=== PATIENT | female | born 1955 | race African-American/Black ===

== ENCOUNTER → 2016-11-27 | Outpatient (CLI) | payer BC, MEDICARE | LOC: RAD 14:14 | PROVIDERS: ATTEND Family Medicine | DX: J44.9 Chronic obstructive pulmonary disease, unspecified (principal); L03.222 Acute lymphangitis of neck; R05 Cough | CPT/HCPCS: 70491; 71260 ==

== ENCOUNTER 2018-04-20 17:23 | Inpatient (IN) | payer BC, MEDICARE ==
--- NOTE | 2018-04-20 19:43 | ER Document Report ---
ED General - General Information source: Patient, Relative TRAVEL OUTSIDE OF THE [place] IN LAST 30 DAYS: No <JOLENE SKELTON - Last Filed: 04/20/18 23:03> <OLU PETERS - Last Filed: 04/21/18 03:22> - General Chief Complaint: Neck Swelling Stated Complaint: NECK SWELLING Time Seen by Provider: 04/20/18 19:38 Notes: 62 y.o female presents to the ED with LT sided neck edema of onset last night. Relative at bedside reports that she has had lymphadenopathy recently and had a biopsy of her bilateral cervical lymph nodes on 04/09/18, about 1.[address] Gama. He reports that the edema to her RT sided neck is the same since before her biopsy but that last night the LT side started to swell more. They report using cold compresses for the edema but were without any relief. Pt also reports pain to her LT sided neck and report taking Tylenol for her pain but is without any relief from her pain as well. She denies any ear pain or cough. Pt's PCP is Dr. Drake. She also reports a Hx of seizures and states that she has not taken her seizure medications tonight that she usually takes at 1800. ( JOLENE SKELTON) - Related Data Allergies/Adverse Reactions: No Known Allergies Allergy (Unverified 03/26/11 21:44) Past Medical History - General Information source: Patient, [facility] Records - Social History Smoking Status: Smoker,Current Status Unk Frequency of alcohol use: Previous records report heavy, current status unknown Family History: Reviewed & Not Pertinent, Other - Past Medical History Cardiac Medical History: Reports: Hx Hypertension Pulmonary Medical History: Reports: Hx Pneumonia Neurological Medical History: Reports: Hx Seizures Endocrine Medical History: Reports: Hx Diabetes Mellitus Type 2 Past Surgical History: Reports: Hx Neurologic Surgery - craniotomy. Denies: Hx Hysterectomy - Immunizations Hx Diphtheria, Pertussis, Tetanus Vaccination: No <JOLENE SKELTON - Last Filed: 04/20/18 23:03> Review of Systems - Review of Systems Constitutional: No symptoms reported EENT: See HPI. denies: Ear pain Cardiovascular: No symptoms reported Respiratory: See HPI. denies: Cough Gastrointestinal: No symptoms reported Genitourinary: No symptoms reported Female Genitourinary: No symptoms reported Musculoskeletal: No symptoms reported Skin: No symptoms reported Hematologic/Lymphatic: See HPI, Other - Edema to cervical lymphnodes, increased edema to Lt sided neck with pain Neurological/Psychological: No symptoms reported -: Yes All other systems reviewed and negative <JOLENE SKELTON - Last Filed: 04/20/18 23:03> Physical Exam <JOLENE SKELTON - Last Filed: 04/20/18 23:03> <OLU PETERS - Last Filed: 04/21/18 03:22> - Vital signs Vitals: Temp Pulse BP Pulse Ox 99.4 F 77 135/85 H 99 04/20/18 17:54 04/20/18 17:54 04/20/18 17:54 04/20/18 17:54 - Notes Notes: Physical Exam: General: Alert, appears well. HEENT: Normocephalic. Atraumatic. PERRL. Extraocular movements intact. Oropharynx clear. Neck: Supple. Cervical lymphadenopathy bilaterally. LT sided swelling and tenderness to palpation, no erythema or fluctuance. Respiratory: No respiratory distress. Clear and equal breath sounds bilaterally. Cardiovascular: Regular rate and rhythm. Abdominal: Normal Inspection. Non-tender. No distension. Normal Bowel Sounds. Back: Non-tender. No deformity or step off. Extremities: Moves all four extremities. Upper extremities: Normal inspection. Normal ROM. Lower extremities: Normal inspection. No edema. Normal ROM. Neurological: Normal cognition. AAOx3. Normal speech. Psychological: Normal affect. Normal Mood. Skin: Warm. Dry. Normal color. (JOLENE SKELTON) Course - Laboratory Result Diagrams: 04/20/18 20:34 04/20/18 20:34 <JOLENE SKELTON - Last Filed: 04/20/18 23:03> - Laboratory Result Diagrams: 04/20/18 20:34 04/20/18 20:34 - Diagnostic Test Radiology reviewed: Reports reviewed - Consults Dr. Drake Time consulted: 22:50 Consulted provider: will see as inpatient Dr. Felix Time consulted: 23:00 Consulted provider: will see as inpatient <OLU PETERS - Last Filed: 04/21/18 03:22> - Re-evaluation Re-evalutation: 04/20/18 23:[address] Felix who recommends Decadron and Unisom. Called Dr. Drake back , [place] [facility] [place] 04/20/18 23:04 Informed pt of plan to admit. She is comfortable with plan. (JOLENE SKELTON) Patient is a 62-year-old female who comes in with bilateral parotid swelling. Patient also has an abscess versus tumor of the left side. Given larger swelling, elevated white count, and pain, P patient will be kept under Dr. Drake service. She has been discussed with Dr. Landaverde from ENT. Recommends dexamethasone and Unasyn. He will also discuss this patient with Dr. Drake. Patient is agreeable to admission at this time. Stable at time of admission. No evidence for airway compromise. (OLU PETERS) - Vital Signs Vital signs: Temp Pulse Resp BP Pulse Ox 99.4 F 77 135/85 H 99 04/20/18 17:54 04/20/18 17:54 04/20/18 17:54 04/20/18 17:54 - Laboratory Laboratory results interpreted by me: 04/20/18 04/20/18 04/20/18 20:34 20:34 21:20 WBC 14.0 H RBC 3.67 L Hgb 11.4 L Hct 34.5 L Absolute Lymphocytes 5.1 H Absolute Monocytes 1.7 H APTT 35.9 H Urine Urobilinogen 2.0 H Critical Care Note - Critical Care Note Total time excluding time spent on procedures (mins): 15 - Patient swelling, diagnosis of peritonitis, consultation with specialist, consultation of admission <OLU PETERS - Last Filed: 04/21/18 03:22> Discharge <JOLENE SKELTON - Last Filed: 04/20/18 23:03> - Discharge Admitting Provider: [facility] Admitted: IMCU <OLU PETERS - Last Filed: 04/21/18 03:22> - Discharge Clinical Impression: Parotitis, acute, Neck infection Condition: Stable Disposition: ADMITTED INPATIENT Scribe Attestation: 04/21/18 03:21 I personally performed the services described in the documentation, reviewed and edited the documentation which was dictated to the scribe in my presence, and it accurately records my words and actions. (OLU PETERS) Scribe Documentation - Scribe Written by Ayanna:: Ayanna Wilson 04/20/18 194 acting as scribe for :: Dilcia <JOLENE SKELTON - Last Filed: 04/20/18 23:03>
[2018-04-20] MEDS ORDERED: MORPHINE SULFATE 10 MG/ML INJ IV ONE (21:10)
[2018-04-20] MEDS ORDERED: ONDANSETRON HCL INJ/PF 4 MG/2 ML SDV IV ONE (21:10)
[2018-04-20 21:11] LABS: ABSOLUTE BASOPHILS # (AUTO) 0.1 10^3/uL (0.0-0.2); ABSOLUTE EOSINOPHILS # (AUTO) 0.2 10^3/uL (0.0-0.6); ABSOLUTE LYMPHOCYTES (AUTO) 5.1 10^3/uL (0.5-4.7); ABSOLUTE MONOCYTES (AUTO) 1.7 10^3/uL (0.1-1.4); ABSOLUTE NEUT (AUTO) 6.9 10^3/uL (1.7-8.2); BASOPHILS % (AUTO) 0.9 % (0-2); EOSINOPHILS % (AUTO) 1.5 % (0-6); HEMATOCRIT 34.5 % (36.0-47.0); HEMOGLOBIN 11.4 g/dL (12.0-15.5); LYMPHOCYTES % (AUTO) 36.5 % (13-45); MEAN CORPUSCULAR HEMOGLOBIN 31.1 pg (27.0-33.4); MEAN CORPUSCULAR VOLUME 94 fl (80-97); MONOCYTES % (AUTO) 11.8 % (3-13); PLATELET COUNT 195 10^3/uL (150-450); RED BLOOD COUNT 3.67 10^6/uL (3.72-5.28); RED CELL DISTRIBUTION WIDTH 13.9 % (11.5-14.0); SEGMENTED NEUTROPHILS % (AUTO) 49.3 % (42-78); TOTAL CELLS COUNTED % (AUTO) 100 %
[2018-04-20 21:13] LABS: INTERNATIONAL RATION (INR) 1.09; PARTIAL THROMBOPLASTIN TIME 35.9 SEC (23.5-35.8); PROTHROMBIN TIME 14.7 SEC (11.4-15.4)
[2018-04-20 21:32] LABS: ALANINE AMINOTRANSFERASE 33 U/L (9-52); ALBUMIN 4.1 g/dL (3.5-5.0); ALKALINE PHOSPHATASE 89 U/L (38-126); ANION GAP 9 (5-19); ASPARTATE AMINO TRANSFERASE 27 U/L (14-36); BILIRUBIN,DIRECT 0.3 mg/dL (0.0-0.4); BILIRUBIN,TOTAL 0.6 mg/dL (0.2-1.3); BLOOD UREA NITROGEN 16 mg/dL (7-20); CALCIUM 9.3 mg/dL (8.4-10.2); CARBON DIOXIDE 30 mmol/L (22-30); CHLORIDE 103 mmol/L (98-107); GLUCOSE 86 mg/dL (75-110); POTASSIUM 4.1 mmol/L (3.6-5.0); SODIUM 142.3 mmol/L (137-145); TOTAL PROTEIN 7.3 g/dL (6.3-8.2)
--- NOTE | 2018-04-20 22:42 | RADIOLOGY REPORT (SQ) ---
EXAM DESCRIPTION: CT SOFT TISSUE NECK WITH COMPLETED DATE/TIME: 04/20/2018 10:10 pm REASON FOR STUDY: L>R lateral neck swelling COMPARISON: 11/27/2016 TECHNIQUE: Post IV contrasted scanning from skull base through lung apices with review of bone, soft tissue and lung windows. Reconstructed coronal and sagittal MPR images reviewed. All images stored on PACS. All CT scanners at this facility use dose modulation, iterative reconstruction, and/or weight based d osing when appropriate to reduce radiation dose to as low as reasonably achievable (ALARA). [facility]: Dose Right [facility]: CareDose [facility]: Dose Right [facility]: Teradose 4D [facility]: [employer] CONTRAST TYPE AND DOSE: contrast/concentration: Isovue 350.00 mg/ml; Total Contrast Delivered: 75.0 ml; Total Saline Delivered: 55.0 ml RENAL FUNCTION: BUN 16 creatinine 0.7 RADIATION DOSE: CT Rad equipment meets quality standard of care and radiation dose reduction techniq ues were employed. CTDIvol: 6.0 mGy. DLP: 194 mGy-cm. . LIMITATIONS: None. FINDINGS: SKULL BASE: Intact. MAJOR SALIVARY GLANDS: Parotid glands are prominent. The left is larger and is heterogeneous and the re is a 2 cm low-density lesion. LYMPHADENOPATHY: There are some small posterior cervical nodes on the left. MUCOSAL MASSES OR ASYMMETRY: No mucosal masses or asymmetry. LARYNX/CORDS: No abnormal findings. VASCULAR STRUCTURES: The major vessels are patent. LUNG APICES: Clear. BONES: Intact. THYROID: Thyroid is heterogeneous with low-density lesions in the lower pole on each side, larger on the left than the right. PARANASAL SINUSES: Clear. OTHER: No other significant finding. IMPRESSION: 1. The parotid glands are enlarged. The left is larger than the right. Parotitis, cat scratch fever, mumps, multiple noninfectious etiologies. 2. There is a 2 cm rounded low-density lesion in the left parotid gland. Abscess, Warthin's tumor, sialocoele. 3. Heterogeneous thyroid gland with low-density lesions in the lower poles. TECHNICAL DOCUMENTATION: JOB ID: [id number] Quality ID # [id number]: Final reports with documentation of one or more dose reduction techniques (e.g., Au tomated exposure control, adjustment of the mA and/or kV according to patient size, use of iterative reconstruction technique) 2010 [employer]- All Rights Reserved Reading location - IP/workstation name: [email or web address]
--- NOTE | 2018-04-20 22:48 | RADIOLOGY REPORT (SQ) ---
EXAM DESCRIPTION: CT HEAD WITHOUT COMPLETED DATE/TIME: 04/20/2018 10:10 pm REASON FOR STUDY: ams COMPARISON: 02/15/2015 TECHNIQUE: Axial images acquired through the brain without intravenous contrast. Images reviewed wi th bone, brain and subdural windows. Additional sagittal and coronal reconstructions were generated. Images stored on PACS. All CT scanners at this facility use dose modulation, iterative reconstruction, and/or weight based d osing when appropriate to reduce radiation dose to as low as reasonably achievable (ALARA). [facility]: Dose Right [facility]: CareDose [facility]: Dose Right [facility]: Teradose 4D [facility]: [employer] RADIATION DOSE: CT Rad equipment meets quality standard of care and radiation dose reduction techniq ues were employed. CTDIvol: 53.2 mGy. DLP: 1097 mGy-cm. mGy. LIMITATIONS: None. FINDINGS: VENTRICLES: Normal size and contour. CEREBRUM: Postsurgical changes in the right temporal lobe. No hemorrhage. No midline shift or mass effect. No acute infarction. Areas of low density in the white matter most likely chronic small vess el ischemic changes. CEREBELLUM: No masses. No hemorrhage. No alteration of density. No evidence for acute infarction. EXTRAAXIAL SPACES: No fluid collections. No masses. ORBITS AND GLOBE: No intra- or extraconal masses. Normal contour of globe without masses. CALVARIUM: No fracture. PARANASAL SINUSES: No fluid or mucosal thickening. SOFT TISSUES: No mass or hematoma. OTHER: No other significant finding. IMPRESSION: Stable findings in the brain as described. Chronic microvascular ischemic changes and s urgical changes. EVIDENCE OF ACUTE STROKE: NO. COMMENT: Quality ID # 436: Final reports with documentation of one or more dose reduction techniques (e.g., Automated exposure control, adjustment of the mA and/or kV according to patient size, use of iterative reconstruction technique) TECHNICAL DOCUMENTATION: JOB ID: [id number] [employer]- All Rights Reserved Reading location - IP/workstation name: [email or web address]
[2018-04-20] MEDS ORDERED: DEXAMETHASONE SOD PHOSPHATE INJ 4 MG/1 ML VIAL IV ONE (22:57)
[2018-04-20] MEDS ORDERED: AMPICILLIN SOD/SULBACTAM 3 GM VIAL IV ONE (22:58)
[2018-04-20] MEDS ORDERED: IPRATROPIUM/ALBUTEROL 0.5-2.5 MG/3 ML AMPUL NEB PRN (23:01)
[2018-04-20] MEDS ORDERED: ACETAMINOPHEN 325 MG TABLET PO PRN (23:01)
[2018-04-20] MEDS ORDERED: OXYCODONE-ACETAMINOPHEN 5-325 MG TABLET PO PRN (23:01)
[2018-04-20] MEDS ORDERED: ONDANSETRON HCL INJ/PF 4 MG/2 ML SDV IV PRN (23:01)
[2018-04-20 23:03] LABS: APPEARANCE,URINE SLIGHTLY-CLOUDY; BILIRUBIN,URINE NEGATIVE (NEGATIVE); COLOR,URINE YELLOW; GLUCOSE, URINE NEGATIVE (NEGATIVE); KETONES,URINE NEGATIVE (NEGATIVE); LEUKOCYTE ESTERASE,URINE NEGATIVE (NEGATIVE); NITRITE,URINE NEGATIVE (NEGATIVE); PROTEIN,URINE NEGATIVE (NEGATIVE); URINE SPECIFIC GRAVITY 1.021
[2018-04-20] MEDS ORDERED: AMPICILLIN SOD/SULBACTAM 3 GM VIAL IV PRN (23:14)
[2018-04-20] MEDS ORDERED: LEVETIRACETAM 500 MG TABLET PO ONE (23:15)
[2018-04-21] MEDS ORDERED: AMPICILLIN SODIUM/SULBACTAM NA 3 GM in NORMAL SALINE 100 ML IV SCH ×2
[2018-04-21] MEDS ORDERED: AMPICILLIN SOD/SULBACTAM 3 GM VIAL IV ONE (05:35)
[2018-04-21] MEDS ORDERED: LEVETIRACETAM 500 MG TABLET PO ONE (05:35)
[2018-04-21] MEDS ORDERED: DEXAMETHASONE SOD PHOSPHATE INJ 4 MG/1 ML VIAL IV ONE (05:35)
[2018-04-21 07:54] LABS: ALANINE AMINOTRANSFERASE 25 U/L (9-52); ALBUMIN 4.8 g/dL (3.5-5.0); ALKALINE PHOSPHATASE 111 U/L (38-126); ANION GAP 14 (5-19); ASPARTATE AMINO TRANSFERASE 34 U/L (14-36); BILIRUBIN,DIRECT 0.4 mg/dL (0.0-0.4); BILIRUBIN,TOTAL 0.9 mg/dL (0.2-1.3); BLOOD UREA NITROGEN 9 mg/dL (7-20); CALCIUM 9.6 mg/dL (8.4-10.2); CARBON DIOXIDE 26 mmol/L (22-30); CHLORIDE 102 mmol/L (98-107); GLUCOSE 83 mg/dL (75-110); POTASSIUM 4.4 mmol/L (3.6-5.0); SODIUM 142.3 mmol/L (137-145); TOTAL PROTEIN 8.6 g/dL (6.3-8.2)
[2018-04-21 08:01] LABS: ABSOLUTE BASOPHILS # (AUTO) 0.1 10^3/uL (0.0-0.2); ABSOLUTE EOSINOPHILS # (AUTO) 0.2 10^3/uL (0.0-0.6); ABSOLUTE MONOCYTES (AUTO) 1.4 10^3/uL (0.1-1.4); ABSOLUTE NEUT (AUTO) 8.5 10^3/uL (1.7-8.2); BASOPHILS % (AUTO) 0.6 % (0-2); EOSINOPHILS % (AUTO) 1.2 % (0-6); HEMATOCRIT 40.4 % (36.0-47.0); HEMOGLOBIN 13.4 g/dL (12.0-15.5); MEAN CORPUSCULAR HEMOGLOBIN 31.3 pg (27.0-33.4); MEAN CORPUSCULAR HGB CONC 33.1 g/dL (32.0-36.0); MEAN CORPUSCULAR VOLUME 95 fl (80-97); MONOCYTES % (AUTO) 9.9 % (3-13); PLATELET COUNT 160 10^3/uL (150-450); RED BLOOD COUNT 4.27 10^6/uL (3.72-5.28); RED CELL DISTRIBUTION WIDTH 14.3 % (11.5-14.0); SEGMENTED NEUTROPHILS % (AUTO) 60.3 % (42-78); TOTAL CELLS COUNTED % (AUTO) 100 %; WHITE BLOOD COUNT 14.1 10^3/uL (4.0-10.5)
--- NOTE | 2018-04-21 08:37 | PDOC H&P ---
History of Present Illness Admission Date/PCP: 04/20/18 23:12 LIBORIO SHOOK MD Patient complains of: Left-sided neck swelling History of Present Illness: MARA SPEARS is a 62 year old female This is a 62-year-old female with a significant history of the COPD chronic smoker history of the seizures disorder and history of ongoing cervical lymphadenopathy with recently patient had a biopsy was performed by Dr. Gama II weeks back Patients came to the emergency department yesterday with a complaint of left- sided neck swelling and complaining of pain Initial workup in the emergency department including the head of the CT was negative and CT of the soft tissue neck suggest that left parotid gland enlargement and a possible abscess versus other etiology Patient's white count was 14.4 patient was afebrile ER physician discussed with the ENT and suggest to start on antibiotic and give her Decadron IV When I saw the patient in the morning in the ER patient is currently doing fair still have a significant left-sided swelling on the parotid area Patient's denied any difficulty in breathing patient's denied any difficulty in swallowing denied any fever or chills Patient at this point admitting in the IMCU for further evaluations as per ER physician discussed with the ENT will see the patient's this morning Past Medical History Cardiac Medical History: Reports: Hypertension Pulmonary Medical History: Reports: Chronic Obstructive Pulmonary Disease (COPD) , Pneumonia Neurological Medical History: Reports: Seizures Endocrine Medical History: Reports: Diabetes Mellitus Type 2 Hematology: Denies: Anemia Past Surgical History Past Surgical History: Denies: Hysterectomy Social History Smoking Status: Current Every Day Smoker Frequency of Alcohol Use: Occasional Hx Recreational Drug Use: No Hx Prescription Drug Abuse: No Family History Family History: Reviewed & Not Pertinent, Other Parental Family History Reviewed: Yes Children Family History Reviewed: Yes Sibling(s) Family History Reviewed.: Yes Medication/Allergy Allergies/Adverse Reactions: No Known Allergies Allergy (Unverified 03/26/11 21:44) Review of Systems Constitutional: ABSENT: chills, fever(s), headache(s), weight gain, weight loss Eyes: ABSENT: visual disturbances Ears: ABSENT: hearing changes Nose, Mouth, and Throat: PRESENT: other Cardiovascular: ABSENT: chest pain, dyspnea on exertion, edema, orthropnea, palpitations Respiratory: ABSENT: cough, hemoptysis Gastrointestinal: ABSENT: abdominal pain, constipation, diarrhea, hematemesis, hematochezia, nausea, vomiting Genitourinary: ABSENT: dysuria, hematuria Musculoskeletal: ABSENT: joint swelling Integumentary: ABSENT: rash, wounds Neurological: ABSENT: abnormal gait, abnormal speech, confusion, dizziness, focal weakness, syncope Psychiatric: ABSENT: anxiety, depression, homidical ideation, suicidal ideation Endocrine: ABSENT: cold intolerance, heat intolerance, menstrual abnormalities, polydipsia, polyuria Hematologic/Lymphatic: ABSENT: easy bleeding, easy bruising, lymphadenopathy Physical Exam Vital Signs: Temp Pulse Resp BP Pulse Ox 99.4 F 77 135/85 H 99 04/20/18 17:54 04/20/18 17:54 04/20/18 17:54 04/20/18 17:54 General appearance: PRESENT: no acute distress, well-developed, well-nourished Head exam: PRESENT: atraumatic, normocephalic Eye exam: PRESENT: conjunctiva pink, EOMI, PERRLA. ABSENT: scleral icterus Ear exam: PRESENT: normal external ear exam Mouth exam: PRESENT: moist, tongue midline Neck exam: PRESENT: full ROM, lymphadenopathy. ABSENT: carotid bruit, JVD, thyromegaly Additional comments: Left-sided parotid significance swelling but no redness with some mild tenderness present Respiratory exam: PRESENT: clear to auscultation charmaine Cardiovascular exam: PRESENT: RRR. ABSENT: diastolic murmur, rubs, systolic murmur Pulses: PRESENT: normal dorsalis pedis pul, +2 pedal pulses bilateral Vascular exam: PRESENT: normal capillary refill GI/Abdominal exam: PRESENT: normal bowel sounds, soft. ABSENT: distended, guarding, mass, organolmegaly, rebound, tenderness Rectal exam: PRESENT: deferred Extremities exam: ABSENT: pedal edema Neurological exam: PRESENT: alert, awake, oriented to person, oriented to place , oriented to time, oriented to situation, CN II-XII grossly intact. ABSENT: motor sensory deficit Psychiatric exam: PRESENT: appropriate affect, normal mood. ABSENT: homicidal ideation, suicidal ideation Skin exam: PRESENT: dry, intact, warm. ABSENT: cyanosis, rash Results Laboratory Results: 04/21/18 06:40 04/21/18 06:40 04/21/18 04/21/18 06:40 06:40 WBC 14.1 H RBC 4.27 Hgb 13.4 Hct 40.4 MCV 95 MCH 31.3 MCHC 33.1 RDW 14.3 H Plt Count 160 Seg Neutrophils % 60.3 Lymphocytes % 28.0 Monocytes % 9.9 Eosinophils % 1.2 Basophils % 0.6 Absolute Neutrophils 8.5 H Absolute Lymphocytes 4.0 Absolute Monocytes 1.4 Absolute Eosinophils 0.2 Absolute Basophils 0.1 Sodium 142.3 Potassium 4.4 Chloride 102 Carbon Dioxide 26 Anion Gap 14 BUN 9 Creatinine 0.53 Est GFR ( Amer) > 60 Est GFR (Non-Af Amer) > 60 Glucose 83 Calcium 9.6 Total Bilirubin 0.9 AST 34 ALT 25 Alkaline Phosphatase 111 Total Protein 8.6 H Albumin 4.8 Impressions: Soft Tissue Neck CT 04/20/18 19:44 IMPRESSION: 1. The parotid glands are enlarged. The left is larger than the right. Parotitis, cat scratch fever, mumps, multiple noninfectious etiologies. 2. There is a 2 cm rounded low-density lesion in the left parotid gland. Abscess, Warthin's tumor, sialocoele. 3. Heterogeneous thyroid gland with low-density lesions in the lower poles. Head CT 04/20/18 21:10 IMPRESSION: Stable findings in the brain as described. Chronic microvascular ischemic changes and surgical changes. EVIDENCE OF ACUTE STROKE: NO. Assessment & Plan - Diagnosis (1) Mass of left side of neck Plan: Status post biopsy with unclear etiology abscess versus other etiology we will continue IV antibiotic and follow with the ENT (2) Chronic obstructive pulmonary disease Qualifiers: COPD type: chronic bronchitis Is this a current diagnosis for this admission?: Yes Plan: Continues to DuoNeb nebulizer treatments (3) History of alcoholism Is this a current diagnosis for this admission?: Yes Plan: Patient's currently denied any alcohol recentlyWe will continue to monitor the patient's for any withdrawal symptomsWill check the serum alcohol level (4) Parotitis, acute Is this a current diagnosis for this admission?: Yes Plan: Continuous IV antibiotic (5) HTN (hypertension) Qualifiers: Hypertension type: essential hypertension Qualified Code(s): I10 - Essential (primary) hypertension Is this a current diagnosis for this admission?: Yes Plan: Continues to current medication (6) Seizure Is this a current diagnosis for this admission?: Yes Plan: Continues to Keppra and Dilantin and seizures precautions - Time Time Spent: 30 to 50 Minutes Medications reviewed and adjusted accordingly: Yes Anticipated discharge: Home Within: Other - Inpatient Certification Medical Necessity: Need Close Monitoring Due to Risk of Patient Decompensation, Need for IV Antibiotics Post Hospital Care: D/C [employer] Documentation - Plan Summary Plan Summary: See other MD orders discussed with the regarding the patient's current conditions discussed with the ER nursing staff regarding the all the plan consult to ENT
[2018-04-21] MEDS ORDERED: CLONIDINE HCL 0.1 MG TABLET PO SCH (10:00)
[2018-04-21] MEDS ORDERED: LEVETIRACETAM 500 MG TABLET PO SCH ×2 (10:00→18:00)
[2018-04-21] MEDS: FAMOTIDINE 20 MG TABLET PO SCH ×2 (10:11→23:36)
[2018-04-21] MEDS: ENOXAPARIN SODIUM INJ 40 MG/0.4 ML DISP.SYRIN SUBCUT SCH (10:11)
[2018-04-21] MEDS: LEVETIRACETAM 500 MG TABLET PO SCH ×2 (11:59→23:00)
[2018-04-21] MEDS: AMPICILLIN SODIUM/SULBACTAM NA 3 GM in NORMAL SALINE 100 ML IV SCH ×3 (12:02→23:37)
[2018-04-21] MEDS: DEXAMETHASONE SOD PHOS INJ 10 MG/1 ML VIAL IV SCH ×2 (15:29→23:40)
--- NOTE | 2018-04-21 15:47 | RADIOLOGY REPORT (SQ) ---
EXAM DESCRIPTION: SOFT TISSUE NECK COMPLETED DATE/TIME: 04/21/2018 2:01 pm REASON FOR STUDY: parotid swelling COMPARISON: None. NUMBER OF VIEWS: Two views. TECHNIQUE: AP and lateral radiographic image of the soft tissues of the neck. LIMITATIONS: None. FINDINGS: EPIGLOTTIS: Normal. Contour normal. Aryepiglottic folds normal. PREVERTEBRAL SOFT TISSUES: Normal. No soft tissue swelling. SUBGLOTTIC AREA: Normal. No narrowing. RETROPHARYNGEAL SPACE: Normal. No soft tissue masses. BONES: No significant findings. LUNG APICES: Normal. OTHER: Soft tissue swelling over the left jaw, presumably in the region of the parotid. IMPRESSION: Left facial soft tissue swelling. TECHNICAL DOCUMENTATION: JOB ID: [id number] [employer]- All Rights Reserved Reading location - IP/workstation name: [email or web address]
--- NOTE | 2018-04-21 16:37 | RADIOLOGY REPORT (SQ) ---
EXAM DESCRIPTION: U/S THYROID/SFT TISS HD NECK COMPLETED DATE/TIME: 04/21/2018 4:17 pm REASON FOR STUDY: THYROID NODULES COMPARISON: CT soft tissue neck 04/20/2018, 11/27/2016 TECHNIQUE: Dynamic and static wilkinson-scale images acquired of the thyroid gland. Selected additional c olor/power Doppler images recorded. All images stored to PACS. LIMITATIONS: None. FINDINGS: RIGHT LOBE: Normal size, 4 cm craniocaudad by 1.5 cm AP by 1.3 cm transverse. Homogeneous echotexture. In the right posterior midpole gland, a 1.4 cm simple cyst is present. This correlate s with findings on CT 04/20/2018. LEFT LOBE: Normal size, 4.7 cm craniocaudad by 3.2 cm AP by 2 cm transverse. Homogeneous echotexture . There is a mixed cystic and solid mass in the lower pole left lobe thyroid measuring 2.8 x 2.3 by 1.8 cm in size. This correlates with findings on CT 04/20/2018. Consider fine-needle aspirate of thi s lesion under ultrasound guidance. ISTHMUS: Normal size. Homogeneous echotexture. No cystic or solid masses. OTHER: No other significant finding. IMPRESSION: Dominant nodule 2.8 cm diameter left lower pole thyroid, mixed cystic and solid lesion. Consider fine-needle aspirate this nodule under ultrasound guidance TECHNICAL DOCUMENTATION: JOB ID: [id number]- All Rights Reserved Reading location - IP/workstation name: [email or web address]
[2018-04-21] MEDS ORDERED: LEVETIRACETAM 1500 MG PO SCH (18:00)
[2018-04-21] MEDS: PHENYTOIN SODIUM EXTENDED 100 MG CAPSULE PO SCH (18:08)
[2018-04-21] MEDS: CLONIDINE HCL 0.1 MG TABLET PO SCH (18:08)
--- NOTE | 2018-04-21 20:49 | RADIOLOGY REPORT (SQ) ---
EXAM DESCRIPTION: MRI HEAD WITHOUT COMPLETED DATE/TIME: 04/21/2018 8:39 pm REASON FOR STUDY: lethargy COMPARISON: None. TECHNIQUE: Multiplanar imaging includes non-contrasted T1, T2, FLAIR, and Diffusion with ADC map seq uences. Images stored on PACS. LIMITATIONS: None. FINDINGS: ANATOMY: No anomalies. Normal vascular flow voids. Pituitary fossa normal. CSF SPACES: Normal in size and contour. No hemorrhage. CEREBRUM: A few high-signal intensity lesions scattered throughout the white matter on FLAIR imaging with distribution suggesting chronic micro-vascular ischemic change. Sulci and gyri normal in size a nd contour. No evidence of hemorrhage, mass or extraaxial fluid collection. POSTERIOR FOSSA: No signal alteration. No hemorrhage. No edema, masses or mass effect. Internal nikhil tory canals, cerebello-pontine angles, mastoids normal. DIFFUSION: Negative for acute or sub-acute infarction. ORBITS: No masses. Globes normal. PARANASAL SINUSES: No fluid levels. Mucosa normal. OTHER: No mass seen behind the ear. IMPRESSION: MINIMAL MICROVASCULAR ISCHEMIC CHANGE. OTHERWISE NORMAL STUDY. EVIDENCE OF ACUTE STROKE: NO. TECHNICAL DOCUMENTATION: JOB ID: [id number] [employer]- All Rights Reserved Reading location - IP/workstation name: [email or web address]
[2018-04-21] MEDS ORDERED: LORAZEPAM INJ 2 MG/1 ML VIAL ONE (23:32)
[2018-04-21] MEDS ORDERED: BACLOFEN 20 MG TABLET ONE (23:33)
[2018-04-21] MEDS: BUDESONIDE/FORMOTEROL 160-4.5 MCG 60 PUFF/6 GM MDI IH SCH (23:34)
[2018-04-21] MEDS ORDERED: LORAZEPAM INJ 2 MG/1 ML VIAL IV ONE (23:45)
[2018-04-22] MEDS ORDERED: LORAZEPAM INJ 2 MG/1 ML VIAL ONE (03:13)
[2018-04-22] MEDS ORDERED: LORAZEPAM INJ 2 MG/1 ML VIAL IV ONE (03:30)
[2018-04-22 05:32] LABS: ABSOLUTE BASOPHILS # (AUTO) 0.1 10^3/uL (0.0-0.2); ABSOLUTE LYMPHOCYTES (AUTO) 2.4 10^3/uL (0.5-4.7); ABSOLUTE MONOCYTES (AUTO) 0.6 10^3/uL (0.1-1.4); ABSOLUTE NEUT (AUTO) 11.7 10^3/uL (1.7-8.2); BASOPHILS % (AUTO) 0.6 % (0-2); HEMATOCRIT 34.1 % (36.0-47.0); HEMOGLOBIN 11.4 g/dL (12.0-15.5); LYMPHOCYTES % (AUTO) 16.1 % (13-45); MEAN CORPUSCULAR HEMOGLOBIN 31.1 pg (27.0-33.4); MEAN CORPUSCULAR HGB CONC 33.4 g/dL (32.0-36.0); MEAN CORPUSCULAR VOLUME 93 fl (80-97); MONOCYTES % (AUTO) 3.8 % (3-13); PLATELET COUNT 185 10^3/uL (150-450); RED BLOOD COUNT 3.66 10^6/uL (3.72-5.28); RED CELL DISTRIBUTION WIDTH 13.9 % (11.5-14.0); SEGMENTED NEUTROPHILS % (AUTO) 79.5 % (42-78); TOTAL CELLS COUNTED % (AUTO) 100 %; WHITE BLOOD COUNT 14.7 10^3/uL (4.0-10.5)
[2018-04-22] MEDS: CLONIDINE HCL 0.1 MG TABLET PO SCH ×2 (06:52→17:38)
[2018-04-22] MEDS: AMPICILLIN SODIUM/SULBACTAM NA 3 GM in NORMAL SALINE 100 ML IV SCH ×2 (06:55→12:49)
[2018-04-22] MEDS: LORAZEPAM INJ 2 MG/1 ML VIAL IV PRN ×2 (07:02→15:54)
[2018-04-22] MEDS ORDERED: PHENYTOIN SODIUM EXTENDED 100 MG CAPSULE PO SCH (08:00)
--- NOTE | 2018-04-22 09:36 | RADIOLOGY REPORT (SQ) ---
EXAM DESCRIPTION: U/S THYROID/SFT TISS HD NECK COMPLETED DATE/TIME: 04/21/2018 4:17 pm REASON FOR STUDY: lt parotid gland COMPARISON: CT soft tissue neck 04/20/2018, 11/27/2016 TECHNIQUE: Dynamic and static wilkinson-scale images acquired of the right and left parotid glands and ne ck soft tissues. Selected additional color/power Doppler images recorded. All images stored to PACS. LIMITATIONS: None. FINDINGS: On the right side, the parotid gland is normal in size. No ductal dilatation. In the sup erficial lobe right parotid gland, just superior to the retromandibular vein, there is a 1.2 x 0.9 x 0.6 cm complex cystic and solid nodule. Good acoustic through transmission. On the left side, the parotid gland is normal in size. No ductal dilatation. No definite intrinsic left-sided parotid mass. There are a adjacent enlarged periparotid lymph node. Massive bulky right and left cervical adenopathy is present, largest left-sided lymph node measures a bout 4 x 2.5 cm in size. Largest right cervical lymph node measures about 2 x 1 cm in size. IMPRESSION: Massive cervical adenopathy Small primary right superficial lobe parotid nodule 12 mm in size. No definite left primary parotid nodule. Lesion seen on prior CT likely represents an adjacent enlar ged cervical lymph node. TECHNICAL DOCUMENTATION: JOB ID: [id number] [employer]- All Rights Reserved Reading location - IP/workstation name: [email or web address]
[2018-04-22] MEDS: FAMOTIDINE 20 MG TABLET PO SCH (09:50)
[2018-04-22] MEDS: LEVETIRACETAM 500 MG TABLET PO SCH (09:50)
[2018-04-22] MEDS: ENOXAPARIN SODIUM INJ 40 MG/0.4 ML DISP.SYRIN SUBCUT SCH (09:50)
[2018-04-22] MEDS: BUDESONIDE/FORMOTEROL 160-4.5 MCG 60 PUFF/6 GM MDI IH SCH (09:58)
[2018-04-22] MEDS ORDERED: NICOTINE 21 MG/24 HR PATCH.TD24 TD SCH (10:00)
--- NOTE | 2018-04-22 16:49 | PDOC DISCHARGE SUMMARY ---
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 Patient have an appointment appointment to see a [facility] next Thursday (2) Chronic obstructive pulmonary disease Is this a current diagnosis for this admission?: Yes Summary: Continues to current medications (3) History of alcoholism Is this a current diagnosis for this admission?: Yes (4) Parotitis, acute Is this a current diagnosis for this admission?: Yes Summary: Continues Augmentin (5) HTN (hypertension) Is this a current diagnosis for this admission?: Yes Summary: Currently stable (6) Seizure Is this a current diagnosis for this admission?: Yes Summary: Current medications (7) Warthin tumor Is this a current diagnosis for this admission?: Yes Summary: His benign conditions I have appointment to see you and see ENT next week - Additional Information Discharge Diet: Cardiac Discharge Activity: Activity As Tolerated Prescriptions: Amoxicillin/Potassium Clav [Augmentin 500-125 Tablet] 1 each PO TID #21 tablet Ibuprofen 800 mg PO RTQ8HP PRN #30 tablet PRN Reason: Home Medications: Budesonide/Formoterol Fumarate [Symbicort HFA 160-4.5 mcg Inhaler 6 gm] 2 puff IH Q12 04/21/18 Clonidine HCl [Catapres 0.1 mg Tablet] 0.1 mg PO BID 04/21/18 Ergocalciferol (Vitamin D2) [Drisdol 50,000 unit (1.25MG) Capsule] 50,000 unit PO LOPEZ 04/21/18 Levetiracetam [Keppra] 1,500 mg PO BID 04/21/18 Multivitamin [Daily Multiple Vitamin] 1 tab PO DAILY 04/21/18 Phenytoin Sodium Extended [Dilantin] 100 mg PO QPM 04/21/18 Phenytoin Sodium Extended [Dilantin] 200 mg PO QAM 04/21/18 Amoxicillin/Potassium Clav [Augmentin 500-125 Tablet] 1 each PO TID #21 tablet 04/22/18 Ibuprofen 800 mg PO RTQ8HP PRN #30 tablet 04/22/18 History of Present Illness History of Present Illness: MARA SPEARS is a 62 year old female This is a 62-year-old female with a significant history of the COPD chronic smoker history of the seizures disorder and history of ongoing cervical lymphadenopathy with recently patient had a biopsy was performed by Dr. Gama II weeks back Patients came to the emergency department yesterday with a complaint of left- sided neck swelling and complaining of pain Initial workup in the emergency department including the head of the CT was negative and CT of the soft tissue neck suggest that left parotid gland enlargement and a possible abscess versus other etiology Patient's white count was 14.4 patient was afebrile ER physician discussed with the ENT and suggest to start on antibiotic and give her Decadron IV When I saw the patient in the morning in the ER patient is currently doing fair still have a significant left-sided swelling on the parotid area Patient's denied any difficulty in breathing patient's denied any difficulty in swallowing denied any fever or chills Patient at this point admitting in the IMCU for further evaluations as per ER physician discussed with the ENT will see the patient's this morning Hospital Course Hospital Course: This is a 62-year-old female present in the emergency department for left-sided neck swelling patient underwent for the soft tissue neck with suggest the left parotid gland swelling and also CT of the head was negative ER physician discussed with [facility] and he called me and he suggest that patients does not have any infections just given some Decadron IV 3 doses and then given a p.o. antibiotic and he will followHis outpatient in the discharge it Patient admitting in the hospital since underwent for the ultrasound and there is no sign of any infections and the patient had a biopsy was done in the 3 weeks back in [facility] all record review Patient have a Wirthlin tumors and at this point discussed with the [facility] and suggested to follow next Thursday also over the Since white count was slightly elevated the patient is afebrile all the test does not show any infections and ENT locally suggests no sign of any infections patients remain afebrile Patient also feels agitated in the hospital most likely ongoing alcohol issues Patient still continues to smoke Patient is otherwise doing well alert awake pretty much answer all questions Very extensive discussions with the regarding the patient's current condition and close follow-up Patients have already appointment at [facility] ENT next Thursday further evaluations She underwent further MRI of the head was all negative Patient's otherwise started on p.o. Augmentin and a nonsteroidal anti- inflammatory medications for the pain to avoid any more narcotics due to Unstable gait Issue Discussed with the the patient started running any fever any short of breath is to bring him to the ER Physical Exam Vital Signs: Temp Pulse Resp BP Pulse Ox 98.9 F 86 16 131/91 H 100 04/22/18 15:22 04/22/18 15:22 04/22/18 15:22 04/22/18 15:22 04/22/18 15:22 Intake & Output 04/21/18 04/22/18 04/23/18 06:59 06:59 06:59 Intake Total 637 337 Balance 637 337 Weight 54.3 kg General appearance: PRESENT: no acute distress, well-developed, well-nourished Head exam: PRESENT: atraumatic, normocephalic Eye exam: PRESENT: conjunctiva pink, EOMI, PERRLA. ABSENT: scleral icterus Ear exam: PRESENT: normal external ear exam Mouth exam: PRESENT: moist, tongue midline Neck exam: PRESENT: full ROM, lymphadenopathy. ABSENT: carotid bruit, JVD, thyromegaly Additional comments: Left-sided of the neck swelling but no redness some mild tenderness to touch Respiratory exam: PRESENT: clear to auscultation charmaine Cardiovascular exam: PRESENT: RRR. ABSENT: diastolic murmur, rubs, systolic murmur Pulses: PRESENT: normal dorsalis pedis pul, +2 pedal pulses bilateral Vascular exam: PRESENT: normal capillary refill GI/Abdominal exam: PRESENT: normal bowel sounds, soft. ABSENT: distended, guarding, mass, organolmegaly, rebound, tenderness Rectal exam: PRESENT: deferred Extremities exam: ABSENT: pedal edema Musculoskeletal exam: PRESENT: ambulatory Neurological exam: PRESENT: alert, awake, oriented to person, oriented to place , oriented to time, oriented to situation, CN II-XII grossly intact. ABSENT: motor sensory deficit Psychiatric exam: PRESENT: appropriate affect, normal mood. ABSENT: homicidal ideation, suicidal ideation Skin exam: PRESENT: dry, intact, warm. ABSENT: cyanosis, rash Results Laboratory Results: 04/22/18 04:41 04/21/18 06:40 04/22/18 04:41 WBC 14.7 H RBC 3.66 L Hgb 11.4 L Hct 34.1 L MCV 93 MCH 31.1 MCHC 33.4 RDW 13.9 Plt Count 185 Seg Neutrophils % 79.5 H Lymphocytes % 16.1 Monocytes % 3.8 Eosinophils % 0.0 Basophils % 0.6 Absolute Neutrophils 11.7 H Absolute Lymphocytes 2.4 Absolute Monocytes 0.6 Absolute Eosinophils 0.0 Absolute Basophils 0.1 Impressions: Soft Tissue Neck CT 04/20/18 19:44 IMPRESSION: 1. The parotid glands are enlarged. The left is larger than the right. Parotitis, cat scratch fever, mumps, multiple noninfectious etiologies. 2. There is a 2 cm rounded low-density lesion in the left parotid gland. Abscess, Warthin's tumor, sialocoele. 3. Heterogeneous thyroid gland with low-density lesions in the lower poles. Head CT 04/20/18 21:10 IMPRESSION: Stable findings in the brain as described. Chronic microvascular ischemic changes and surgical changes. EVIDENCE OF ACUTE STROKE: NO. Head MRI 04/21/18 00:00 IMPRESSION: MINIMAL MICROVASCULAR ISCHEMIC CHANGE. OTHERWISE NORMAL STUDY. EVIDENCE OF ACUTE STROKE: NO. Soft Tissue Neck X-Ray 04/21/18 00:00 IMPRESSION: Left facial soft tissue swelling. Thyroid Ultrasound 04/21/18 00:00 IMPRESSION: Massive cervical adenopathy Small primary right superficial lobe parotid nodule 12 mm in size. No definite left primary parotid nodule. Lesion seen on prior CT likely represents an adjacent enlarged cervical lymph node. Qualifiers - * PATIENT BEING DISCHARGED WITH ANY OF THE FOLLOWING DIAGNOSIS: No VTE patient discharged on overlapping Therapy?: Yes Plan Time Spent: Greater than 30 Minutes - Discharge home with the stable conditions Discussed with the extensively regarding the all the precautions and a follow-up This with the local ENT in suggest follow in office with him pt already have appointment to see the [facility] ENT next week for possible surgical evaluations
[2018-04-22] MEDS: PHENYTOIN SODIUM EXTENDED 100 MG CAPSULE PO SCH (17:37)
[2018-04-22 17:45] VITALS: BP 134/89
[2018-04-22] MEDS ORDERED: AMPICILLIN SODIUM/SULBACTAM NA 3 GM in NORMAL SALINE 50 ML IV SCH (18:00)
== END 2018-04-22 18:35 | disposition home or self-care (01) | DRG 156 ==
LOC: ER 17:23 → EH 23:12 → 3S 04-21 16:55 → 3N 04-21 19:15
PROVIDERS: ADMIT Family Medicine; ATTEND Family Medicine
DX: D11.9 Benign neoplasm of major salivary gland, unspecified (principal); K11.21 Acute sialoadenitis; I10 Essential (primary) hypertension; F10.21 Alcohol dependence, in remission; G40.909 Epilepsy, unspecified, not intractable, without status epilepticus; J44.9 Chronic obstructive pulmonary disease, unspecified; F17.200 Nicotine dependence, unspecified, uncomplicated; Z79.899 Other long term (current) drug therapy; E11.9 Type 2 diabetes mellitus without complications; F10.20 Alcohol dependence, uncomplicated
CPT/HCPCS: 36415; 70360; 70450; 70491; 70551; 76536; 80053; 81001; 85025; 85610; 85730; 87040; 96374; 96375; 99285; J0295; J1100; J1650; J2060; J2270; J2405; J3490

== ENCOUNTER → 2020-03-29 | Outpatient (CLI) | payer BC, MEDICARE ==
--- NOTE | 2020-03-30 09:43 | WOMENS IMAGING REPORT ---
EXAM DESCRIPTION: 3D SCREENING MAMMO BILAT IMAGES COMPLETED DATE/TIME: 03/29/2020 12:32 pm REASON FOR STUDY: SCREENING N64.4 MASTODYNIA COMPARISON: 02/06/2016 and 10/10/2013. EXAM PARAMETERS: Views: Standard craniocaudal and mediolateral oblique views of each breast recorded using digital acquisition and breast tomosynthesis. Read with the assistance of CAD. .[facility] - R2 Airplane Tube Builder Version 9.2 LIMITATIONS: Markedly limited study due to extremely dense breast tissue. FINDINGS: No suspicious masses, suspicious calcifications or architectural distortion. No areas of c oncern. IMPRESSION: NEGATIVE MAMMOGRAM. BIRADS 1. BREAST DENSITY: d. The breasts are extremely dense, which lowers the sensitivity of mammography. BIRAD: ASSESSMENT: 1 NEGATIVE RECOMMENDATION: THE EXAM IS MARKEDLY LIMITED DUE TO THE EXTREMELY DENSE BREAST TISSUE. THE PATIENT MAY BENEFIT FROM SCREENING BREAST MR. OTHERWISE FOLLOW-UP WITH ANNUAL MAMMOGRAPHY. COMMENT: The patient has been notified of the results by letter per SA requirements. Additional no tification policies are in place for contacting patient with suspicious or incomplete findings. Quality ID #225: The [employer] recommends an annual screening mammogram for women aged 40 years or over. This facility utilizes a reminder system to ensure that all patients receive reminder letters, and/or direct phone calls for appointments. This includes reminders for routine scr eening mammograms, diagnostic mammograms, or other Breast Imaging Interventions when appropriate. Th is patient will be placed in the appropriate reminder system. TECHNICAL DOCUMENTATION: FINDING NUMBER: (1) ASSESSMENT: (1) JOB ID: [id number] 2010 [employer]- All Rights Reserved Reading location - IP/workstation name: [email or web address]
== END ==
LOC: WI 10:50
PROVIDERS: ATTEND Physician Assistant
DX: N64.4 Mastodynia (principal)
CPT/HCPCS: 77063; 77067

== ENCOUNTER 2020-04-15 06:03 | Inpatient (IN) | payer BC, MEDICARE ==
--- NOTE | 2020-04-15 06:34 | ER Document Report ---
ED General - General Chief Complaint: Fall Stated Complaint: FALL,LEG PAIN Time Seen by Provider: 04/15/20 06:22 Primary Care Provider: OLU JONES PA-C [Primary Care Provider] - Follow up as needed TRAVEL OUTSIDE OF THE [place] IN LAST 30 DAYS: No - HPI Notes: Chief complaint: Fall with pain right rib area and questionable altered mental status History of present illness: 64-year-old female who lives alone apparently sustained a fall at home with no loss of consciousness stating that she simply lost her balance. Patient complains of dull headache on the right side and also complains of pain along the lower right rib cage area. She called EMS and was transported here by them. They noted that she had a significantly elevated blood pressure around 160/115 initially. They also thought her mental status was "slightly abnormal". They documented a normal fingerstick blood glucose prior to transport. Patient was able to tell me she takes medications for hypertension. She says she takes "some other medicines" but could not specifically tell me the names of these or what she is being treated for. Review of past records shows that patient has a longstanding history of alcoholism. She denies any recent ingestion of alcohol. She denies any drug use. She says she smokes "a couple of cigarettes" every day. Patient was noted to have some soft tissue swelling over the right side of her neck area. She says she thinks this is new. 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 Past records also indicate the patient has a history of seizures which are probably mostly alcohol withdrawal seizures in the past. - Related Data Allergies/Adverse Reactions: No Known Allergies Allergy (Verified 04/15/20 06:18) Past Medical History - General Information source: Patient, [facility] Records - Social History Smoking Status: Current Some Day Smoker Frequency of alcohol use: Rare Drug Abuse: None Lives with: Alone Family History: Reviewed & Not Pertinent, Other Patient has homicidal ideation: No - Past Medical History Cardiac Medical History: Reports: Hx Hypertension Pulmonary Medical History: Reports: Hx COPD, Hx Pneumonia Neurological Medical History: Reports: Hx Seizures Endocrine Medical History: Reports: Hx Diabetes Mellitus Type 2 Renal/ Medical History: Denies: Hx Peritoneal Dialysis Past Surgical History: Reports: Hx Neurologic Surgery - craniotomy. Denies: Hx Hysterectomy - Immunizations Hx Diphtheria, Pertussis, Tetanus Vaccination: No Review of Systems - Review of Systems Notes: Constitutional: Negative for fever. HENT: Negative for sore throat. Eyes: Negative for visual changes. Cardiovascular: Negative for chest pain. Respiratory: Negative for shortness of breath. Gastrointestinal: Negative for abdominal pain, vomiting or diarrhea. Genitourinary: Negative for dysuria. Musculoskeletal: Negative for back pain. Skin: Negative for rash. Neurological: Negative for headaches, weakness or numbness. 10 point ROS negative except as marked above and in HPI. Physical Exam - Vital signs Vitals: Resp Pulse Ox 13 100 04/15/20 06:09 04/15/20 06:09 - Notes Notes: GENERAL: Elderly female with colorful affect otherwise appearing in no acute distress. SKIN: Good turgor no rashes. HEAD: Normocephalic atraumatic. EYES: PERRLA. EOMI. Conjunctivae and sclerae clear. EARS: CANALS AND TMS CLEAR. NOSE: CLEAR. MOUTH: Moist mucosa. Poor dentition. No stridor or edema. No drooling. NECK: Supple. Patient has a rubbery 3.0 x 5.0 cm freely mobile nontender mass right side of the neck along the anterior border of the sternocleidomastoid muscle. This is nonpulsatile. No thyromegaly. No adenopathy. Carotids 2+ without bruits. No JVD. BACK: Symmetrical without tenderness. CHEST: Exquisitely tender along inferior margin rib cage right side. No step- off or crepitus. Respirations unlabored. Breath sounds clear and symmetrical. HEART: Regular rhythm. No murmur gallop or rub. ABDOMEN: Soft nontender without masses, organomegaly or rebound. Bowel sounds normally active. No bruits. GENITALIA: Deferred. EXTREMITIES: Fingers are very long and hyperextensible. No edema. No calf tenderness. Cap refill less than 1.5 seconds. Dorsalis pedis and posterior tibial pulses 3+ and symmetrical. NEUROLOGICAL: GCS 15. Alert and oriented x3. Normal gait. Fluent speech. Cranial nerves II through XII intact. Sensorimotor and cerebellar normal. Normal tone. PSYCHIATRIC: Colorful affect. Course - Re-evaluation Re-evalutation: 04/15/20 11:53 CT of chest and abdomen per radiologist shows a Thai B aortic dissection. Patient's body habitus is highly suggestive of undiagnosed Marfan syndrome. I am starting her on IV esmolol infusion and have contacted transfer center at [facility] in [facility] to coordinate emergency transfer. 04/15/20 12:00 I have gone back and reexamined this patient's pulses carefully and I find no deficit or asymmetry. Her abdomen is soft and nontender. The only discomfort she is describing is along her right costal margin where she fell at home several days ago. Esmolol infusion is being initiated at this time we are awaiting callback from cardiothoracic surgery at [facility]. 04/15/20 12:41 Case was discussed with Dr. Smith from [facility] vascular surgery. He does not feel that she needs surgical intervention at this time. He recommends admission to critical care unit locally for continued aggressive treatment of her blood pressure with IV esmolol as we have initiated. He recommends we get systolic pressure below 120. Also recommends addition of oral ANDRAE inhibitor. Case has been discussed with on-call document management analyst and patient will be admitted. - Vital Signs Vital signs: Temp Pulse Resp BP Pulse Ox 98.9 F 15 173/143 H 99 04/15/20 06:15 04/15/20 11:47 04/15/20 11:47 04/15/20 11:47 - Laboratory Result Diagrams: 04/15/20 06:13 04/15/20 06:13 Laboratory results interpreted by me: 04/15/20 04/15/20 04/15/20 06:13 06:13 08:00 RBC 3.56 L Hgb 10.7 L Hct 32.5 L RDW 16.1 H Lymph % (Auto) 52.2 H Absolute Lymphs (auto) 5.1 H Seg Neutrophils % 37.8 L BUN 21 H Creatinine 0.51 L Alkaline Phosphatase 130 H Phenytoin 4.2 L - Diagnostic Test Radiology reviewed: Reports reviewed - Contrast CT chest/abdomen per radiologist: Thai B aortic dissection extending to upper abdomen. - EKG Interpretation by Me Additional EKG results interpreted by me: 04/15/20 06:44 Twelve-lead EKG from 0619 hrs. reviewed contemporaneously by me showing normal sinus rhythm with a rate of 81 and a QRS axis of -48 degrees. Intervals are normal. Nonspecific T wave changes. No ST shift. Comparison to prior tracing from 04/05/2012 shows no significant interval changes. Indication for current study: Altered mental status. Critical Care Note - Critical Care Note Total time excluding time spent on procedures (mins): 65 - Thai type B aortic dissection with initiation of esmolol drip and transfer to tertiary care facility Discharge - Discharge Clinical Impression: Dissecting aneurysm of thoracic aorta, Thai type B, Hypertensive emergency Condition: Critical Disposition: ADMITTED INPATIENT Admitting Provider: Rusty ([facility]) Unit Admitted: ICU Referrals: OLU JONES PA-C [Primary Care Provider] - Follow up as needed
[2020-04-15 06:46] LABS: ABSOLUTE BASOPHILS # (AUTO) 0.1 10^3/uL (0.0-0.2); ABSOLUTE EOSINOPHILS # (AUTO) 0.1 10^3/uL (0.0-0.6); ABSOLUTE LYMPHOCYTES (AUTO) 5.1 10^3/uL (0.5-4.7); ABSOLUTE MONOCYTES (AUTO) 0.7 10^3/uL (0.1-1.4); ABSOLUTE NEUT (AUTO) 3.7 10^3/uL (1.7-8.2); BASOPHILS % (AUTO) 1.5 % (0-2); EOSINOPHILS % (AUTO) 1.2 % (0-6); HEMATOCRIT 32.5 % (36.0-47.0); HEMOGLOBIN 10.7 g/dL (12.0-15.5); LYMPHOCYTES % (AUTO) 52.2 % (13-45); MEAN CORPUSCULAR HEMOGLOBIN 30.1 pg (27.0-33.4); MEAN CORPUSCULAR HGB CONC 32.9 g/dL (32.0-36.0); MEAN CORPUSCULAR VOLUME 91 fl (80-97); MONOCYTES % (AUTO) 7.3 % (3-13); PLATELET COUNT 359 10^3/uL (150-450); RED BLOOD COUNT 3.56 10^6/uL (3.72-5.28); RED CELL DISTRIBUTION WIDTH 16.1 % (11.5-14.0); SEGMENTED NEUTROPHILS % (AUTO) 37.8 % (42-78); TOTAL CELLS COUNTED % (AUTO) 100 %; WHITE BLOOD COUNT 9.7 10^3/uL (4.0-10.5)
[2020-04-15 07:02] LABS: ALKALINE PHOSPHATASE 130 U/L (38-126); ANION GAP 6 (5-19); ASPARTATE AMINO TRANSFERASE 26 U/L (14-36); BILIRUBIN,TOTAL 0.4 mg/dL (0.2-1.3); BLOOD UREA NITROGEN 21 mg/dL (7-20); CALCIUM 9.3 mg/dL (8.4-10.2); CARBON DIOXIDE 30 mmol/L (22-30); CHLORIDE 105 mmol/L (98-107); GLUCOSE 94 mg/dL (75-110); POTASSIUM 4.1 mmol/L (3.6-5.0); TOTAL PROTEIN 7.8 g/dL (6.3-8.2)
[2020-04-15 07:13] LABS: ALCOHOL < 10 mg/dL (NONE DETECTED)
--- NOTE | 2020-04-15 07:14 | RADIOLOGY REPORT (SQ) ---
CLINICAL HISTORY: FALL COMPARISON: 07/17/2015. TECHNIQUE: XR CHEST 1 VIEW 04/15/2020 6:27 AM CDT FINDINGS: Cardiac silhouette is normal in size. Lungs are clear without consolidation, atelectasis, mass or edema. There is no pleural effusion. There is no pneumothorax. There are no acute osseous findings. There is prominence of the descending portion of the thoracic aorta. This may be secondary to positioning. IMPRESSION: Clear lungs.
--- NOTE | 2020-04-15 08:32 | EKG REPORT ---
SEVERITY:- ABNORMAL ECG - SINUS RHYTHM LEFT ANTERIOR FASCICULAR BLOCK BORDERLINE T ABNORMALITIES, INFERIOR LEADS : Confirmed by: Khari Sullivan MD 15-Apr-2020 08:31:51
--- NOTE | 2020-04-15 09:02 | RADIOLOGY REPORT (SQ) ---
EXAM DESCRIPTION: CT HEAD WITHOUT IMAGES COMPLETED DATE/TIME: 04/15/2020 7:41 am REASON FOR STUDY: FALL COMPARISON: MRI brain, 04/21/2018 TECHNIQUE: Axial images acquired through the brain without intravenous contrast. Images reviewed wi th bone, brain and subdural windows. Additional sagittal and coronal reconstructions were generated. Images stored on PACS. All CT scanners at this facility use dose modulation, iterative reconstruction, and/or weight based d osing when appropriate to reduce radiation dose to as low as reasonably achievable (ALARA). [facility]: Dose Right [facility]: CareDose [facility]: Dose Right [facility]: Teradose 4D [facility]: [employer] RADIATION DOSE: CT Rad equipment meets quality standard of care and radiation dose reduction techniq ues were employed. CTDIvol: 53.2 mGy. DLP: 964 mGy-cm. mGy. LIMITATIONS: None. FINDINGS: VENTRICLES: Normal size and contour. CEREBRUM: No masses. No hemorrhage. No midline shift. No evidence for acute infarction. Normal gra y-white matter differentiation. Chronic encephalomalacia and gliosis in the right temporal lobe, sta ble from prior. CEREBELLUM: No masses. No hemorrhage. No alteration of density. No evidence for acute infarction. EXTRAAXIAL SPACES: No fluid collections. No masses. ORBITS AND GLOBE: No intra- or extraconal masses. Normal contour of globe without masses. CALVARIUM: Hyperostosis frontalis interna is noted. Right temporal craniectomy, stable. No acute fr acture, lytic or blastic bone lesion. PARANASAL SINUSES: No fluid or mucosal thickening. SOFT TISSUES: No mass or hematoma. OTHER: No other significant finding. IMPRESSION: 1. No acute intracranial hemorrhage, mass, or evidence of acute territorial infarct. 2. Chronic encephalomalacia and gliosis in the right temporal lobe with right temporal craniectomy, s table from prior. EVIDENCE OF ACUTE STROKE: NO. COMMENT: Quality ID # 436: Final reports with documentation of one or more dose reduction techniques (e.g., Automated exposure control, adjustment of the mA and/or kV according to patient size, use of iterative reconstruction technique) TECHNICAL DOCUMENTATION: JOB ID: [id number] [employer]- All Rights Reserved Reading location - IP/workstation name: [email or web address]
--- NOTE | 2020-04-15 09:22 | RADIOLOGY REPORT (SQ) ---
EXAM DESCRIPTION: CT SOFT TISSUE NECK WITH IMAGES COMPLETED DATE/TIME: 04/15/2020 7:41 am REASON FOR STUDY: Soft tissue mass neck right COMPARISON: 04/20/2018 TECHNIQUE: Post IV contrasted scanning from skull base through lung apices with review of bone, soft tissue and lung windows. Reconstructed coronal and sagittal MPR images reviewed. All images stored on PACS. All CT scanners at this facility use dose modulation, iterative reconstruction, and/or weight based d osing when appropriate to reduce radiation dose to as low as reasonably achievable (ALARA). [facility]: Dose Right [facility]: CareDose [facility]: Dose Right [facility]: Teradose 4D [facility]: [employer] CONTRAST TYPE AND DOSE: contrast/concentration: Isovue 350.00 mmol/ml; Total Contrast Delivered: 75. 0 ml; Total Saline Delivered: 55.0 ml RENAL FUNCTION: GFR > 60. RADIATION DOSE: CT Rad equipment meets quality standard of care and radiation dose reduction techniq ues were employed. CTDIvol: 7.1 mGy. DLP: 218 mGy-cm. . LIMITATIONS: None. FINDINGS: SKULL BASE: Intact. MAJOR SALIVARY GLANDS: There is a 2.5 x 2.6 cm heterogeneously enhancing mass within the right paroti d gland, slightly increased in size from previous of 2 x 1.8 cm on 04/20/2018. No parotid ductal dila tion or surrounding inflammatory change. The left parotid gland has a normal appearance. LYMPHADENOPATHY: No adenopathy. MUCOSAL MASSES OR ASYMMETRY: No mucosal masses or asymmetry. LARYNX/CORDS: No abnormal findings. VASCULAR STRUCTURES: The major vessels are patent. LUNG APICES: Clear. BONES: Intact. THYROID: Multiple bilateral thyroid nodules, the largest at the inferior pole left thyroid lobe measu res 1.4 cm. These are unchanged from prior. PARANASAL SINUSES: Clear. OTHER: There is the appearance of a double lumen at the posterior aspect of aortic arch with surround ing soft tissue attenuation at the aortic arch, new from previous examination. This extends out of t he field of view and is incompletely evaluated. IMPRESSION: 1. At the posterior aspect of the aortic arch there appears to be a double lumen, possibly secondary to tortuosity, however this is a new appearance for the patient and there is also new surrounding sof t tissue attenuation at the aortic arch, and dissection cannot be excluded. Further evaluation with CT angiography of the chest is recommended. 2. Heterogeneous mixed solid and cystic parotid gland lesion has increased slightly in size since pre vious examination 04/20/2018. Differential includes Warthin's tumor, pleomorphic adenoma, other soft tissue masses, given increase in size, ENT consultation is recommended. 3. Multiple bilateral thyroid nodules, not significantly changed since 2018. COMMENT: Findings discussed with Dr. Roldan on 04/15/2020 at 0909 hours. TECHNICAL DOCUMENTATION: JOB ID: [id number] Quality ID # [id number]: Final reports with documentation of one or more dose reduction techniques (e.g., Au tomated exposure control, adjustment of the mA and/or kV according to patient size, use of iterative reconstruction technique) 2010 [employer]- All Rights Reserved Reading location - IP/workstation name: [email or web address]
[2020-04-15 10:11] LABS: APPEARANCE,URINE CLEAR; BILIRUBIN,URINE NEGATIVE (NEGATIVE); COLOR,URINE AMBER; GLUCOSE, URINE NEGATIVE (NEGATIVE); KETONES,URINE NEGATIVE (NEGATIVE); PROTEIN,URINE NEGATIVE (NEGATIVE); URINE SPECIFIC GRAVITY 1.031; UROBILINOGEN,URINE NEGATIVE mg/dL (<2.0)
[2020-04-15 10:26] LABS: URINE AMPHETAMINES SCREEN NEGATIVE; URINE BARBITURATES SCREEN NEGATIVE; URINE BENZODIAZEPINES SCREEN NEGATIVE; URINE COCAINE SCREEN NEGATIVE; URINE MARIJUANA (THC) SCREEN NEGATIVE; URINE METHADONE SCREEN NEGATIVE; URINE PHENCYCLIDINE SCREEN NEGATIVE
--- NOTE | 2020-04-15 11:08 | RADIOLOGY REPORT (SQ) ---
EXAM DESCRIPTION: CTA CHEST IMAGES COMPLETED DATE/TIME: 04/15/2020 10:36 am REASON FOR STUDY: Abnormal aorta on neck scan COMPARISON: 11/27/2016 TECHNIQUE: CT scan of the chest performed using helical scanning technique with dynamic intravenous contrast injection. Images reviewed with lung, soft tissue and bone windows. Reconstructed coronal and sagittal MPR images reviewed. Additional 3 dimensional post-processing performed to develop Maximal Intensity Projection images (OK P). All images stored on PACS. All CT scanners at this facility use dose modulation, iterative reconstruction, and/or weight based d osing when appropriate to reduce radiation dose to as low as reasonably achievable (ALARA). [facility]: Dose Right [facility]: CareDose [facility]: Dose Right [facility]: Teradose 4D [facility]: Lutonix CONTRAST TYPE AND DOSE: contrast/concentration: Isovue 350.00 mmol/ml; Total Contrast Delivered: 46. 0 ml; Total Saline Delivered: 72.0 ml RENAL FUNCTION: GFR > 60. RADIATION DOSE: CT Rad equipment meets quality standard of care and radiation dose reduction techniq ues were employed. CTDIvol: 13.2 - 14.3 mGy. DLP: 501 mGy-cm. . LIMITATIONS: None. FINDINGS: LUNGS AND PLEURA: Dependent atelectasis. Stable 5 mm ground-glass nodule in the middle lo be. No effusions. AORTA AND GREAT VESSELS: Thai type B dissection. Maximum diameter 5.4 x 5.0 cm AP by transverse diameter. Dissection extends into the upper abdomen. HEART: No pericardial effusion. PULMONARY ARTERIES: No emboli visualized in the main pulmonary arteries or the segmental branches. HILAR AND MEDIASTINAL STRUCTURES: No identified masses or abnormal nodes. HARDWARE: None in the chest. UPPER ABDOMEN: See above. THYROID AND OTHER SOFT TISSUES: No masses. No adenopathy. BONES: No acute or significant finding. 3D MIPS: Confirm above findings. OTHER: No other significant finding. IMPRESSION: Thai type B dissection. Maximum aortic diameter 5.4 x 5.0 cm. Dissection extends i nto the upper abdomen. COMMENT: Quality ID # [id number]: Final reports with documentation of one or more dose reduction techniques (e.g., Automated exposure control, adjustment of the mA and/or kV according to patient size, use of iterative reconstruction technique) TECHNICAL DOCUMENTATION: JOB ID: [id number] 2010 [employer]- All Rights Reserved Reading location - IP/workstation name: [email or web address]
[2020-04-15] MEDS ORDERED: ESMOLOL HCL/SOD CL 2,500 MG/250 ML RTUINJ IV PRN (11:42)
[2020-04-15] MEDS ORDERED: ENALAPRIL MALEATE 5 MG TABLET PO ONE (12:27)
--- NOTE | 2020-04-15 13:08 | RADIOLOGY REPORT (SQ) ---
EXAM DESCRIPTION: ANKLE RIGHT COMPLETE IMAGES COMPLETED DATE/TIME: 04/15/2020 12:55 pm REASON FOR STUDY: injury COMPARISON: None. NUMBER OF VIEWS: Three views. TECHNIQUE: AP, lateral, and oblique radiographic images acquired of the right ankle. LIMITATIONS: None. FINDINGS: MINERALIZATION: Osteopenia. BONES: No acute fracture or dislocation. No worrisome bone lesions. JOINTS: No effusions. SOFT TISSUES: No soft tissue swelling. No foreign body. OTHER: No other significant finding. IMPRESSION: NO RADIOGRAPHIC EVIDENCE OF ACUTE INJURY. TECHNICAL DOCUMENTATION: JOB ID: [id number] 2010 [employer]- All Rights Reserved Reading location - IP/workstation name: [email or web address]
[2020-04-15] MEDS ORDERED: LORAZEPAM 1 MG TABLET PO ONE (13:59)
[2020-04-15] MEDS ORDERED: IPRATROPIUM/ALBUTEROL 0.5-2.5 MG/3 ML AMPUL NEB PRN (14:57)
[2020-04-15 16:13] LABS: INTERNATIONAL RATION (INR) 1.07; PROTHROMBIN TIME 14.1 SEC (11.4-15.4)
[2020-04-15 16:14] LABS: PARTIAL THROMBOPLASTIN TIME 38.2 SEC (23.5-35.8)
[2020-04-15 16:16] LABS: D-DIMER 2.27 ug/mL (0.00-0.50)
[2020-04-15 16:28] LABS: CREATINE KINASE MB 0.72 ng/mL (<4.55); NT PRO BNP 494 pg/mL (<125)
[2020-04-15 16:37] LABS: TROPONIN I < 0.012 ng/mL
[2020-04-15] MEDS: ESMOLOL HCL/SOD CL 2,500 MG/250 ML RTUINJ IV PRN ×2 (16:42→20:32)
--- NOTE | 2020-04-15 17:59 | Operative Report ---
Bedside Procedure - History of Present Illness History of Present Illness: Chief complaint: Fall with pain right rib area and questionable altered mental status History of present illness: 64-year-old female who lives alone apparently sustained a fall at home with no loss of consciousness stating that she simply lost her balance. Patient complains of dull headache on the right side and also complains of pain along the lower right rib cage area. She called EMS and was transported here by them. They noted that she had a significantly elevated blood pressure around 160/115 initially. They also thought her mental status was "slightly abnormal". They documented a normal fingerstick blood glucose prior to transport. Patient was able to tell me she takes medications for hypertension. She says she takes "some other medicines" but could not specifically tell me the names of these or what she is being treated for. Review of past records shows that patient has a longstanding history of alcoholism. She denies any recent ingestion of alcohol. She denies any drug use. She says she smokes "a couple of cigarettes" every day. Patient was noted to have some soft tissue swelling over the right side of her neck area. She says she thinks this is new. 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 Past records also indicate the patient has a history of seizures which are probably mostly alcohol withdrawal seizures in the past. Indication for Procedure: Stand type B aortic dissection; accelerated hypertension Date: 04/15/20 Provider: WILLY OJEDA - Additional Procedures Arterial Line Time performed: 17:56 Notes: Radial Arterial Line Procedure Note INDICATION: Thai type B aortic dissection PROCEDURE PLATE SHOP HELPER: Bryce Ojeda MD CONSENT: Consent was obtained from the patient prior to the procedure. Indications, risks, and benefits were explained at length. PROCEDURE SUMMARY: A time out was performed. My hands were washed immediately prior to the procedure. I wore a mask with protective eyewear and sterile gloves throughout the procedure. After an Mikal test was performed to ensure adequate perfusion, the RIGHT wrist was prepped using chlorhexidine scrub and draped in sterile fashion using a three quarter sheet drape and sterile towels. The radial pulse was identified and the wrist was positioned in the usual fashion. Anesthesia was achieved using 1% lidocaine. Using the Arrow Radial Arterial Line Kit, a needle was inserted into the radial artery. Arterial blood was seen to pulsate in the flash chamber. The internal guidewire was advanced easily into the radial artery. The catheter was then advanced over the wire and the needle and wire were withdrawn. The catheter was sutured in place. A sterile opsite was placed over the catheter at the insertion site. The patient tolerated the procedure without any hemodynamic compromise. At the time of procedure completion, the catheter was connected to the manager treasury and calibrated. Appropriate waveform and blood pressure tracing was observed. Estimated blood loss is 2 mL.
--- NOTE | 2020-04-15 17:59 | CRITICAL CARE ADMISSION REPORT ---
HPI Date:: 04/15/20 Time:: 15:48 Reason for ICU Reason:: Hitchins type B aortic dissection Admission Date/Time & PCP: Admission Date/Time: 04/15/20 12:51 Primary Care Provider: OLU JONES PA-C HPI: Chief complaint: Fall with pain right rib area and questionable altered mental status History of present illness: 64-year-old female who lives alone apparently sustained a fall at home with no loss of consciousness stating that she simply lost her balance. Patient complains of dull headache on the right side and also complains of pain along the lower right rib cage area. She called EMS and was transported here by them. They noted that she had a significantly elevated blood pressure around 160/115 initially. They also thought her mental status was "slightly abnormal". They documented a normal fingerstick blood glucose prior to transport. Patient was able to tell me she takes medications for hypertension. She says she takes "some other medicines" but could not specifically tell me the names of these or what she is being treated for. Review of past records shows that patient has a longstanding history of alcoholism. She denies any recent ingestion of alcohol. She denies any drug use. She says she smokes "a couple of cigarettes" every day. Patient was noted to have some soft tissue swelling over the right side of her neck area. She says she thinks this is new. 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 Past records also indicate the patient has a history of seizures which are probably mostly alcohol withdrawal seizures in the past. History obtained from:: Patient - Diagnosis/Plan (1) Dissecting aneurysm of thoracic aorta, Hitchins type B Is this a current diagnosis for this admission?: Yes Plan: * Case discussed with Dr. Roldan, who reports that he referred the case to Jamal (Dr. Smith) and was advised that the patient should be admitted for anti-impulse therapy with optimization of heart rate and blood pressure followed by outpatient referral for definitive management of her aortic dissection. * Blood pressure control has been initiated with esmolol infusion. * Radial artery cannulation. * Need to achieve heart rate less than 60. Systolic blood pressure should be maintained between 100-120. * This patient will need referral to a center that can handle definitive manage ment of her aortic dissection. Whether she is transferred there directly or as an outpatient may be determined after hemodynamic optimization has been achieved. (2) Accelerated hypertension Is this a current diagnosis for this admission?: Yes Plan: Esmolol infusion for now. Her home medications include clonidine 0.1 mg p.o. twice daily. Hold this medication for now. (3) Chronic obstructive pulmonary disease Qualifiers: COPD type: chronic bronchitis Is this a current diagnosis for this admission?: Yes Plan: DuoNeb/Pulmicort scheduled. Of note, the patient is not on maintenance therapy for COPD at home. Beta adrenergic activity of albuterol may impede esmolol efficacy. (4) Mass of left side of neck Is this a current diagnosis for this admission?: No (5) Seizure Is this a current diagnosis for this admission?: Yes Plan: Continue Dilantin 100 mg p.o. daily (extended release) and Keppra 750 mg p.o. daily. Past Medical History Cardiac Medical History: Reports: Hypertension Pulmonary Medical History: Reports: Chronic Obstructive Pulmonary Disease (COPD), Pneumonia Neurological Medical History: Reports: Seizures Endocrine Medical History: Reports: Diabetes Mellitus Type 2 Hematology: Denies: Anemia Past Surgical History Past Surgical History: Denies: Hysterectomy Social/Family History - Social History Lives with: Alone Smoking Status: Current Some Day Smoker Frequency of Alcohol Use: Occasional Hx Recreational Drug Use: No Drugs: None Hx Prescription Drug Abuse: No - Medication/Allergies Home Medications: Clonidine HCl [Catapres 0.1 mg Tablet] 0.1 mg PO BID@0600,1800 04/21/18 Ergocalciferol (Vitamin D2) [Drisdol 50,000 unit (1.25MG) Capsule] 50,000 unit PO MO 04/21/18 Levetiracetam [Keppra] 750 mg PO Q6AM 04/21/18 Multivitamin [Daily Multiple Vitamin] 1 tab PO Q6AM 04/21/18 Phenytoin Sodium Extended [Dilantin] 100 mg PO Q6AM 04/21/18 Ibuprofen 800 mg PO Q8HP PRN 04/15/20 Allergies/Adverse Reactions: No Known Allergies Allergy (Verified 04/15/20 06:18) Review of Systems Constitutional: ABSENT: anorexia, chills, fatigue, fever(s), headache(s), night sweats, weakness, weight gain, weight loss Eyes: ABSENT: visual disturbances Ears: ABSENT: hearing changes Nose, Mouth, and Throat: ABSENT: headache(s), mouth pain, sore throat, vertigo Cardiovascular: ABSENT: chest pain, dyspnea on exertion, edema, orthropnea, palpitations Respiratory: ABSENT: cough, dyspnea, hemoptysis, sputum Gastrointestinal: ABSENT: abdominal pain, bloating, coffee ground emesis, constipation, diarrhea, dysphagia, heartburn, hematemesis, hematochezia, melena, nausea, vomiting Genitourinary: ABSENT: difficulty urinating, dysuria, hematuria, nocturia Musculoskeletal: PRESENT: other - Right-sided rib cage pain and breast pain. ABSENT: back pain, deformity, joint swelling, muscle weakness Integumentary: ABSENT: diaphoresis, erythema, lesions, pruritus, rash Neurological: ABSENT: abnormal gait, abnormal speech, confusion, convulsions, dizziness, focal weakness, syncope Psychiatric: ABSENT: anxiety, depression, homidical ideation, suicidal ideation Endocrine: ABSENT: cold intolerance, heat intolerance, polydipsia, polyuria Hematologic/Lymphatic: ABSENT: easy bleeding, easy bruising Physical Exam Vital Signs: Temp Pulse Resp BP Pulse Ox 96.9 F L 17 170/123 H 100 04/15/20 13:05 04/15/20 13:05 04/15/20 13:05 04/15/20 13:05 Intake & Output 04/14/20 04/15/20 04/16/20 06:59 06:59 06:59 Intake Total 27 Balance 27 Weight 46.9 kg Weight/Height Weight 46.9 kg Height 1.68 m General appearance: PRESENT: no acute distress, well-developed, well-nourished, other - Marfanoid. Head exam: PRESENT: atraumatic, normocephalic Eye exam: PRESENT: conjunctiva pink, EOMI, PERRLA. ABSENT: scleral icterus Mouth exam: PRESENT: moist, tongue midline Neck exam: PRESENT: other - Palpable left-sided 3 cm mass (parathyroid?). ABSENT: carotid bruit, JVD, lymphadenopathy, thyromegaly Respiratory exam: PRESENT: clear to auscultation charmaine. ABSENT: rales, rhonchi, wheezes Cardiovascular exam: PRESENT: RRR. ABSENT: diastolic murmur, rubs, systolic murmur Pulses: PRESENT: normal carotid pulses, normal radial pulses, normal femoral pulses GI/Abdominal exam: PRESENT: normal bowel sounds, soft. ABSENT: distended, guarding, mass, organolmegaly, rebound, tenderness Extremities exam: PRESENT: full ROM. ABSENT: calf tenderness, clubbing, pedal edema Musculoskeletal exam: PRESENT: normal inspection. ABSENT: deformity Neurological exam: PRESENT: alert, awake, oriented to person, oriented to place, oriented to time, oriented to situation, CN II-XII grossly intact. ABSENT: motor sensory deficit Psychiatric exam: PRESENT: appropriate affect, normal mood. ABSENT: homicidal ideation, suicidal ideation Skin exam: PRESENT: dry, intact, warm. ABSENT: cyanosis, rash Laboratory/Radiographs Laboratory Results: 04/15/20 06:13 04/15/20 06:13 04/15/20 04/15/20 04/15/20 06:13 06:13 10:00 WBC 9.7 RBC 3.56 L Hgb 10.7 L Hct 32.5 L MCV 91 MCH 30.1 MCHC 32.9 RDW 16.1 H Plt Count 359 Seg Neutrophils % 37.8 L Sodium 140.5 Potassium 4.1 Chloride 105 Carbon Dioxide 30 Anion Gap 6 BUN 21 H Creatinine 0.51 L Est GFR ( Amer) > 60 Glucose 94 Calcium 9.3 Magnesium 1.9 Total Bilirubin 0.4 AST 26 Alkaline Phosphatase 130 H Total Protein 7.8 Albumin 4.0 Urine Color LANI Urine Appearance CLEAR Urine pH 8.0 Ur Specific [place] 1.031 Urine Protein NEGATIVE Urine Glucose (UA) NEGATIVE Urine Ketones NEGATIVE Urine Blood NEGATIVE Urine RBC (Auto) 0 Impressions: Chest X-Ray 04/15/20 06:27 IMPRESSION: Clear lungs. Head CT 04/15/20 06:27 IMPRESSION: 1. No acute intracranial hemorrhage, mass, or evidence of acute territorial infarct. 2. Chronic encephalomalacia and gliosis in the right temporal lobe with right temporal craniectomy, stable from prior. EVIDENCE OF ACUTE STROKE: NO. Soft Tissue Neck CT 04/15/20 06:27 IMPRESSION: 1. At the posterior aspect of the aortic arch there appears to be a double lumen, possibly secondary to tortuosity, however this is a new appearance for the patient and there is also new surrounding soft tissue attenuation at the aortic arch, and dissection cannot be excluded. Further evaluation with CT angiography of the chest is recommended. 2. 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 Differential includes Warthin's tumor, pleomorphic adenoma, other soft tissue masses, given increase in size, ENT consultation is recommended. 3. Multiple bilateral thyroid nodules, not significantly changed since 2018. Chest/Abdomen CTA 04/15/20 09:15 IMPRESSION: Thai type B dissection. Maximum aortic diameter 5.4 x 5.0 cm. Dissection extends into the upper abdomen. Ankle X-Ray 04/15/20 12:40 IMPRESSION: NO RADIOGRAPHIC EVIDENCE OF ACUTE INJURY. All labs, radiographs, diagnostic studies and EKGs were personally reviewed: Yes In addition, reports of radiographic and diagnostic studies were read: Yes Critical Time Critical Time (minutes): 60 -: The care of a critically ill patient is dynamic. This note represents a static moment in the admission process. Orders and treatments may be given simultaneously and urgently, and time is not community relations representative of the treatment process. This patient requires Critical Care secondary to life threatening organ or limb dysfunction. Without Critical Care services, the patient is at risk for increased mortality and morbidity.
--- NOTE | 2020-04-15 18:50 | XCELERA REPORT ---
[address] [address] Transthoracic Echocardiogram Report Name: MARA SPEARS Age: 64 yrs Gender: Female : 1955 Patient Status: Inpatient [address] Study Date: 04/15/2020 01:25 PM Height: 66 in Weight: 103 lb BSA: 1.5 m2 Procedure: A two-dimensional transthoracic echocardiogram with color flow and Doppler was performed. Study Quality: Fair. Reason For Study: aortic dissection / AR History: aortic dissection / AR. Ordering Physician: WILLY JACOBSON Performed By: Steph Avery Interpretation Summary The left ventricle is normal in size. There is mild asymmetric left ventricular hypertrophy. There is no 'SANKET' or LVOT obstruction.Hence no IHSS.(HOCM). LV EF is 60% Left ventricular systolic function is normal. Doppler measurements suggest impaired left ventricular relaxation, which is associated with grade I/IV or mild diastolic dysfunction The left ventricular wall motion is normal. There is no thrombus. Probably no ASD,VSD,or PFO seen. The right ventricle is grossly normal size. The right ventricle is not well visualized secondary to technical limitations The right atrium is normal. The left atrial size is normal. There is no evidence of mitral valve prolapse. There is a trace to mild amount of mitral regurgitation There is a trace to mild amount of aortic regurgitation There is a trace to mild amount of tricuspid regurgitation There is mild pulmonary hypertension by echo RVSP is 35 to 40 mm of Hg, with RA mean of 5 to 10. There is no pulmonic valvular stenosis. There is no pulmonic valvular regurgitation. The aortic root is normal size. No Aortic root disection. The inferior vena cava appeared normal and decreased > 50% with respiration (RAP 5-10 mmHg) MMode/2D Measurements & Calculations RVDd: 2.7 cm LVIDd: 4.0 cm FS: 28.1 % Ao root diam: 2.6 cm IVSd: 1.3 cm LVIDs: 2.9 cm EDV(Teich): 70.3 ml Ao root area: 5.1 cm2 LVPWd: 1.1 cm ESV(Teich): 31.7 ml EF(Teich): 54.9 % LVOT diam: 2.0 cm LVOT area: 3.1 cm2 Doppler Measurements & Calculations MV E max terell: MV dec slope: Ao V2 max: AI max terell: 71.1 cm/sec 354.3 cm/sec2 123.3 cm/sec 570.1 cm/sec MV A max terell: MV dec time: Ao max PG: AI max P.8 cm/sec 0.20 sec 6.1 mmHg 130.1 mmHg MV E/A: 0.96 CORNELL(V,D): 2.4 cm2 AI dec slope: 250.1 cm/sec2 AI P1/2t: 667.6 msec LV V1 max PG: PA V2 max: TR max terell: 3.6 mmHg 52.3 cm/sec 271.8 cm/sec LV V1 max: PA max P.1 mmHg TR max P.5 cm/sec 29.6 mmHg Left Ventricle The left ventricle is normal in size. There is mild asymmetric left ventricular hypertrophy. There is no 'SANKET' or LVOT obstruction.Hence no IHSS .HOCM). LV EF is 60%. Left ventricular systolic function is normal. Doppler measurements suggest impaired left ventricular relaxation, which is associated with grade I/IV or mild diastolic dysfunction. The left ventricular wall motion is normal. There is no thrombus. Probably no ASD,VSD,or PFO seen. Right Ventricle The right ventricle is grossly normal size. The right ventricle is not well visualized secondary to technical limitations. Atria The right atrium is normal. The left atrial size is normal. Mitral Valve There is no evidence of mitral valve prolapse. There is no vegetation seen on the mitral valve. There is no mitral valve stenosis. There is a trace to mild amount of mitral regurgitation. Aortic Valve There is no aortic valvular vegetation. There is no aortic valve stenosis. There is a trace to mild amount of aortic regurgitation. Tricuspid Valve There is no tricuspid stenosis. There is a trace to mild amount of tricuspid regurgitation. There is mild pulmonary hypertension by echo. RVSP is 35 to 40 mm of Hg, with RA mean of 5 to 10. Pulmonic Valve There is no pulmonic valvular stenosis. There is no pulmonic valvular regurgitation. Great Vessels The aortic root is normal size. No Aortic root disection. The inferior vena cava appeared normal and decreased > 50% with respiration (RAP 5-10 mmHg). Effusions There is no pericardial effusion. : WILLY JACOBSON Lakshmi
[2020-04-15] MEDS ORDERED: METOPROLOL TARTRATE PF/INJ 5 MG/5 ML SDV IV ONE (22:00)
[2020-04-15] MEDS: ACETAMINOPHEN 325 MG TABLET PO PRN (22:38)
[2020-04-16] MEDS: ESMOLOL HCL/SOD CL 2,500 MG/250 ML RTUINJ IV PRN (00:17)
[2020-04-16] MEDS ORDERED: METOPROLOL TARTRATE PF/INJ 5 MG/5 ML SDV IV ONE ×5 (00:30→06:00)
[2020-04-16] MEDS ORDERED: ENALAPRILAT DIHYDRATE INJ/PF 1.25 MG/1 ML SDV IV ONE (01:51)
[2020-04-16] MEDS: PANTOPRAZOLE SODIUM 40 MG TABLET.DR PO SCH (05:56)
[2020-04-16] MEDS: ESMOLOL 2500 MG/NS 250 ML IV PRN ×2 (07:50→14:36)
[2020-04-16] MEDS ORDERED: ESMOLOL HCL/SOD CL 2,500 MG/250 ML RTUINJ IV ONE (07:50)
--- NOTE | 2020-04-16 08:02 | EKG REPORT ---
SEVERITY:- ABNORMAL ECG - SINUS ARRHYTHMIA, RATE 57-79 LEFT ANTERIOR FASCICULAR BLOCK LVH BY VOLTAGE CONSIDER ANTERIOR INFARCT BORDERLINE T ABNORMALITIES, INFERIOR LEADS : Confirmed by: Anamaria Vance 16-Apr-2020 08:01:18
--- NOTE | 2020-04-16 08:25 | RADIOLOGY REPORT (SQ) ---
EXAM DESCRIPTION: CHEST SINGLE VIEW IMAGES COMPLETED DATE/TIME: 04/16/2020 6:10 am REASON FOR STUDY: type B aortic dissection COMPARISON: 04/15/2020 EXAM PARAMETERS: NUMBER OF VIEWS: One view. TECHNIQUE: Single frontal radiographic view of the chest acquired. RADIATION DOSE: NA LIMITATIONS: None. FINDINGS: LUNGS AND PLEURA: Hyperinflation. No focal airspace disease, pleural effusion or pneumoth orax. MEDIASTINUM AND HILAR STRUCTURES: No discrete mass. HEART AND VASCULAR STRUCTURES: Normal heart size. Tortuous aneurysmal descending thoracic aorta. BONES: No acute findings. HARDWARE: None in the chest. OTHER: No other significant finding. IMPRESSION: Tortuous aneurysmal descending thoracic aorta, increased in size from prior, possibly re lated to portable technique. Emphysematous change. TECHNICAL DOCUMENTATION: JOB ID: [id number] 2010 [employer]- All Rights Reserved Reading location - IP/workstation name: [email or web address]
[2020-04-16] MEDS ORDERED: LORAZEPAM INJ 2 MG/1 ML VIAL ONE (09:12)
[2020-04-16 09:52] LABS: ABSOLUTE BASOPHILS # (AUTO) 0.1 10^3/uL (0.0-0.2); ABSOLUTE EOSINOPHILS # (AUTO) 0.1 10^3/uL (0.0-0.6); ABSOLUTE LYMPHOCYTES (AUTO) 4.3 10^3/uL (0.5-4.7); ABSOLUTE MONOCYTES (AUTO) 0.4 10^3/uL (0.1-1.4); ABSOLUTE NEUT (AUTO) 3.4 10^3/uL (1.7-8.2); BASOPHILS % (AUTO) 1.4 % (0-2); EOSINOPHILS % (AUTO) 0.9 % (0-6); HEMATOCRIT 26.4 % (36.0-47.0); LYMPHOCYTES % (AUTO) 52.2 % (13-45); MEAN CORPUSCULAR HEMOGLOBIN 30.3 pg (27.0-33.4); MEAN CORPUSCULAR HGB CONC 32.2 g/dL (32.0-36.0); MEAN CORPUSCULAR VOLUME 94 fl (80-97); MONOCYTES % (AUTO) 4.3 % (3-13); PLATELET COUNT 264 10^3/uL (150-450); RED CELL DISTRIBUTION WIDTH 16.3 % (11.5-14.0); SEGMENTED NEUTROPHILS % (AUTO) 41.2 % (42-78); TOTAL CELLS COUNTED % (AUTO) 100 %; WHITE BLOOD COUNT 8.3 10^3/uL (4.0-10.5)
[2020-04-16 09:53] LABS: HEMOGLOBIN 8.5 g/dL (12.0-15.5)
[2020-04-16] MEDS: PHENYTOIN SODIUM INJ/PF 100 MG/2 ML SDV IV SCH ×2 (09:57→22:22)
[2020-04-16] MEDS ORDERED: LEVETIRACETAM ORAL SOLN 500 MG/5 ML UDCUP PO SCH (10:00)
[2020-04-16] MEDS ORDERED: PHENYTOIN SODIUM EXTENDED 100 MG CAPSULE PO SCH (10:00)
[2020-04-16] MEDS ORDERED: LEVETIRACETAM XR 500 MG TAB.SR.24H PO SCH (10:00)
[2020-04-16] MEDS: LEVETIRACETAM 500 MG/NACL-ISO 500 MG/100 ML RTUPB IV SCH ×2 (10:23→22:20)
[2020-04-16] MEDS: DOCUSATE SODIUM 100 MG/10 ML UDC PO SCH (10:32)
[2020-04-16] MEDS ORDERED: LORAZEPAM INJ 2 MG/1 ML VIAL IV ONE (11:30)
[2020-04-16 11:37] LABS: ANION GAP 8 (5-19); BLOOD UREA NITROGEN 11 mg/dL (7-20); CALCIUM 8.6 mg/dL (8.4-10.2); CARBON DIOXIDE 25 mmol/L (22-30); CHLORIDE 103 mmol/L (98-107); GLUCOSE 105 mg/dL (75-110); POTASSIUM 4.1 mmol/L (3.6-5.0)
[2020-04-16] MEDS: ENALAPRILAT DIHYDRATE INJ/PF 1.25 MG/1 ML SDV IV SCH ×2 (12:54→18:52)
[2020-04-16] MEDS: CARVEDILOL 12.5 MG TABLET PO SCH ×2 (13:52→22:24)
--- NOTE | 2020-04-16 18:27 | PDOC CRITICAL CARE PROG REPORT ---
General Date:: 04/16/20 ICU Day:: 2 Hospital Day:: 2 Resuscitation Status: Full Code Events in the past 12 to 24 Hours:: This 64-year-old -[place] female was admitted on 04/15/2020 after experiencing a fall several days prior to presentation. She was concerned that she was failing to improve. No loss of consciousness. In the emergency department, head and neck evaluation was unrevealing; however, there was an incidental finding in the lower cuts of the neck imaging which raised concern for possible aortic abnormality. CTA of the chest revealed [place] type B dissection of an aortic aneurysm. She was admitted to the ICU on an esmolol drip. 04/16: This morning, the patient appears to have had a partial seizure (appears to involve facial muscles and predominantly the left side: saccadic eye movements, lipsmacking, rhythmic movement of the left upper extremity). She does have postictal, estefani-event amnesia. She remains on esmolol infusion. Reason for ICU Addmission:: [place] type B aortic dissection - Medications: Medications reviewed and adjusted accordingly: Yes Physical Exam Vital Signs: Temp Pulse Resp BP Pulse Ox 98.2 F 64 13 141/97 H 100 04/16/20 16:00 04/16/20 16:00 04/16/20 16:00 04/16/20 16:00 04/16/20 16:00 Intake & Output 04/15/20 04/16/20 04/17/20 06:59 06:59 06:59 Intake Total 939 374 Output Total 845 525 Balance 94 -151 Weight 45.9 kg Weight/Height Weight 45.9 kg Height 1.68 m General appearance: PRESENT: no acute distress, thin, well-developed, well- nourished, other - Perhaps marfanoid Head exam: PRESENT: atraumatic, normocephalic Eye exam: PRESENT: conjunctiva pink, EOMI, PERRLA. ABSENT: scleral icterus Mouth exam: PRESENT: moist, tongue midline Neck exam: PRESENT: thyromegaly, other - 2.5 cm round mass (correlates with 2.5 x 2.6 cm right parotid gland mass on neck CT) please note previously incorrectly documented as left I did.. ABSENT: carotid bruit, JVD, lymphadenopathy Respiratory exam: PRESENT: clear to auscultation [place]. ABSENT: rales, rhonchi, wheezes Cardiovascular exam: PRESENT: RRR. ABSENT: diastolic murmur, rubs, systolic murmur Pulses: PRESENT: normal dorsalis pedis pul GI/Abdominal exam: PRESENT: normal bowel sounds, soft. ABSENT: distended, gua rding, mass, organolmegaly, rebound, tenderness Extremities exam: PRESENT: calf tenderness Musculoskeletal exam: PRESENT: normal inspection. ABSENT: deformity Neurological exam: PRESENT: alert, awake, oriented to person, oriented to place, oriented to time, oriented to situation, CN II-XII grossly intact. ABSENT: motor sensory deficit Psychiatric exam: PRESENT: agitated Skin exam: PRESENT: dry, intact, warm. ABSENT: cyanosis, rash Tubes/Lines: PRESENT: Arterial Catheter - Right radial Laboratory/Radiographs Laboratory Results: 04/16/20 09:30 04/16/20 10:57 04/15/20 04/16/20 04/16/20 17:20 09:30 09:30 WBC 8.3 RBC 2.80 L Hgb 8.5 L D Hct 26.4 L MCV 94 MCH 30.3 MCHC 32.2 RDW 16.3 H Plt Count 264 Seg Neutrophils % 41.2 L Sodium Cancelled Potassium Cancelled Chloride Cancelled Carbon Dioxide Cancelled Anion Gap Cancelled BUN Cancelled Creatinine Cancelled Est GFR ( Amer) Cancelled Est GFR (Non-Af Amer) Cancelled Glucose Cancelled Calcium Cancelled Magnesium Cancelled Blood Type B POSITIVE Antibody Screen NEGATIVE 04/16/20 10:57 WBC RBC Hgb Hct MCV MCH MCHC RDW Plt Count Seg Neutrophils % Sodium 135.7 L Potassium 4.1 Chloride 103 Carbon Dioxide 25 Anion Gap 8 BUN 11 Creatinine 0.44 L Est GFR ( Amer) > 60 Est GFR (Non-Af Amer) Glucose 105 Calcium 8.6 Magnesium 1.8 Blood Type Antibody Screen 04/15/20 04/15/20 15:39 15:39 Creatine Kinase 90 CK-MB (CK-2) 0.72 Troponin I < 0.012 NT-Pro-B Natriuret Pep 494 H Impressions: Head CT 04/15/20 06:27 IMPRESSION: 1. No acute intracranial hemorrhage, mass, or evidence of acute territorial infarct. 2. Chronic encephalomalacia and gliosis in the right temporal lobe with right temporal craniectomy, stable from prior. EVIDENCE OF ACUTE STROKE: NO. Soft Tissue Neck CT 04/15/20 06:27 IMPRESSION: 1. At the posterior aspect of the aortic arch there appears to be a double lumen, possibly secondary to tortuosity, however this is a new appearance for the patient and there is also new surrounding soft tissue attenuation at the aortic arch, and dissection cannot be excluded. Further evaluation with CT angiography of the chest is recommended. 2. Heterogeneous mixed solid and cystic parotid gland lesion has increased sligh tly in size since previous examination 04/20/2018. Differential includes Warthin's tumor, pleomorphic adenoma, other soft tissue masses, given increase in size, ENT consultation is recommended. 3. Multiple bilateral thyroid nodules, not significantly changed since 2018. Chest/Abdomen CTA 04/15/20 09:15 IMPRESSION: [place] type B dissection. Maximum aortic diameter 5.4 x 5.0 cm. Dissection extends into the upper abdomen. Ankle X-Ray 04/15/20 12:40 IMPRESSION: NO RADIOGRAPHIC EVIDENCE OF ACUTE INJURY. Chest X-Ray 04/16/20 06:00 IMPRESSION: Tortuous aneurysmal descending thoracic aorta, increased in size from prior, possibly related to portable technique. Emphysematous change. 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 Add Vasotec. Will transition from esmolol infusion to p.o. carvedilol. (2) Accelerated hypertension Is this a current diagnosis for this admission?: Yes (3) Seizure Is this a current diagnosis for this admission?: Yes Plan: Increase Keppra to 500 mg IV 12 hours and Dilantin 100 mg IV every 12 hours. Initial seizure activity was controlled with Ativan 2 mg IV single dose. (4) Chronic obstructive pulmonary disease Qualifiers: COPD type: chronic bronchitis Is this a current diagnosis for this admission?: Yes Plan: DuoNeb. (5) Mass of right parotid gland Is this a current diagnosis for this admission?: No Plan: Patient reports that this has previously been biopsied. She reports that she was informed that no further work-up was required. I do not have records to confirm or contest this recommendation. (6) Multiple thyroid nodules Is this a current diagnosis for this admission?: No Plan: Patient reports that this has previously been biopsied. She reports that she was informed that no further work-up was required. I do not have records to confirm or contest this recommendation. Critical Time Critical Time (minutes): 90 Level of Care: ICU -: 1. The care of a critical patient is a dynamic process. This note is a public health representative synopsis but static in nature. The timeframe for treatments given in order is not necessarily the actual time these treatments may have been done. 2. This patient requires critical care secondary to ongoing requirements for therapy not offered or safe outside the critical care environment. Transfer to a lower level of care will result in altered life or limb morbidity and mortality. 3. Multidisciplinary rounds completed. 4. ABCDE bundle addressed.
[2020-04-16] MEDS: MAGNESIUM SULFATE/D5W 1 GM/100 ML RTUPB IV SCH ×2 (18:52→22:18)
[2020-04-16] MEDS ORDERED: MAGNESIUM SULFATE/D5W 1 GM/100 ML RTUPB IV ONE (21:59)
[2020-04-16] MEDS ORDERED: CARVEDILOL 12.5 MG TABLET PO SCH (22:00)
[2020-04-17] MEDS: ENALAPRILAT DIHYDRATE INJ/PF 1.25 MG/1 ML SDV IV SCH ×5 (00:36→23:35)
[2020-04-17] MEDS ORDERED: DOCUSATE SODIUM 100 MG CAPSULE PO SCH (03:00)
[2020-04-17 05:24] LABS: ANION GAP 5 (5-19); BLOOD UREA NITROGEN 14 mg/dL (7-20); CALCIUM 8.6 mg/dL (8.4-10.2); CARBON DIOXIDE 28 mmol/L (22-30); CHLORIDE 102 mmol/L (98-107); GLUCOSE 112 mg/dL (75-110); POTASSIUM 3.8 mmol/L (3.6-5.0)
[2020-04-17] MEDS: PANTOPRAZOLE SODIUM 40 MG TABLET.DR PO SCH (06:11)
[2020-04-17] MEDS: ACETAMINOPHEN 325 MG TABLET PO PRN (06:11)
[2020-04-17] MEDS: ESMOLOL 2500 MG/NS 250 ML IV PRN ×2 (06:18→23:35)
[2020-04-17 06:34] LABS: HEMATOCRIT 32.4 % (36.0-47.0); MEAN CORPUSCULAR HEMOGLOBIN 29.7 pg (27.0-33.4); MEAN CORPUSCULAR HGB CONC 32.8 g/dL (32.0-36.0); PLATELET COUNT 253 10^3/uL (150-450); RED BLOOD COUNT 3.58 10^6/uL (3.72-5.28); RED CELL DISTRIBUTION WIDTH 16.1 % (11.5-14.0); WHITE BLOOD COUNT 7.4 10^3/uL (4.0-10.5)
[2020-04-17 06:41] LABS: MEAN CORPUSCULAR VOLUME 91 fl (80-97)
[2020-04-17 06:42] LABS: HEMOGLOBIN 10.6 g/dL (12.0-15.5)
--- NOTE | 2020-04-17 07:59 | EKG REPORT ---
SEVERITY:- ABNORMAL ECG - SINUS RHYTHM LEFT ANTERIOR FASCICULAR BLOCK CONSIDER ANTEROSEPTAL INFARCT BORDERLINE T ABNORMALITIES, INFERIOR LEADS : Confirmed by: Anamaria Vance 17-Apr-2020 07:58:15
--- NOTE | 2020-04-17 08:33 | RADIOLOGY REPORT (SQ) ---
EXAM DESCRIPTION: CHEST SINGLE VIEW IMAGES COMPLETED DATE/TIME: 04/17/2020 6:50 am REASON FOR STUDY: type B aortic dissection COMPARISON: 04/16/2020. NUMBER OF VIEWS: One view. TECHNIQUE: Single frontal radiographic view of the chest acquired. LIMITATIONS: None. FINDINGS: LUNGS AND PLEURA: No opacities, masses or pneumothorax. No pleural effusion. Attenuated bl ood vessels and flattened rao-diaphragms. MEDIASTINUM AND HILAR STRUCTURES: No masses. Ectatic aorta. HEART AND VASCULAR STRUCTURES: Heart normal in size. Normal vasculature. BONES: No acute findings. HARDWARE: None in the chest. OTHER: No other significant finding. IMPRESSION: COPD. ECTATIC THORACIC AORTA. NO ACUTE RADIOGRAPHIC FINDING IN THE CHEST. TECHNICAL DOCUMENTATION: JOB ID: [id number] 2010 [employer]- All Rights Reserved Reading location - IP/workstation name: [email or web address]
[2020-04-17] MEDS: LEVETIRACETAM 500 MG/NACL-ISO 500 MG/100 ML RTUPB IV SCH ×2 (10:01→22:17)
[2020-04-17] MEDS: DOCUSATE SODIUM 100 MG/10 ML UDC PO SCH (10:02)
[2020-04-17] MEDS: PHENYTOIN SODIUM INJ/PF 100 MG/2 ML SDV IV SCH ×2 (10:02→22:17)
[2020-04-17] MEDS: CARVEDILOL 12.5 MG TABLET PO SCH ×2 (10:02→22:17)
[2020-04-17] MEDS ORDERED: ESMOLOL HCL INJ/PF 100 MG/10 ML SDV IV ONE (19:52)
--- NOTE | 2020-04-17 20:58 | PDOC CRITICAL CARE PROG REPORT ---
General Date:: 04/17/20 ICU Day:: 3 Hospital Day:: 3 Resuscitation Status: Full Code Events in the past 12 to 24 Hours:: This 64-year-old -[place] female was admitted on 04/15/2020 after experiencing a fall several days prior to presentation. She was concerned that she was failing to improve. No loss of consciousness. In the emergency department, head and neck evaluation was unrevealing; however, there was an incidental finding in the lower cuts of the neck imaging which raised concern for possible aortic abnormality. CTA of the chest revealed [place] type B dissection of an aortic aneurysm. She was admitted to the ICU on an esmolol drip. 04/16: This morning, the patient appears to have had a partial seizure (appears to involve facial muscles and predominantly the left side: saccadic eye movements, lipsmacking, rhythmic movement of the left upper extremity). She does have postictal, estefani-event amnesia. She remains on esmolol infusion. 04/17: Still on esmolol infusion, now at 50 mcg/kg/min. Also on Coreg 25 mg p.o. twice daily along with Vasotec 1.25 mg IV every 6 hours. No seizure activity in the interim. Today, it is clear that the patient is demonstrating short-term memory deficit along with confabulation and perseveration. She is repeating essentially the same interaction on a daily basis. In fact, she even repeats the same interaction multiple times during the same day, telling the same stories. Review of systems relevant to events:: Cardiovascular: [place] type B aortic dissection, accelerated hypertension Neuropsychiatric: Confabulation, perseveration, short-term memory deficit Reason for ICU Addmission:: [place] type B aortic dissection - Medications: Medications reviewed and adjusted accordingly: Yes Physical Exam Vital Signs: Temp Pulse Resp BP Pulse Ox 97.7 F 66 17 128/88 H 100 04/17/20 07:59 04/17/20 08:07 04/17/20 15:41 04/17/20 15:41 04/17/20 15:41 Intake & Output 04/16/20 04/17/20 04/18/20 06:59 06:59 06:59 Intake Total 341 217 6539 Output Total 845 1400 995 Balance 94 -462 525 Weight 45.9 kg 48.2 kg Weight/Height Weight 48.2 kg Height 1.68 m General appearance: PRESENT: no acute distress, thin, well-developed, well- nourished Head exam: PRESENT: atraumatic, normocephalic Eye exam: PRESENT: conjunctiva pink, EOMI, PERRLA. ABSENT: scleral icterus Mouth exam: PRESENT: moist, tongue midline Neck exam: ABSENT: carotid bruit, JVD, lymphadenopathy, thyromegaly Respiratory exam: PRESENT: clear to auscultation [place]. ABSENT: rales, rhonchi, wheezes Cardiovascular exam: PRESENT: RRR. ABSENT: diastolic murmur, rubs, systolic murmur Pulses: PRESENT: normal dorsalis pedis pul GI/Abdominal exam: PRESENT: normal bowel sounds, soft. ABSENT: distended, guarding, mass, organolmegaly, rebound, tenderness Extremities exam: PRESENT: full ROM. ABSENT: calf tenderness, clubbing, pedal edema Musculoskeletal exam: PRESENT: normal inspection, other - Perhaps marfanoid. ABSENT: deformity Neurological exam: PRESENT: alert, awake, oriented to person, oriented to place, oriented to time, reflexes normal, CN II-XII grossly intact. ABSENT: oriented to situation, motor sensory deficit Psychiatric exam: PRESENT: appropriate affect, normal mood. ABSENT: homicidal ideation, suicidal ideation Skin exam: PRESENT: dry, intact, warm. ABSENT: cyanosis, rash Laboratory/Radiographs Laboratory Results: 04/17/20 04:43 04/17/20 04:43 04/17/20 04/17/20 04:43 04:43 WBC 7.4 RBC 3.58 L Hgb 10.6 L D Hct 32.4 L MCV 91 MCH 29.7 MCHC 32.8 RDW 16.1 H Plt Count 253 Sodium 135.1 L Potassium 3.8 Chloride 102 Carbon Dioxide 28 Anion Gap 5 BUN 14 Creatinine 0.57 Est GFR ( Amer) > 60 Glucose 112 H Calcium 8.6 Magnesium 2.2 04/15/20 04/15/20 15:39 15:39 Creatine Kinase 90 CK-MB (CK-2) 0.72 Troponin I < 0.012 NT-Pro-B Natriuret Pep 494 H Impressions: Head CT 04/15/20 06:27 IMPRESSION: 1. No acute intracranial hemorrhage, mass, or evidence of acute territorial infarct. 2. Chronic encephalomalacia and gliosis in the right temporal lobe with right temporal craniectomy, stable from prior. EVIDENCE OF ACUTE STROKE: NO. Soft Tissue Neck CT 04/15/20 06:27 IMPRESSION: 1. At the posterior aspect of the aortic arch there appears to be a double lumen, possibly secondary to tortuosity, however this is a new appearance for the patient and there is also new surrounding soft tissue attenuation at the aortic arch, and dissection cannot be excluded. Further evaluation with CT angiography of the chest is recommended. 2. 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 Differential includes Warthin's tumor, pleomorphic adenoma, other soft tissue masses, given increase in size, ENT consultation is recommended. 3. Multiple bilateral thyroid nodules, not significantly changed since 2018. Chest/Abdomen CTA 04/15/20 09:15 IMPRESSION: [place] type B dissection. Maximum aortic diameter 5.4 x 5.0 cm. Dissection extends into the upper abdomen. Ankle X-Ray 04/15/20 12:40 IMPRESSION: NO RADIOGRAPHIC EVIDENCE OF ACUTE INJURY. Chest X-Ray 04/17/20 06:00 IMPRESSION: COPD. ECTATIC THORACIC AORTA. NO ACUTE RADIOGRAPHIC FINDING IN THE CHEST. 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 With the initiation of Coreg and scheduled Vasotec, it appears the patient is approaching discontinuation of esmolol infusion. (2) Accelerated hypertension Is this a current diagnosis for this admission?: Yes (3) Seizure Is this a current diagnosis for this admission?: Yes Plan: Continue Keppra 500 mg IV 12 hours and Dilantin 100 mg IV every 12 hours. Initial seizure activity was controlled with Ativan 2 mg IV single dose. There is a discrepancy between the patient's home medication list and what prescription records reveal. It is unclear at this time what her antiepileptic maintenance regimen has been at home. (4) Chronic obstructive pulmonary disease Qualifiers: COPD type: chronic bronchitis Is this a current diagnosis for this admission?: Yes (5) Mass of right parotid gland Is this a current diagnosis for this admission?: No Plan: Patient reports that this has previously been biopsied. She reports that she was informed that no further work-up was required. I do not have records to confirm or contest this recommendation. (6) Multiple thyroid nodules Is this a current diagnosis for this admission?: No Plan: Patient reports that this has previously been biopsied. She reports that she was informed that no further work-up was required. I do not have records to confirm or contest this recommendation. Critical Time Critical Time (minutes): 60 Level of Care: ICU -: 1. The care of a critical patient is a dynamic process. This note is a real estate representative synopsis but static in nature. The timeframe for treatments given in order is not necessarily the actual time these treatments may have been done. 2. This patient requires critical care secondary to ongoing requirements for therapy not offered or safe outside the critical care environment. Transfer to a lower level of care will result in altered life or limb morbidity and mortal ity. 3. Multidisciplinary rounds completed. 4. ABCDE bundle addressed.
[2020-04-17] MEDS: DOCUSATE SODIUM 100 MG CAPSULE PO SCH (21:14)
[2020-04-17] MEDS ORDERED: DOCUSATE SODIUM 100 MG CAPSULE PO ONE (23:00)
[2020-04-18] MEDS ORDERED: ZIPRASIDONE MESYLATE INJ/PF 20 MG SDV IM ONE (00:30)
[2020-04-18] MEDS: ENALAPRILAT DIHYDRATE INJ/PF 1.25 MG/1 ML SDV IV SCH (05:28)
[2020-04-18] MEDS: PANTOPRAZOLE SODIUM 40 MG TABLET.DR PO SCH (05:28)
[2020-04-18] MEDS: ESMOLOL 2500 MG/NS 250 ML IV PRN ×3 (08:00→21:02)
--- NOTE | 2020-04-18 08:30 | RADIOLOGY REPORT (SQ) ---
EXAM DESCRIPTION: CHEST SINGLE VIEW IMAGES COMPLETED DATE/TIME: 04/18/2020 6:25 am REASON FOR STUDY: type B aortic dissection COMPARISON: AP view of the chest from 04/17/2020. EXAM PARAMETERS: NUMBER OF VIEWS: One view. TECHNIQUE: An AP view of the chest was obtained. RADIATION DOSE: NA LIMITATIONS: None. FINDINGS: LUNGS AND PLEURA: Unchanged upper lobe predominant emphysema. There is no superimposed co nsolidation, sizeable pleural effusion or pneumothorax. MEDIASTINUM AND HILAR STRUCTURES: Unchanged ectasia/dilatation of the thoracic aorta. HEART AND VASCULAR STRUCTURES: Stable enlarged cardiac silhouette. BONES: No acute findings. HARDWARE: None in the chest. OTHER: No other finding. IMPRESSION: Unchanged COPD and ectasia/dilatation of the thoracic aorta. TECHNICAL DOCUMENTATION: JOB ID: [id number] 2010 [employer]- All Rights Reserved Reading location - IP/workstation name: [email or web address]
[2020-04-18] MEDS: CARVEDILOL 12.5 MG TABLET PO SCH ×2 (09:11→21:30)
[2020-04-18] MEDS: PHENYTOIN SODIUM INJ/PF 100 MG/2 ML SDV IV SCH ×2 (09:11→21:30)
[2020-04-18] MEDS: DOCUSATE SODIUM 100 MG CAPSULE PO SCH ×2 (09:11→18:25)
[2020-04-18] MEDS: LEVETIRACETAM 500 MG/NACL-ISO 500 MG/100 ML RTUPB IV SCH ×2 (10:46→21:30)
[2020-04-18] MEDS ORDERED: ENALAPRILAT DIHYDRATE INJ/PF 1.25 MG/1 ML SDV IV SCH (12:00)
[2020-04-18] MEDS: ACETAMINOPHEN 325 MG TABLET PO PRN ×2 (12:39→20:30)
--- NOTE | 2020-04-18 15:03 | EKG REPORT ---
SEVERITY:- ABNORMAL ECG - SINUS RHYTHM LEFT ANTERIOR FASCICULAR BLOCK BORDERLINE T ABNORMALITIES, DIFFUSE LEADS : Confirmed by: Paul Pina MD 18-Apr-2020 15:02:37
--- NOTE | 2020-04-18 20:50 | PDOC CRITICAL CARE PROG REPORT ---
General Date:: 04/18/20 ICU Day:: 4 Hospital Day:: 4 Resuscitation Status: Full Code Events in the past 12 to 24 Hours:: This 64-year-old -Sy[place] female was admitted on 04/15/2020 after experiencing a fall several days prior to presentation. She was concerned that she was failing to improve. No loss of consciousness. In the emergency department, head and neck evaluation was unrevealing; however, there was an incidental finding in the lower cuts of the neck imaging which raised concern for possible aortic abnormality. CTA of the chest revealed [place] type B dissection of an aortic aneurysm. She was admitted to the ICU on an esmolol drip. 04/16: This morning, the patient appears to have had a partial seizure (appears to involve facial muscles and predominantly the left side: saccadic eye movements, lipsmacking, rhythmic movement of the left upper extremity). She does have postictal, estefani-event amnesia. She remains on esmolol infusion. 04/17: Still on esmolol infusion, now at 50 mcg/kg/min. Also on Coreg 25 mg p.o. twice daily along with Vasotec 1.25 mg IV every 6 hours. No seizure activity in the interim. Today, it is clear that the patient is demonstrating short-term memory deficit along with confabulation and perseveration. She is repeating essentially the same interaction on a daily basis. In fact, she even repeats the same interaction multiple times during the same day, telling the same stories. 04/18: at the bedside today. Updated. He confirms that the patient's waxing and waning mental status is consistent with her baseline. Still on esmolol at 150 mcg/kg/min. On Coreg 25 mg p.o. twice daily. Heart rate in the 70s. Review of systems relevant to events:: Cardiovascular: [place] type B aortic dissection, accelerated hypertension Neuropsychiatric: Confabulation, perseveration, short-term memory deficit Reason for ICU Addmission:: [place] type B aortic dissection - Medications: Medications reviewed and adjusted accordingly: Yes Physical Exam Vital Signs: Temp Pulse Resp BP Pulse Ox 98.6 F 72 14 129/82 H 99 04/18/20 04:00 04/18/20 12:40 04/18/20 16:42 04/18/20 16:42 04/18/20 16:41 Intake & Output 04/17/20 04/18/20 04/19/20 06:59 06:59 06:59 Intake Total 938 2629 587 Output Total 4910 2740 505 Balance -462 -111 82 Weight 48.2 kg 48.8 kg Weight/Height Weight 48.8 kg Height 1.68 m General appearance: PRESENT: no acute distress, well-developed, well-nourished Head exam: PRESENT: atraumatic, normocephalic Eye exam: PRESENT: conjunctiva pink, EOMI, PERRLA. ABSENT: scleral icterus Mouth exam: PRESENT: moist, tongue midline Neck exam: ABSENT: carotid bruit, JVD, lymphadenopathy, thyromegaly Respiratory exam: PRESENT: clear to auscultation [place]. ABSENT: rales, rhonchi, wheezes Cardiovascular exam: PRESENT: RRR. ABSENT: diastolic murmur, rubs, systolic murmur GI/Abdominal exam: PRESENT: normal bowel sounds, soft. ABSENT: distended, guarding, mass, organolmegaly, rebound, tenderness Extremities exam: PRESENT: full ROM. ABSENT: calf tenderness, clubbing, pedal edema Musculoskeletal exam: PRESENT: normal inspection. ABSENT: deformity Neurological exam: PRESENT: alert, awake, oriented to person, oriented to place, oriented to time, oriented to situation, CN II-XII grossly intact. ABSENT: motor sensory deficit Psychiatric exam: ABSENT: agitated, anxious Skin exam: PRESENT: dry, intact, warm. ABSENT: cyanosis, rash Laboratory/Radiographs Laboratory Results: 04/17/20 04:43 04/17/20 04:43 04/15/20 04/15/20 15:39 15:39 Creatine Kinase 90 CK-MB (CK-2) 0.72 Troponin I < 0.012 NT-Pro-B Natriuret Pep 494 H Impressions: Head CT 04/15/20 06:27 IMPRESSION: 1. No acute intracranial hemorrhage, mass, or evidence of acute territorial infarct. 2. Chronic encephalomalacia and gliosis in the right temporal lobe with right temporal craniectomy, stable from prior. EVIDENCE OF ACUTE STROKE: NO. Soft Tissue Neck CT 04/15/20 06:27 IMPRESSION: 1. At the posterior aspect of the aortic arch there appears to be a double lumen, possibly secondary to tortuosity, however this is a new appearance for the patient and there is also new surrounding soft tissue attenuation at the aortic arch, and dissection cannot be excluded. Further evaluation with CT angiography of the chest is recommended. 2. 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 Differential includes Warthin's tumor, pleomorphic adenoma, other soft tissue masses, given increase in size, ENT consultation is recommended. 3. Multiple bilateral thyroid nodules, not significantly changed since 2018. Chest/Abdomen CTA 04/15/20 09:15 IMPRESSION: [place] type B dissection. Maximum aortic diameter 5.4 x 5.0 cm. Dissection extends into the upper abdomen. Ankle X-Ray 04/15/20 12:40 IMPRESSION: NO RADIOGRAPHIC EVIDENCE OF ACUTE INJURY. Chest X-Ray 04/18/20 06:00 IMPRESSION: Unchanged COPD and ectasia/dilatation of the thoracic aorta. 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 Still needing esmolol infusion. * Continue Coreg 25 mg p.o. twice daily. May need to consider increasing to 50 mg p.o. twice daily. * Will add lisinopril 40 mg p.o. daily. Stop Vasotec. * The patient is in agreement that once hemodynamic optimization has been achieved, the patient should be transferred to a higher level of care where definitive treatment of her dissecting aneurysm may be provided. (2) Accelerated hypertension Is this a current diagnosis for this admission?: Yes (3) Seizure Is this a current diagnosis for this admission?: Yes (4) Chronic obstructive pulmonary disease Qualifiers: COPD type: chronic bronchitis Is this a current diagnosis for this admission?: Yes (5) Mass of right parotid gland Is this a current diagnosis for this admission?: No Plan: Patient reports that this has previously been biopsied. She reports that she was informed that no further work-up was required. I do not have records to confirm or contest this recommendation. However, the does corroborate this history. (6) Multiple thyroid nodules Is this a current diagnosis for this admission?: No Plan: Patient reports that this has previously been biopsied. She reports that she was informed that no further work-up was required. I do not have records to confirm or contest this recommendation. However, the patient does corroborate this history. Critical Time Critical Time (minutes): 60 Level of Care: ICU -: 1. The care of a critical patient is a dynamic process. This note is a printing sales representative synopsis but static in nature. The timeframe for treatments given in order is not necessarily the actual time these treatments may have been done. 2. This patient requires critical care secondary to ongoing requirements for therapy not offered or safe outside the critical care environment. Transfer to a lower level of care will result in altered life or limb morbidity and mortality. 3. Multidisciplinary rounds completed. 4. ABCDE bundle addressed.
[2020-04-18] MEDS ORDERED: DILTIAZEM HCL 60 MG TABLET PO ONE (23:10)
[2020-04-19] MEDS: ESMOLOL 2500 MG/NS 250 ML IV PRN (02:34)
[2020-04-19 04:50] LABS: ALBUMIN 3.4 g/dL (3.5-5.0); ALKALINE PHOSPHATASE 102 U/L (38-126); ASPARTATE AMINO TRANSFERASE 25 U/L (14-36); BILIRUBIN,TOTAL 0.3 mg/dL (0.2-1.3); BLOOD UREA NITROGEN 12 mg/dL (7-20); CALCIUM 8.4 mg/dL (8.4-10.2); CHLORIDE 104 mmol/L (98-107); GLUCOSE 107 mg/dL (75-110); POTASSIUM 3.9 mmol/L (3.6-5.0); TOTAL PROTEIN 7.3 g/dL (6.3-8.2)
[2020-04-19 04:55] LABS: ANION GAP 6 (5-19); CARBON DIOXIDE 27 mmol/L (22-30)
[2020-04-19] MEDS: PANTOPRAZOLE SODIUM 40 MG TABLET.DR PO SCH (05:22)
[2020-04-19] MEDS ORDERED: DILTIAZEM HCL 30 MG TABLET PO SCH (06:00)
[2020-04-19] MEDS: LISINOPRIL 10 MG TABLET PO SCH (09:08)
[2020-04-19] MEDS: LEVETIRACETAM 500 MG/NACL-ISO 500 MG/100 ML RTUPB IV SCH ×2 (09:09→21:13)
[2020-04-19] MEDS: PHENYTOIN SODIUM INJ/PF 100 MG/2 ML SDV IV SCH ×2 (09:09→21:12)
[2020-04-19] MEDS: CARVEDILOL 12.5 MG TABLET PO SCH ×2 (09:09→21:13)
[2020-04-19] MEDS: DOCUSATE SODIUM 100 MG CAPSULE PO SCH ×2 (09:09→17:05)
[2020-04-19] MEDS: ACETAMINOPHEN 325 MG TABLET PO PRN ×2 (09:12→19:51)
[2020-04-19] MEDS ORDERED: DILTIAZEM HCL 30 MG TABLET PO ONE (10:15)
[2020-04-19] MEDS: DILTIAZEM HCL 60 MG TABLET PO SCH ×2 (11:33→17:05)
--- NOTE | 2020-04-19 17:53 | PDOC CRITICAL CARE PROG REPORT ---
General Date:: 04/19/20 ICU Day:: 5 Hospital Day:: 5 Resuscitation Status: Full Code Events in the past 12 to 24 Hours:: This 64-year-old -Greek female was admitted on 04/15/2020 after experiencing a fall several days prior to presentation. She was concerned that she was failing to improve. No loss of consciousness. In the emergency department, head and neck evaluation was unrevealing; however, there was an incidental finding in the lower cuts of the neck imaging which raised concern for possible aortic abnormality. CTA of the chest revealed [place] type B dissection of an aortic aneurysm. She was admitted to the ICU on an esmolol drip. 04/16: This morning, the patient appears to have had a partial seizure (appears to involve facial muscles and predominantly the left side: saccadic eye movements, lipsmacking, rhythmic movement of the left upper extremity). She does have postictal, estefani-event amnesia. She remains on esmolol infusion. 04/17: Still on esmolol infusion, now at 50 mcg/kg/min. Also on Coreg 25 mg p.o. twice daily along with Vasotec 1.25 mg IV every 6 hours. No seizure activity in the interim. Today, it is clear that the patient is demonstrating short-term memory deficit along with confabulation and perseveration. She is repeating essentially the same interaction on a daily basis. In fact, she even repeats the same interaction multiple times during the same day, telling the same stories. 04/18: at the bedside today. Updated. He confirms that the patient's waxing and waning mental status is consistent with her baseline. Still on esmolol at 150 mcg/kg/min. On Coreg 25 mg p.o. twice daily. Heart rate in the 70s. 04/19: Currently off esmolol infusion. On Coreg 25 mg p.o. twice daily, lisinopril 40 mg p.o. daily. Cardizem was increased from 30 to 60 mg p.o. in the interim, in hopes of being able to stay off esmolol infusion. Mentating well. Heart rate in the 60s. No subsequent seizure activity since 04/16/2020. Review of systems relevant to events:: Cardiovascular: [place] type B aortic dissection, accelerated hypertension Neuropsychiatric: Confabulation, perseveration, short-term memory deficit Reason for ICU Addmission:: [place] type B aortic dissection - Medications: Medications reviewed and adjusted accordingly: Yes Physical Exam Vital Signs: Temp Pulse Resp BP Pulse Ox 98.6 F 72 18 129/84 H 99 04/19/20 12:00 04/19/20 12:00 04/19/20 12:00 04/19/20 12:00 04/19/20 12:00 Intake & Output 04/18/20 04/19/20 04/20/20 06:59 06:59 06:59 Intake Total 2629 1452 540 Output Total 2740 1701 775 Balance -111 -253 -334 Weight 48.8 kg 51.3 kg Weight/Height Weight 51.3 kg Height 1.68 m General appearance: PRESENT: no acute distress, well-developed, well-nourished Head exam: PRESENT: atraumatic, normocephalic Eye exam: PRESENT: conjunctiva pink, EOMI, PERRLA. ABSENT: scleral icterus Mouth exam: PRESENT: moist, tongue midline, other - Right parotid mass, stable Neck exam: PRESENT: other - Multinodular thyroid (chronic). ABSENT: carotid bruit, JVD, lymphadenopathy, thyromegaly Respiratory exam: PRESENT: clear to auscultation charm[place]. ABSENT: rales, rhonchi, wheezes Cardiovascular exam: PRESENT: RRR. ABSENT: diastolic murmur, rubs, systolic murmur Pulses: PRESENT: normal dorsalis pedis pul GI/Abdominal exam: PRESENT: normal bowel sounds, soft. ABSENT: distended, guarding, mass, organolmegaly, rebound, tenderness Extremities exam: PRESENT: full ROM. ABSENT: calf tenderness, clubbing, pedal edema Musculoskeletal exam: PRESENT: normal inspection. ABSENT: deformity Neurological exam: PRESENT: alert, awake, oriented to person, oriented to place, oriented to time, CN II-XII grossly intact. ABSENT: motor sensory deficit Psychiatric exam: ABSENT: agitated, anxious Skin exam: PRESENT: dry, intact, warm. ABSENT: cyanosis, rash Laboratory/Radiographs Laboratory Results: 04/17/20 04:43 04/19/20 04:16 04/19/20 04/19/20 04:16 04:16 Sodium 137.2 Potassium 3.9 Chloride 104 Carbon Dioxide 27 Anion Gap 6 BUN 12 Creatinine 0.54 Est GFR ( Amer) > 60 Glucose 107 Lactic Acid 1.0 Calcium 8.4 Magnesium 2.0 Total Bilirubin 0.3 AST 25 Alkaline Phosphatase 102 Total Protein 7.3 Albumin 3.4 L 04/15/20 04/15/20 15:39 15:39 Creatine Kinase 90 CK-MB (CK-2) 0.72 Troponin I < 0.012 NT-Pro-B Natriuret Pep 494 H Impressions: Head CT 04/15/20 06:27 IMPRESSION: 1. No acute intracranial hemorrhage, mass, or evidence of acute territorial infarct. 2. Chronic encephalomalacia and gliosis in the right temporal lobe with right temporal craniectomy, stable from prior. EVIDENCE OF ACUTE STROKE: NO. Soft Tissue Neck CT 04/15/20 06:27 IMPRESSION: 1. At the posterior aspect of the aortic arch there appears to be a double lumen, possibly secondary to tortuosity, however this is a new appearance for the patient and there is also new surrounding soft tissue attenuation at the aortic arch, and dissection cannot be excluded. Further evaluation with CT angiography of the chest is recommended. 2. 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 Differential includes Warthin's tumor, pleomorphic adenoma, other soft tissue masses, given increase in size, ENT consultation is recommended. 3. Multiple bilateral thyroid nodules, not significantly changed since 2018. Chest/Abdomen CTA 04/15/20 09:15 IMPRESSION: [place] type B dissection. Maximum aortic diameter 5.4 x 5.0 cm. Dissection extends into the upper abdomen. Ankle X-Ray 04/15/20 12:40 IMPRESSION: NO RADIOGRAPHIC EVIDENCE OF ACUTE INJURY. Chest X-Ray 04/18/20 06:00 IMPRESSION: Unchanged COPD and ectasia/dilatation of the thoracic aorta. 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 * Continue Coreg 25 mg p.o. twice daily, lisinopril 40 mg p.o. daily, diltiazem 60 mg p.o. every 6 hours. * The patient and her are in agreement that once hemodynamic optimization has been achieved, the patient should be transferred to a higher level of care where definitive treatment of her dissecting aneurysm may be provided. (2) Accelerated hypertension Is this a current diagnosis for this admission?: Yes (3) Seizure Is this a current diagnosis for this admission?: Yes Plan: Continue Keppra 500 mg IV 12 hours and Dilantin 100 mg IV every 12 hours. Initial seizure activity was controlled with Ativan 2 mg IV single dose. (4) Chronic obstructive pulmonary disease Qualifiers: COPD type: chronic bronchitis Is this a current diagnosis for this admission?: Yes Plan: Apparently does not need COPD maintenance therapy at home. (5) Mass of right parotid gland Is this a current diagnosis for this admission?: No (6) Multiple thyroid nodules Is this a current diagnosis for this admission?: No Critical Time Critical Time (minutes): 60 Level of Care: ICU -: 1. The care of a critical patient is a dynamic process. This note is a in store representative synopsis but static in nature. The timeframe for treatments given in order is not necessarily the actual time these treatments may have been done. 2. This patient requires critical care secondary to ongoing requirements for therapy not offered or safe outside the critical care environment. Transfer to a lower level of care will result in altered life or limb morbidity and mortality. 3. Multidisciplinary rounds completed. 4. ABCDE bundle addressed.
[2020-04-20] MEDS: ESMOLOL 2500 MG/NS 250 ML IV PRN ×3 (00:03→16:18)
[2020-04-20 04:29] LABS: ANION GAP 6 (5-19); BLOOD UREA NITROGEN 16 mg/dL (7-20); CALCIUM 8.4 mg/dL (8.4-10.2); CARBON DIOXIDE 26 mmol/L (22-30); CHLORIDE 104 mmol/L (98-107); GLUCOSE 110 mg/dL (75-110); POTASSIUM 4.1 mmol/L (3.6-5.0)
[2020-04-20] MEDS: DILTIAZEM HCL 60 MG TABLET PO SCH ×4 (05:45→17:58)
[2020-04-20] MEDS: PANTOPRAZOLE SODIUM 40 MG TABLET.DR PO SCH (05:45)
[2020-04-20] MEDS ORDERED: CLONIDINE HCL 0.1 MG TABLET PO SCH (10:15)
[2020-04-20] MEDS: PHENYTOIN SODIUM INJ/PF 100 MG/2 ML SDV IV SCH (10:16)
[2020-04-20] MEDS: LISINOPRIL 10 MG TABLET PO SCH (10:17)
[2020-04-20] MEDS: DOCUSATE SODIUM 100 MG CAPSULE PO SCH ×2 (10:17→17:58)
[2020-04-20] MEDS: CARVEDILOL 12.5 MG TABLET PO SCH ×2 (10:17→21:40)
[2020-04-20] MEDS: LEVETIRACETAM 500 MG/NACL-ISO 500 MG/100 ML RTUPB IV SCH (10:18)
--- NOTE | 2020-04-20 13:14 | RADIOLOGY REPORT (SQ) ---
EXAM DESCRIPTION: CAROTID DOPPLER IMAGES COMPLETED DATE/TIME: 04/20/2020 1:04 pm REASON FOR STUDY: neck pain; aortic dissection COMPARISON: None. TECHNIQUE: Grayscale ultrasound, Doppler velocity and spectra, and color Doppler images acquired of the extra-cranial carotid and vertebral arteries. Images stored on PACS. LIMITATIONS: None. FINDINGS: RIGHT CAROTID CCA Velocities: Within normal limits. ICA Velocities Peak systolic 0.85 m/s. End diastolic 0.39 m/s. Proximal ICA/CCA peak systolic ratio 1.17. Spectra normal. No significant plaque. LEFT CAROTID CCA Velocities: Within normal limits. ICA Velocities Peak systolic 0.52 m/s. End diastolic 0.25 m/s. Proximal ICA/CCA peak systolic ratio 1.03. Spectra normal. No significant plaque. VERTEBRAL ARTERIES: Antegrade flow. Normal waveforms. SUBCLAVIAN ARTERIES: No finding. OTHER: Incidental note is made of bilateral thyroid nodules. Correlation with thyroid ultrasound is recommended if clinically indicated. IMPRESSION: NO HEMODYNAMICALLY SIGNIFICANT STENOSIS. COMMENT: Quality ID #195: Velocity criteria are extrapolated from the diameter data as defined by t he Society of Radiologists in Ultrasound Consensus Conference. Radiology 2003: 229; 340-346. TECHNICAL DOCUMENTATION: JOB ID: [id number] 2010 [employer]- All Rights Reserved Reading location - IP/workstation name: [email or web address]
--- NOTE | 2020-04-20 13:26 | RADIOLOGY REPORT (SQ) ---
EXAM DESCRIPTION: ARTERIAL LOWER EXTREM BILAT IMAGES COMPLETED DATE/TIME: 04/20/2020 1:04 pm REASON FOR STUDY: R leg pain; aortic dissection COMPARISON: None. TECHNIQUE: Dynamic and static wilkinson scale and color images acquired of the lower extremity arteries. Additional selected spectral images recorded. LIMITATIONS: None. FINDINGS: RIGHT LEG: INFLOW ARTERIES: Normal, no obstruction evident. FEMORAL ARTERIES:Multiphasic waveforms. Normal, no velocity elevation to suggest focal stenosis. Norm al color Doppler evaluation. No aneurysm. POPLITEAL ARTERY:Multiphasic waveforms. Normal, no velocity elevation to suggest focal stenosis. Norm al color Doppler evaluation. No aneurysm. PATENT TIBIOPERONEAL TRUNK AND 3 VESSEL RUNOFF: Tibioperoneal trunk is not demonstrated. There is mu ltiphasic infrapopliteal three-vessel runoff. OTHER: No other significant finding. LEFT LEG: INFLOW ARTERIES: Normal, no obstruction evident. FEMORAL ARTERIES:Multiphasic waveforms. Normal, no velocity elevation to suggest focal stenosis. Norm al color Doppler evaluation. No aneurysm. POPL[place]AL ARTERY:Multiphasic waveforms. Normal, no velocity elevation to suggest focal stenosis. Norm al color Doppler evaluation. No aneurysm. PATENT TIBIOPERONEAL TRUNK AND 3 VESSEL RUNOFF: The tibioperoneal trunk was not imaged. There is 3 v essel multiphasic infrapopliteal runoff. OTHER: No other significant finding. IMPRESSION: NORMAL BILATERAL LOWER EXTREMITY ARTERIAL DOPPLER. TECHNICAL DOCUMENTATION: JOB ID: [id number] 2010 [employer]- All Rights Reserved Reading location - IP/workstation name: [email or web address]
--- NOTE | 2020-04-20 15:25 | XCELERA REPORT ---
[address] [address] Transthoracic Echocardiogram Report Name: MARA SPEARS Age: 64 yrs Gender: Female : 1955 Patient Status: Inpatient Patient Location: ICU^611^A Study Date: 04/20/2020 11:12 AM Height: 66 in Weight: 116 lb BSA: 1.6 m2 Procedure: A two-dimensional transthoracic echocardiogram with color flow and Doppler was performed in limited views only. Study Quality: Good. Reason For Study: Type B Aortic disection Ordering Physician: WILLY JACOBSON Performed By: Silvia Ricci Interpretation Summary The aortic root is normal.No disection seen.Trace AR. Possible non flow lilmiting disection in the abdomminal arota.No Thrombus seen. The aortic root is normal.No disection seen.Trace AR. Possible non flow lilmiting disection in the abdomminal arota.No Thrombus seen. : WILLY JACOBSON Lakshmi
--- NOTE | 2020-04-20 15:55 | RADIOLOGY REPORT (SQ) ---
EXAM DESCRIPTION: PICC INSERTION IMAGES COMPLETED DATE/TIME: 04/20/2020 3:44 pm REASON FOR STUDY: medication infusion COMPARISON: None. FLUOROSCOPY TIME: None. 2 images saved to PACS. TECHNIQUE: Fluoroscopic and ultrasound guided PICC placement. LIMITATIONS: None. PROCEDURE: After written consent and assessment were obtained, the patient was brought into the fluo roscopy room and placed supine on the table. Ultrasound evaluation of potential access sites were per formed. After successfully identifying a patent left basilic vein, the left arm was prepped and drape d in a sterile fashion along with the ultrasound probe. The entry site was anesthetized with 1% lidoc frank. A 21 gauge 7 cm needle was advanced through the skin and into the basilic vein under live ultra sound guidance. An ultrasound image was saved to PACS confirming access site. A .018 guide wire was then inserted through the needle and into the venous system. The needle was then removed and an 11 b lade scalpel was used to make a 1cm skin incision. A 5 fr peel-away sheath was advanced over the wir e and into the venous system. A measurement was then made using the existing wire and live fluoroscop ic guidance. The wire was then removed and trimmed. The PICC was advanced through the peel-away sheat h and into the venous system. The peel-away sheath was removed and the catheter was adhered to the pa tients arm with a stat lock. The catheter was then aspirated and flushed and a sterile bandage was pl aced over the access site. A fluoroscopic spot image was saved to PACS confirming the catheter tip w ithin the distal SVC. IMPRESSION: SUCCESSFUL PLACEMENT OF A 5 FR DUAL LUMEN 40 CM PICC IN THE LEFT BASILIC VEIN. COMMENT: Patient medication list reviewed: Yes- Quality ID# 130:Eligible professional attests to doc umenting in the medical record they obtained, updated, or reviewed the patient's current medications. . Quality ID 145: Final reports for procedures using fluoroscopy that document radiation exposure kodi jose luis, or exposure time and number of fluorographic images (if radiation exposure indices are not avail able) Quality ID #76: The patient was prepped and draped using maximum sterile barrier technique including cap, mask, sterile gown, sterile gloves, a large sterile sheet, hand hygiene, and 2% Chlorhexidine fo r cutaneous antisepsis. When ultrasound is used, sterile ultrasound techniques are followed requiring sterile gel and sterile probes. TECHNICAL DOCUMENTATION: JOB ID: [id number] 2010 [employer]- All Rights Reserved rev-01/22 Reading location - IP/workstation name: [email or web address]
[2020-04-20] MEDS ORDERED: NORMAL SALINE 10 ML SDV (AFTER EACH USE) IV PRN (16:00)
[2020-04-20] MEDS: LEVETIRACETAM XR 500 MG TAB.SR.24H PO SCH (16:18)
[2020-04-20] MEDS: CLONIDINE HCL 0.1 MG TABLET PO SCH (17:58)
--- NOTE | 2020-04-20 18:50 | PDOC CRITICAL CARE PROG REPORT ---
General Date:: 04/20/20 ICU Day:: 6 Hospital Day:: 6 Resuscitation Status: Full Code Events in the past 12 to 24 Hours:: This 64-year-old -[place] female was admitted on 04/15/2020 after experiencing a fall several days prior to presentation. She was concerned that she was failing to improve. No loss of consciousness. In the emergency department, head and neck evaluation was unrevealing; however, there was an incidental finding in the lower cuts of the neck imaging which raised concern for possible aortic abnormality. 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 She was admitted to the ICU on an esmolol drip. 04/16: This morning, the patient appears to have had a partial seizure (appears to involve facial muscles and predominantly the left side: saccadic eye movements, lipsmacking, rhythmic movement of the left upper extremity). She does have postictal, estefani-event amnesia. She remains on esmolol infusion. 04/17: Still on esmolol infusion, now at 50 mcg/kg/min. Also on Coreg 25 mg p.o. twice daily along with Vasotec 1.25 mg IV every 6 hours. No seizure activity in the interim. Today, it is clear that the patient is demonstrating short-term memory deficit along with confabulation and perseveration. She is repeating essentially the same interaction on a daily basis. In fact, she even repeats the same interaction multiple times during the same day, telling the same stories. 04/18: at the bedside today. Updated. He confirms that the patient's waxing and waning mental status is consistent with her baseline. Still on esmolol at 150 mcg/kg/min. On Coreg 25 mg p.o. twice daily. Heart rate in the 70s. 04/19: Currently off esmolol infusion. On Coreg 25 mg p.o. twice daily, lisinopril 40 mg p.o. daily. Cardizem was increased from 30 to 60 mg p.o. in the interim, in hopes of being able to stay off esmolol infusion. Mentating well. Heart rate in the 60s. No subsequent seizure activity since 04/16/2020. 04/20: Has again had to restart esmolol infusion. On Coreg 50 mg p.o. twice daily, lisinopril 40 mg p.o. daily, Cardizem 60 mg p.o. every 6 hours. Also started clonidine 0.1 mg p.o. every 8 hours in the interim. Today, the patient complained of right-sided leg pain and pain shooting up the right side of her neck. Stat 2D echo to investigate the aortic root and stat carotid Dopplers and lower extremity arterial Dopplers were ordered. No evidence of dissection was detected. The patient has remained hemodynamically stable. No chest pain. No visual changes. No renal failure. Review of systems relevant to events:: Cardiovascular: [place] type B aortic dissection, accelerated hypertension Neuropsychiatric: Confabulation, perseveration, short-term memory deficit Reason for ICU Addmission:: Thai type B aortic dissection - Medications: Medications reviewed and adjusted accordingly: Yes Physical Exam Vital Signs: Temp Pulse Resp BP Pulse Ox 99.3 F 64 11 L 128/83 H 99 04/20/20 12:00 04/20/20 10:00 04/20/20 14:20 04/20/20 14:20 04/20/20 14:20 Intake & Output 04/19/20 04/20/20 04/21/20 06:59 06:59 06:59 Intake Total 1452 1684 500 Output Total 1705 2050 495 Balance -253 -366 5 Weight 51.3 kg 52.8 kg Weight/Height Weight 52.8 kg Height 1.68 m General appearance: PRESENT: no acute distress, well-developed, well-nourished Head exam: PRESENT: atraumatic, normocephalic Eye exam: PRESENT: conjunctiva pink, EOMI, PERRLA. ABSENT: scleral icterus Mouth exam: PRESENT: moist, tongue midline Neck exam: ABSENT: carotid bruit, JVD, lymphadenopathy, thyromegaly Respiratory exam: PRESENT: clear to auscultation charmaine. ABSENT: rales, rhonchi, wheezes Cardiovascular exam: PRESENT: RRR. ABSENT: diastolic murmur, rubs, systolic murmur GI/Abdominal exam: PRESENT: normal bowel sounds, soft. ABSENT: distended, guarding, mass, organolmegaly, rebound, tenderness Rectal exam: PRESENT: deferred Extremities exam: PRESENT: full ROM, tenderness - Right lower extremity. ABSENT: calf tenderness, clubbing, pedal edema Neurological exam: PRESENT: alert, awake, oriented to person, oriented to place, CN II-XII grossly intact. ABSENT: motor sensory deficit Psychiatric exam: PRESENT: anxious, appropriate affect. ABSENT: agitated Skin exam: PRESENT: dry, intact, warm. ABSENT: cyanosis, rash Laboratory/Radiographs Laboratory Results: 04/17/20 04:43 04/20/20 03:54 04/20/20 03:54 Sodium 135.6 L Potassium 4.1 Chloride 104 Carbon Dioxide 26 Anion Gap 6 BUN 16 Creatinine 0.49 L Est GFR ( Amer) > 60 Glucose 110 Calcium 8.4 Magnesium 1.7 04/15/20 04/15/20 15:39 15:39 Creatine Kinase 90 CK-MB (CK-2) 0.72 Troponin I < 0.012 NT-Pro-B Natriuret Pep 494 H Impressions: Head CT 04/15/20 06:27 IMPRESSION: 1. No acute intracranial hemorrhage, mass, or evidence of acute territorial infarct. 2. Chronic encephalomalacia and gliosis in the right temporal lobe with right temporal craniectomy, stable from prior. EVIDENCE OF ACUTE STROKE: NO. Soft Tissue Neck CT 04/15/20 06:27 IMPRESSION: 1. At the posterior aspect of the aortic arch there appears to be a double lumen, possibly secondary to tortuosity, however this is a new appearance for the patient and there is also new surrounding soft tissue attenuation at the aortic arch, and dissection cannot be excluded. Further evaluation with CT angiography of the chest is recommended. 2. 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 Differential includes Warthin's tumor, pleomorphic adenoma, other soft tissue masses, given increase in size, ENT consultation is recommended. 3. Multiple bilateral thyroid nodules, not significantly changed since 2018. Chest/Abdomen CTA 04/15/20 09:15 IMPRESSION: Thai type B dissection. Maximum aortic diameter 5.4 x 5.0 cm. Dissection extends into the upper abdomen. Ankle X-Ray 04/15/20 12:40 IMPRESSION: NO RADIOGRAPHIC EVIDENCE OF ACUTE INJURY. Chest X-Ray 04/18/20 06:00 IMPRESSION: Unchanged COPD and ectasia/dilatation of the thoracic aorta. Carotid Doppler Study 04/20/20 00:00 IMPRESSION: NO HEMODYNAMICALLY SIGNIFICANT STENOSIS. Lower Extremity Ultrasound 04/20/20 00:00 IMPRESSION: NORMAL BILATERAL LOWER EXTREMITY ARTERIAL DOPPLER. 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 * We will request PICC line insertion light of prolonged esmolol infusion. * Continue Coreg 50 mg p.o. twice daily, lisinopril 40 mg p.o. daily, diltiazem 60 mg p.o. every 6 hours. Restarting clonidine (home medication). * The patient and her are in agreement that once hemodynamic optimization has been achieved, the patient should be transferred to a higher level of care where definitive treatment of her dissecting aneurysm may be provided. (2) Accelerated hypertension Is this a current diagnosis for this admission?: Yes (3) Seizure Is this a current diagnosis for this admission?: Yes Plan: Change Keppra and Dilantin to previous home doses. Initial seizure activity was controlled with Ativan 2 mg IV single dose. (4) Chronic obstructive pulmonary disease Qualifiers: COPD type: chronic bronchitis Is this a current diagnosis for this admission?: Yes (5) Mass of right parotid gland Is this a current diagnosis for this admission?: No (6) Multiple thyroid nodules Is this a current diagnosis for this admission?: No Critical Time Critical Time (minutes): 60 Level of Care: ICU -: 1. The care of a critical patient is a dynamic process. This note is a healthcare sales representative synopsis but static in nature. The timeframe for treatments given in order is not necessarily the actual time these treatments may have been done. 2. This patient requires critical care secondary to ongoing requirements for therapy not offered or safe outside the critical care environment. Transfer to a lower level of care will result in altered life or limb morbidity and mortality. 3. Multidisciplinary rounds completed. 4. ABCDE bundle addressed.
[2020-04-20] MEDS: PHENYTOIN SODIUM EXTENDED 100 MG CAPSULE PO SCH (21:39)
[2020-04-20] MEDS: NORMAL SALINE 10 ML SDV (SCHEDULED) IV SCH (21:41)
[2020-04-21] MEDS: DILTIAZEM HCL 60 MG TABLET PO SCH ×5 (00:34→23:39)
[2020-04-21] MEDS: CLONIDINE HCL 0.1 MG TABLET PO SCH ×4 (01:48→18:08)
[2020-04-21] MEDS: PANTOPRAZOLE SODIUM 40 MG TABLET.DR PO SCH (05:29)
[2020-04-21 06:37] LABS: ALBUMIN 2.7 g/dL (3.5-5.0); ALKALINE PHOSPHATASE 87 U/L (38-126); ANION GAP 5 (5-19); ASPARTATE AMINO TRANSFERASE 20 U/L (14-36); BILIRUBIN,TOTAL 0.2 mg/dL (0.2-1.3); BLOOD UREA NITROGEN 11 mg/dL (7-20); CALCIUM 8.2 mg/dL (8.4-10.2); CARBON DIOXIDE 28 mmol/L (22-30); CHLORIDE 103 mmol/L (98-107); GLUCOSE 91 mg/dL (75-110); POTASSIUM 3.9 mmol/L (3.6-5.0); TOTAL PROTEIN 5.8 g/dL (6.3-8.2)
--- NOTE | 2020-04-21 08:22 | EKG REPORT ---
SEVERITY:- ABNORMAL ECG - SINUS RHYTHM LAFB BORDERLINE T ABNORMALITIES, DIFFUSE LEADS : Confirmed by: Paul Pina MD 21-Apr-2020 08:21:44
[2020-04-21] MEDS: MAGNESIUM SULFATE/D5W 1 GM/100 ML RTUPB IV SCH ×2 (10:44→12:06)
[2020-04-21] MEDS: LISINOPRIL 10 MG TABLET PO SCH (10:45)
[2020-04-21] MEDS: PHENYTOIN SODIUM EXTENDED 100 MG CAPSULE PO SCH ×2 (10:45→21:19)
[2020-04-21] MEDS: CARVEDILOL 12.5 MG TABLET PO SCH ×2 (10:45→21:19)
[2020-04-21] MEDS: DOCUSATE SODIUM 100 MG CAPSULE PO SCH ×2 (10:45→17:04)
[2020-04-21] MEDS: NORMAL SALINE 10 ML SDV (SCHEDULED) IV SCH ×2 (10:46→21:19)
[2020-04-21] MEDS: LEVETIRACETAM XR 500 MG TAB.SR.24H PO SCH (11:09)
--- NOTE | 2020-04-21 11:55 | RADIOLOGY REPORT (SQ) ---
EXAM DESCRIPTION: CHEST SINGLE VIEW IMAGES COMPLETED DATE/TIME: 04/21/2020 5:56 am REASON FOR STUDY: aortic dissection COMPARISON: 04/20/2020 EXAM PARAMETERS: NUMBER OF VIEWS: One view. TECHNIQUE: Single frontal radiographic view of the chest acquired. RADIATION DOSE: NA LIMITATIONS: None. FINDINGS: LUNGS AND PLEURA: No opacities, masses or pneumothorax. No pleural effusion. MEDIASTINUM AND HILAR STRUCTURES: Markedly increased size of the mediastinum consistent with signific ant short interval worsening of this patient's known aortic dissection. HEART AND VASCULAR STRUCTURES: Heart normal in size. Normal vasculature. BONES: No acute findings. HARDWARE: Left upper extremity PICC terminates in the region of the superior vena cava. OTHER: No other significant finding. IMPRESSION: Markedly increased mediastinal width consistent with significant worsening of this patie nt's known aortic dissection. Left upper extremity PICC demonstrating appropriate positioning. COMMENT: Pertinent findings on the imaging study reported as a CRITICAL RESULT to WILLY Claire at11:43 on 04/21/2020. Category of Critical Result: Aortic dissection TECHNICAL DOCUMENTATION: JOB ID: [id number] 2010 [employer]- All Rights Reserved Reading location - IP/workstation name: [email or web address]
--- NOTE | 2020-04-21 15:12 | RADIOLOGY REPORT (SQ) ---
EXAM DESCRIPTION: CTA CHEST; CTA ABDOMEN/PELVIS W WO IMAGES COMPLETED DATE/TIME: 04/21/2020 2:00 pm REASON FOR STUDY: aortic dissection COMPARISON: 04/21/2020, 04/20/2020, 04/15/2020 CONTRAST TYPE AND DOSE: contrast/concentration: Isovue 350.00 mmol/ml; Total Contrast Delivered: 100 .0 ml; Total Saline Delivered: 90.0 ml RENAL FUNCTION: BUN 11; creatinine 0.44 TECHNIQUE: CT scan of the chest, abdomen and pelvis performed B foreign after the uneventful adminis tration of intravenous contrast using helical scanning technique with dynamic intravenous contrast in jection. Images reviewed with lung, soft tissue and bone windows. Reconstructed coronal and sagitta l MPR images reviewed. Delayed images were not acquired. All images stored on PACS. All CT scanners at this facility use dose modulation, iterative reconstruction, and/or weight based d osing when appropriate to reduce radiation dose to as low as reasonably achievable (ALARA). [facility]: Dose Right [facility]: CareDose [facility]: Dose Right [facility]: Teradose 4D [facility]: Mediafly RADIATION DOSE: CT Rad equipment meets quality standard of care and radiation dose reduction techniq ues were employed. CTDIvol: 5.7 - 19.8 mGy. DLP: 764 mGy-cm. . LIMITATIONS: None. FINDINGS: PRECONTRAST IMAGING: Left upper extremity PICC terminates in the region of the cavoatrial junction. Trace atherosclerotic calcifications are demonstrated. Ill-defined calcifications of the renal medullary pyramids suggest medullary calcinosis. No other significant calcifications. CHEST: LUNGS AND PLEURA: Bibasilar atelectasis versus scarring with trace right-sided pleural effusion. No focal consolidation. No pneumothorax. HILAR AND MEDIASTINAL STRUCTURES: No identified masses or abnormal nodes. HEART AND VASCULAR STRUCTURES: Cardiomegaly. Re- demonstration of a [place] type B aortic dissectio n demonstrating approximately 4 mm increase in size (previously 4.4 by 4.7 cm in maximal orthogonal d imension, now measuring 4.8 by 4.9 cm as measured in the same planes), without extension or rupture. The dissection terminates at the level of the celiac artery which appears diminutive, but demonstrat es uniform opacification and originates from the true lumen. HARDWARE: None. THYROID AND OTHER SOFT TISSUES: Multinodular thyroid. No lymphadenopathy or masses. BONES: No significant finding. OTHER: No other significant finding. ABDOMEN AND PELVIS: LIVER: Normal size. No masses. No dilated ducts. SPLEEN: Status post splenectomy. PANCREAS: No masses. No significant calcifications. No adjacent inflammation or peripancreatic fluid collections. Pancreatic duct not dilated. GALLBLADDER: No identified stones by CT criteria. No inflammatory changes to suggest cholecystitis. ADRENAL GLANDS: No significant masses or asymmetry. RIGHT KIDNEY AND URETER: No solid masses. No significant calcification. No hydronephrosis or hydroure ter. LEFT KIDNEY AND URETER: No solid masses. Incidental note is made of a 3.7 cm simple cyst. No signif icant calcification. No hydronephrosis or hydroureter. AORTA AND VESSELS: The celiac trunk, superior mesenteric artery, renal arteries, and inferior mesente emily artery each demonstrate uniform caliber and opacification. Atherosclerotic vascular calcificatio ns are seen of the proximal right renal artery. 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 The diameter proxima l to this lesion is 2.1 cm. The diameter distal to this lesion is 2.0 cm. A small amount of calcifi c plaque is seen within the outpouching. RETROPERITONEUM: No retroperitoneal adenopathy, hemorrhage or masses. BOWEL AND PERITONEAL CAVITY: There is a prominent rectal stool burden. No focal inflammatory changes , bowel obstruction, or obstruction. APPENDIX: Normal. ABDOMINAL WALL: No masses. No hernias. PELVIS: No mass or free fluid. Normal bladder. BONES: Re- demonstration of T12 and L1 vertebral body compression deformities without significant pro gression. No acute osseous injuries. OTHER: No other significant finding. IMPRESSION: [place] type B dissection with short interval 4 mm increase in size (now measuring 4.8 x 4.9 cm in greatest orthogonal dimension) without proximal or distal extension or rupture. Small focal outpouching of the infrarenal abdominal aorta does not meet minimum measurement criteria for characterization as a saccular aneurysm. TECHNICAL DOCUMENTATION: JOB ID: [id number] Quality ID # [id number]: Final reports with documentation of one or more dose reduction techniques (e.g., Au tomated exposure control, adjustment of the mA and/or kV according to patient size, use of iterative reconstruction technique) 2010 [employer]- All Rights Reserved Reading location - IP/workstation name: [email or web address]
[2020-04-21] MEDS ORDERED: POLYETHYLENE GLYCOL 3350 POWDER 17 GM/1 PACKET PO PRN (15:46)
--- NOTE | 2020-04-21 18:01 | PDOC CRITICAL CARE PROG REPORT ---
General Date:: 04/21/20 ICU Day:: 7 Hospital Day:: 7 Resuscitation Status: Full Code Events in the past 12 to 24 Hours:: This 64-year-old -[place] female was admitted on 04/15/2020 after experiencing a fall several days prior to presentation. She was concerned that she was failing to improve. No loss of consciousness. In the emergency department, head and neck evaluation was unrevealing; however, there was an incidental finding in the lower cuts of the neck imaging which raised concern for possible aortic abnormality. CTA of the chest revealed [place] type B dissection of an aortic aneurysm. She was admitted to the ICU on an esmolol drip. 04/16: This morning, the patient appears to have had a partial seizure (appears to involve facial muscles and predominantly the left side: saccadic eye movements, lipsmacking, rhythmic movement of the left upper extremity). She does have postictal, estefani-event amnesia. She remains on esmolol infusion. 04/17: Still on esmolol infusion, now at 50 mcg/kg/min. Also on Coreg 25 mg p.o. twice daily along with Vasotec 1.25 mg IV every 6 hours. No seizure activity in the interim. Today, it is clear that the patient is demonstrating short-term memory deficit along with confabulation and perseveration. She is repeating essentially the same interaction on a daily basis. In fact, she even repeats the same interaction multiple times during the same day, telling the same stories. 04/18: at the bedside today. Updated. He confirms that the patient's waxing and waning mental status is consistent with her baseline. Still on esmolol at 150 mcg/kg/min. On Coreg 25 mg p.o. twice daily. Heart rate in the 70s. 04/19: Currently off esmolol infusion. On Coreg 25 mg p.o. twice daily, lisinopril 40 mg p.o. daily. Cardizem was increased from 30 to 60 mg p.o. in the interim, in hopes of being able to stay off esmolol infusion. Mentating well. Heart rate in the 60s. No subsequent seizure activity since 04/16/2020. 04/20: Has again had to restart esmolol infusion. On Coreg 50 mg p.o. twice daily, lisinopril 40 mg p.o. daily, Cardizem 60 mg p.o. every 6 hours. Also started clonidine 0.1 mg p.o. every 8 hours in the interim. Today, the patient complained of right-sided leg pain and pain shooting up the right side of her neck. Stat 2D echo to investigate the aortic root and stat carotid Dopplers and lower extremity arterial Dopplers were ordered. No evidence of dissection was detected. The patient has remained hemodynamically stable. No chest pain. No visual changes. No renal failure. 04/21: Currently off esmolol infusion. On Coreg 50 mg p.o. twice daily, lisinopril 40 mg p.o. daily, Cardizem 60 mg p.o. every 6 hours and clonidine 0.2 mg p.o. every 8 hours. No new symptoms. Chest x-ray this morning suggests further widening of the mediastinum; however, the film was definitely rotated. Was notified by the tele-radiologist of the widened mediastinum. CTA chest/abdomen/pelvis was done to reevaluate. Review of systems relevant to events:: Cardiovascular: [place] type B aortic dissection, accelerated hypertension Neuropsychiatric: Confabulation, perseveration, short-term memory deficit Reason for ICU Addmission:: Thai type B aortic dissection - Medications: Medications reviewed and adjusted accordingly: Yes Physical Exam Vital Signs: Temp Pulse Resp BP Pulse Ox 98.2 F 70 16 108/77 100 04/21/20 12:00 04/21/20 12:00 04/21/20 12:00 04/21/20 12:00 04/21/20 12:00 Intake & Output 04/20/20 04/21/20 04/22/20 06:59 06:59 06:59 Intake Total 1684 680 100 Output Total 2049 1989 Balance -366 1310 100 Weight 52.8 kg 53.1 kg Weight/Height Weight 53.1 kg Height 1.68 m General appearance: PRESENT: no acute distress, well-developed, well-nourished Head exam: PRESENT: atraumatic, normocephalic Eye exam: PRESENT: conjunctiva pink, EOMI, PERRLA. ABSENT: scleral icterus Neck exam: PRESENT: full ROM, other - Multinodular thyroid without overt thyromegaly.. ABSENT: carotid bruit, JVD, tracheal deviation Respiratory exam: PRESENT: clear to auscultation charmaine. ABSENT: rales, rhonchi, wheezes Cardiovascular exam: PRESENT: RRR. ABSENT: diastolic murmur, rubs, systolic murmur Pulses: PRESENT: normal femoral pulses, normal dorsalis pedis pul GI/Abdominal exam: PRESENT: normal bowel sounds, soft. ABSENT: distended, guarding, mass, organolmegaly, rebound, tenderness Extremities exam: PRESENT: full ROM. ABSENT: calf tenderness, clubbing, pedal edema Neurological exam: PRESENT: alert, awake, oriented to person, oriented to place, oriented to time, oriented to situation, CN II-XII grossly intact. ABSENT: motor sensory deficit Psychiatric exam: ABSENT: agitated, anxious Skin exam: PRESENT: dry, intact, warm. ABSENT: cyanosis, rash Tubes/Lines: PRESENT: Other - Left upper extremity PICC Laboratory/Radiographs Laboratory Results: 04/17/20 04:43 04/21/20 05:37 04/21/20 05:37 Sodium 136.3 L Potassium 3.9 Chloride 103 Carbon Dioxide 28 Anion Gap 5 BUN 11 Creatinine 0.44 L Est GFR ( Amer) > 60 Glucose 91 Calcium 8.2 L Total Bilirubin 0.2 AST 20 Alkaline Phosphatase 87 Total Protein 5.8 L Albumin 2.7 L 04/15/20 04/15/20 15:39 15:39 Creatine Kinase 90 CK-MB (CK-2) 0.72 Troponin I < 0.012 NT-Pro-B Natriuret Pep 494 H Impressions: Head CT 04/15/20 06:27 IMPRESSION: 1. No acute intracranial hemorrhage, mass, or evidence of acute territorial infarct. 2. Chronic encephalomalacia and gliosis in the right temporal lobe with right temporal craniectomy, stable from prior. EVIDENCE OF ACUTE STROKE: NO. Soft Tissue Neck CT 04/15/20 06:27 IMPRESSION: 1. At the posterior aspect of the aortic arch there appears to be a double lumen, possibly secondary to tortuosity, however this is a new appearance for the patient and there is also new surrounding soft tissue attenuation at the aortic arch, and dissection cannot be excluded. Further evaluation with CT angiography of the chest is recommended. 2. 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 Differential includes Warthin's tumor, pleomorphic adenoma, other soft tissue masses, given increase in size, ENT consultation is recommended. 3. Multiple bilateral thyroid nodules, not significantly changed since 2018. Chest/Abdomen CTA 04/15/20 09:15 IMPRESSION: [place] Baker type B dissection. Maximum aortic diameter 5.4 x 5.0 cm. Dissection extends into the upper abdomen. Ankle X-Ray 04/15/20 12:40 IMPRESSION: NO RADIOGRAPHIC EVIDENCE OF ACUTE INJURY. Carotid Doppler Study 04/20/20 00:00 IMPRESSION: NO HEMODYNAMICALLY SIGNIFICANT STENOSIS. Lower Extremity Ultrasound 04/20/20 00:00 IMPRESSION: NORMAL BILATERAL LOWER EXTREMITY ARTERIAL DOPPLER. PICC Line Insertion 04/20/20 00:00 IMPRESSION: SUCCESSFUL PLACEMENT OF A 5 FR DUAL LUMEN 40 CM PICC IN THE LEFT BASILIC VEIN. Chest X-Ray 04/21/20 05:00 IMPRESSION: Markedly increased mediastinal width consistent with significant worsening of this patient's known aortic dissection. Left upper extremity PICC demonstrating appropriate positioning. 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 * CTA chest/abdomen/pelvis to assess progression of aortic dissection. * Continue Coreg 50 mg p.o. twice daily, lisinopril 40 mg p.o. daily, diltiazem 60 mg p.o. every 6 hours clonidine 0.2 mg p.o. 3 times daily. * The patient and her are in agreement that once hemodynamic optimization has been achieved, the patient should be transferred to a higher level of care where definitive treatment of her dissecting aneurysm may be provided. * Due to concerns for possible progression, I did reach out to [facility] and [facility] to investigate the possibility of patient transfer. This gave me the opportunity to speak to 2 different vascular surgeons (Dr. Coello at [facility] and Dr. Derick Jennings at [facility]). Both were in agreement that a CTA would be helpful in assessing progression/worsening of the dissection suggested by the chest x-ray. Significant progression would warrant transfer and surgical intervention. If stable, the patient has an outpatient appointment at [facility] on 05/01/2020. (2) Accelerated hypertension Is this a current diagnosis for this admission?: Yes (3) Seizure Is this a current diagnosis for this admission?: Yes Plan: Change Keppra and Dilantin to previous home doses. Initial seizure activity was controlled with Ativan 2 mg IV single dose. (4) Chronic obstructive pulmonary disease Qualifiers: COPD type: chronic bronchitis Is this a current diagnosis for this admission?: Yes Plan: Apparently does not need COPD maintenance therapy at home. (5) Mass of right parotid gland Is this a current diagnosis for this admission?: No (6) Multiple thyroid nodules Is this a current diagnosis for this admission?: No Critical Time Critical Time (minutes): 90 Level of Care: ICU -: 1. The care of a critical patient is a dynamic process. This note is a rep resentative synopsis but static in nature. The timeframe for treatments given in order is not necessarily the actual time these treatments may have been done. 2. This patient requires critical care secondary to ongoing requirements for therapy not offered or safe outside the critical care environment. Transfer to a lower level of care will result in altered life or limb morbidity and mortality. 3. Multidisciplinary rounds completed. 4. ABCDE bundle addressed.
[2020-04-21] MEDS ORDERED: BISACODYL 10 MG SUPP.RECT PR ONE (23:10)
[2020-04-22] MEDS ORDERED: MORPHINE SULFATE 10 MG/ML INJ IV ONE (02:18)
[2020-04-22] MEDS ORDERED: MORPHINE SULFATE 10 MG/ML INJ ONE (02:20)
[2020-04-22] MEDS: CLONIDINE HCL 0.1 MG TABLET PO SCH ×3 (02:27→17:48)
[2020-04-22] MEDS: DILTIAZEM HCL 60 MG TABLET PO SCH ×3 (05:18→17:48)
[2020-04-22] MEDS: PANTOPRAZOLE SODIUM 40 MG TABLET.DR PO SCH (05:18)
[2020-04-22] MEDS ORDERED: LIDOCAINE 2% JELLY 5 ML TUBE TOP ONE (06:06)
[2020-04-22] MEDS ORDERED: LIDOCAINE 2% JELLY 5 ML TUBE ONE (06:17)
[2020-04-22 06:32] LABS: HEMATOCRIT 28.6 % (36.0-47.0); HEMOGLOBIN 9.4 g/dL (12.0-15.5); MEAN CORPUSCULAR HEMOGLOBIN 29.2 pg (27.0-33.4); MEAN CORPUSCULAR HGB CONC 32.8 g/dL (32.0-36.0); MEAN CORPUSCULAR VOLUME 89 fl (80-97); PLATELET COUNT 209 10^3/uL (150-450); RED BLOOD COUNT 3.21 10^6/uL (3.72-5.28); RED CELL DISTRIBUTION WIDTH 16.1 % (11.5-14.0); WHITE BLOOD COUNT 11.6 10^3/uL (4.0-10.5)
[2020-04-22 06:41] LABS: ALKALINE PHOSPHATASE 102 U/L (38-126); ASPARTATE AMINO TRANSFERASE 32 U/L (14-36); BILIRUBIN,TOTAL 0.5 mg/dL (0.2-1.3); BLOOD UREA NITROGEN 14 mg/dL (7-20); CALCIUM 8.5 mg/dL (8.4-10.2); GLUCOSE 101 mg/dL (75-110); POTASSIUM 4.3 mmol/L (3.6-5.0); TOTAL PROTEIN 6.4 g/dL (6.3-8.2)
[2020-04-22 06:46] LABS: ANION GAP 6 (5-19); CARBON DIOXIDE 26 mmol/L (22-30); CHLORIDE 102 mmol/L (98-107)
--- NOTE | 2020-04-22 09:30 | RADIOLOGY REPORT (SQ) ---
EXAM DESCRIPTION: CHEST SINGLE VIEW IMAGES COMPLETED DATE/TIME: 04/22/2020 5:48 am REASON FOR STUDY: aortic dissection COMPARISON: 04/21/2020 EXAM PARAMETERS: NUMBER OF VIEWS: One view. TECHNIQUE: Single frontal radiographic view of the chest acquired. RADIATION DOSE: NA LIMITATIONS: None. FINDINGS: LUNGS AND PLEURA: No opacities, masses or pneumothorax. No pleural effusion. MEDIASTINUM AND HILAR STRUCTURES: Stable widening of the cardiomediastinal silhouette on the basis of known thoracic aortic dissection. HEART AND VASCULAR STRUCTURES: Stable. BONES: No acute findings. HARDWARE: Interval removal of a left upper extremity PICC. OTHER: No other significant finding. IMPRESSION: 1. No evidence of acute pulmonary abnormality. Stable cardiomediastinal silhouette. 2. Interval removal of a left upper extremity PICC. TECHNICAL DOCUMENTATION: JOB ID: [id number] 2010 [employer]- All Rights Reserved Reading location - IP/workstation name: [email or web address]
[2020-04-22] MEDS: CARVEDILOL 12.5 MG TABLET PO SCH ×2 (10:11→22:18)
[2020-04-22] MEDS: DOCUSATE SODIUM 100 MG CAPSULE PO SCH ×2 (10:11→17:48)
[2020-04-22] MEDS: LISINOPRIL 10 MG TABLET PO SCH (10:11)
[2020-04-22] MEDS: PHENYTOIN SODIUM EXTENDED 100 MG CAPSULE PO SCH ×2 (10:11→22:20)
[2020-04-22] MEDS: LEVETIRACETAM XR 500 MG TAB.SR.24H PO SCH (10:11)
[2020-04-22] MEDS: NORMAL SALINE 10 ML SDV (SCHEDULED) IV SCH ×2 (10:12→22:40)
--- NOTE | 2020-04-22 12:16 | PDOC CRITICAL CARE PROG REPORT ---
General Date:: 04/22/20 ICU Day:: 8 Hospital Day:: 8 Resuscitation Status: Full Code Events in the past 12 to 24 Hours:: This 64-year-old -[place]amanian female was admitted on 04/15/2020 after experiencing a fall several days prior to presentation. She was concerned that she was failing to improve. No loss of consciousness. In the emergency department, head and neck evaluation was unrevealing; however, there was an incidental finding in the lower cuts of the neck imaging which raised concern for possible aortic abnormality. CTA of the chest revealed [place] type B dissection of an aortic aneurysm. She was admitted to the ICU on an esmolol drip. 04/16: This morning, the patient appears to have had a partial seizure (appears to involve facial muscles and predominantly the left side: saccadic eye movements, lipsmacking, rhythmic movement of the left upper extremity). She does have postictal, estefani-event amnesia. She remains on esmolol infusion. 04/17: Still on esmolol infusion, now at 50 mcg/kg/min. Also on Coreg 25 mg p.o. twice daily along with Vasotec 1.25 mg IV every 6 hours. No seizure activity in the interim. Today, it is clear that the patient is demonstrating short-term memory deficit along with confabulation and perseveration. She is repeating essentially the same interaction on a daily basis. In fact, she even repeats the same interaction multiple times during the same day, telling the same stories. 04/18: at the bedside today. Updated. He confirms that the patient's waxing and waning mental status is consistent with her baseline. Still on esmolol at 150 mcg/kg/min. On Coreg 25 mg p.o. twice daily. Heart rate in the 70s. 04/19: Currently off esmolol infusion. On Coreg 25 mg p.o. twice daily, lisinopril 40 mg p.o. daily. Cardizem was increased from 30 to 60 mg p.o. in the interim, in hopes of being able to stay off esmolol infusion. Mentating well. Heart rate in the 60s. No subsequent seizure activity since 04/16/2020. 04/20: Has again had to restart esmolol infusion. On Coreg 50 mg p.o. twice daily, lisinopril 40 mg p.o. daily, Cardizem 60 mg p.o. every 6 hours. Also started clonidine 0.1 mg p.o. every 8 hours in the interim. Today, the patient complained of right-sided leg pain and pain shooting up the right side of her neck. Stat 2D echo to investigate the aortic root and stat carotid Dopplers and lower extremity arterial Dopplers were ordered. No evidence of dissection was detected. The patient has remained hemodynamically stable. No chest pain. No visual changes. No renal failure. 04/21: Currently off esmolol infusion. On Coreg 50 mg p.o. twice daily, lisinopril 40 mg p.o. daily, Cardizem 60 mg p.o. every 6 hours and clonidine 0.2 mg p.o. every 8 hours. No new symptoms. Chest x-ray this morning suggests further widening of the mediastinum; however, the film was definitely rotated. Was notified by the tele-radiologist of the widened mediastinum. CTA chest/abdomen/pelvis was done to reevaluate. 04/22: Currently off esmolol infusion. Blood pressure appears to be controlled with Coreg 50 mg p.o. twice daily, lisinopril 40 mg p.o. daily, Cardizem 60 mg p.o. every 6 hours. Clonidine was increased from 0.1 to 0.2 mg p.o. every 8 hours yesterday. No new symptoms. CTA evaluation of the patient's aortic dissection was done yesterday due to concern for further widening of the mediastinum. No significant change was identified. Review of systems relevant to events:: Cardiovascular: Thai type B aortic dissection, accelerated hypertension Neuropsychiatric: Confabulation, perseveration, short-term memory deficit Reason for ICU Addmission:: [place] type B aortic dissection - Medications: Medications reviewed and adjusted accordingly: Yes Physical Exam Vital Signs: Temp Pulse Resp BP Pulse Ox 98.7 F 75 14 99/70 L 96 04/22/20 08:00 04/22/20 10:00 04/22/20 10:03 04/22/20 10:03 04/22/20 10:03 Intake & Output 04/21/20 04/22/20 04/23/20 06:59 06:59 06:59 Intake Total 680 200 Output Total 1989 300 0 Balance -1310 -100 0 Weight 53.1 kg 52.5 kg Weight/Height Weight 52.5 kg Height 1.68 m General appearance: PRESENT: no acute distress, well-developed, well-nourished Head exam: PRESENT: atraumatic, normocephalic Eye exam: PRESENT: conjunctiva pink, EOMI, PERRLA. ABSENT: scleral icterus Mouth exam: PRESENT: moist, tongue midline Neck exam: ABSENT: carotid bruit, JVD, lymphadenopathy, thyromegaly Respiratory exam: PRESENT: clear to auscultation charmaine. ABSENT: rales, rhonchi, wheezes Cardiovascular exam: PRESENT: RRR. ABSENT: diastolic murmur, rubs, systolic murmur Pulses: PRESENT: normal carotid pulses, normal femoral pulses, normal dorsalis pedis pul GI/Abdominal exam: PRESENT: normal bowel sounds, soft. ABSENT: distended, guarding, mass, organolmegaly, rebound, tenderness Extremities exam: PRESENT: full ROM. ABSENT: calf tenderness, clubbing, pedal e mario Neurological exam: PRESENT: alert, awake, oriented to person, oriented to place, oriented to time, oriented to situation, CN II-XII grossly intact. ABSENT: motor sensory deficit Psychiatric exam: ABSENT: agitated, anxious Skin exam: PRESENT: dry, intact, warm. ABSENT: cyanosis, rash Laboratory/Radiographs Laboratory Results: 04/22/20 05:48 04/22/20 05:48 04/22/20 04/22/20 05:48 05:48 WBC 11.6 H RBC 3.21 L Hgb 9.4 L Hct 28.6 L MCV 89 MCH 29.2 MCHC 32.8 RDW 16.1 H Plt Count 209 Sodium 134.4 L Potassium 4.3 Chloride 102 Carbon Dioxide 26 Anion Gap 6 BUN 14 Creatinine 0.43 L Est GFR ( Amer) > 60 Glucose 101 Calcium 8.5 Magnesium 2.1 Total Bilirubin 0.5 AST 32 Alkaline Phosphatase 102 Total Protein 6.4 Albumin 3.0 L 04/15/20 04/15/20 15:39 15:39 Creatine Kinase 90 CK-MB (CK-2) 0.72 Troponin I < 0.012 NT-Pro-B Natriuret Pep 494 H Impressions: Head CT 04/15/20 06:27 IMPRESSION: 1. No acute intracranial hemorrhage, mass, or evidence of acute territorial infarct. 2. Chronic encephalomalacia and gliosis in the right temporal lobe with right temporal craniectomy, stable from prior. EVIDENCE OF ACUTE STROKE: NO. Soft Tissue Neck CT 04/15/20 06:27 IMPRESSION: 1. At the posterior aspect of the aortic arch there appears to be a double lumen, possibly secondary to tortuosity, however this is a new appearance for the patient and there is also new surrounding soft tissue attenuation at the aortic arch, and dissection cannot be excluded. Further evaluation with CT angiography of the chest is recommended. 2. 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 Differential includes Warthin's tumor, pleomorphic adenoma, other soft tissue masses, given increase in size, ENT consultation is recommended. 3. Multiple bilateral thyroid nodules, not significantly changed since 2018. Ankle X-Ray 04/15/20 12:40 IMPRESSION: NO RADIOGRAPHIC EVIDENCE OF ACUTE INJURY. Carotid Doppler Study 04/20/20 00:00 IMPRESSION: NO HEMODYNAMICALLY SIGNIFICANT STENOSIS. Lower Extremity Ultrasound 04/20/20 00:00 IMPRESSION: NORMAL BILATERAL LOWER EXTREMITY ARTERIAL DOPPLER. PICC Line Insertion 04/20/20 00:00 IMPRESSION: SUCCESSFUL PLACEMENT OF A 5 FR DUAL LUMEN 40 CM PICC IN THE LEFT BASILIC VEIN. Abdomen/Pelvis CTA 04/21/20 00:00 IMPRESSION: Thai type B dissection with short interval 4 mm increase in size (now measuring 4.8 x 4.9 cm in greatest orthogonal dimension) without proximal or distal extension or rupture. Small focal outpouching of the infrarenal abdominal aorta does not meet minimum measurement criteria for characterization as a saccular aneurysm. Chest/Abdomen CTA 04/21/20 00:00 IMPRESSION: Thai type B dissection with short interval 4 mm increase in size (now measuring 4.8 x 4.9 cm in greatest orthogonal dimension) without proximal or distal extension or rupture. Small focal outpouching of the infrarenal abdominal aorta does not meet minimum measurement criteria for characterization as a saccular aneurysm. Chest X-Ray 04/22/20 05:00 IMPRESSION: 1. No evidence of acute pulmonary abnormality. Stable cardiomediastinal silhouette. 2. Interval removal of a left upper extremity PICC. All labs, radiographs, diagnostic studies and EKGs were personally reviewed: Yes In addition, reports of radiographic and diagnostic studies were read: Yes Assessment and Plan - Diagnosis (1) Dissecting aneurysm of thoracic aorta, Thai type B Is this a current diagnosis for this admission?: Yes Plan: * Continue Coreg 50 mg p.o. twice daily, lisinopril 40 mg p.o. daily, diltiazem 60 mg p.o. every 6 hours clonidine 0.2 mg p.o. 3 times daily. * The patient and her are in agreement that once hemodynamic optimization has been achieved, the patient should be transferred to a higher level of care where definitive treatment of her dissecting aneurysm may be provided. * Due to concerns for possible progression, I did reach out to [facility] and [facility] (04/21/2020) to investigate the possibility of patient transfer. This gave me the opportunity to speak to 2 different vascular surgeons (Dr. Coello at [facility], Dr. Derick Jennings at [facility]). Both were in agreement that a CTA would be helpful in assessing progression/worsening of the dissection suggested by the chest x-ray. Significant progression would warrant transfer and surgical intervention. If stable, the patient has an outpatient appointment at [facility] on 05/01/2020. (2) Accelerated hypertension Is this a current diagnosis for this admission?: Yes (3) Seizure Is this a current diagnosis for this admission?: Yes (4) Chronic obstructive pulmonary disease Qualifiers: COPD type: chronic bronchitis Is this a current diagnosis for this admission?: Yes (5) Mass of right parotid gland Is this a current diagnosis for this admission?: No Plan: Patient reports that this has previously been biopsied. She reports that she was informed that no further work-up was required. I do not have records to confirm or contest this recommendation. However, the does corroborate this history. (6) Multiple thyroid nodules Is this a current diagnosis for this admission?: No Plan: Patient reports that this has previously been biopsied. She reports that she was informed that no further work-up was required. I do not have records to confirm or contest this recommendation. However, the patient does corroborate this history. Plan Summary: OK to transfer to [facility] from pulmonary/critical care standpoint. Critical Time Critical Time (minutes): 45 Level of Care: ICU -: 1. The care of a critical patient is a dynamic process. This note is a agency sales representative synopsis but static in nature. The timeframe for treatments given in order is not necessarily the actual time these treatments may have been done. 2. This patient requires critical care secondary to ongoing requirements for therapy not offered or safe outside the critical care environment. Transfer to a lower level of care will result in altered life or limb morbidity and mortality. 3. Multidisciplinary rounds completed. 4. ABCDE bundle addressed.
[2020-04-22] MEDS ORDERED: CARVEDILOL 12.5 MG TABLET PO ONE (21:54)
[2020-04-23] MEDS: DILTIAZEM HCL 60 MG TABLET PO SCH ×4 (00:07→22:15)
[2020-04-23] MEDS ORDERED: CLONIDINE HCL 0.2 MG TABLET ONE (02:45)
[2020-04-23] MEDS ORDERED: CLONIDINE HCL 0.1 MG TABLET PO ONE (03:15)
[2020-04-23] MEDS: CLONIDINE HCL 0.1 MG TABLET PO SCH ×3 (03:21→17:30)
[2020-04-23] MEDS: PANTOPRAZOLE SODIUM 40 MG TABLET.DR PO SCH (05:56)
[2020-04-23] MEDS: DOCUSATE SODIUM 100 MG CAPSULE PO SCH ×2 (11:19→17:31)
[2020-04-23] MEDS: LEVETIRACETAM XR 500 MG TAB.SR.24H PO SCH (11:19)
[2020-04-23] MEDS: CARVEDILOL 12.5 MG TABLET PO SCH ×2 (11:19→22:15)
[2020-04-23] MEDS: LISINOPRIL 10 MG TABLET PO SCH (11:20)
[2020-04-23] MEDS: PHENYTOIN SODIUM EXTENDED 100 MG CAPSULE PO SCH ×2 (11:20→22:15)
[2020-04-23] MEDS: NORMAL SALINE 10 ML SDV (SCHEDULED) IV SCH ×2 (11:20→22:16)
--- NOTE | 2020-04-23 13:26 | PDOC CRITICAL CARE PROG REPORT ---
General Date:: 04/23/20 ICU Day:: 8 Hospital Day:: 8 Resuscitation Status: Full Code Events in the past 12 to 24 Hours:: Blood pressure under good control. Review of systems relevant to events:: CV Reason for ICU Addmission:: [place] type B aortic dissection - Medications: Medications reviewed and adjusted accordingly: Yes Vasopressors:: None Sedation:: None Physical Exam Vital Signs: Temp Pulse Resp BP Pulse Ox 98 F 72 11 L 97/71 L 100 04/23/20 06:00 04/23/20 08:00 04/23/20 13:00 04/23/20 12:51 04/23/20 13:00 Intake & Output 04/22/20 04/23/20 04/24/20 06:59 06:59 06:59 Intake Total 200 Output Total 300 100 Balance -100 -100 Weight 52.5 kg 52.8 kg Weight/Height Weight 52.8 kg Height 5 ft 6 in General appearance: PRESENT: no acute distress, cooperative, thin Head exam: PRESENT: atraumatic, normocephalic Eye exam: PRESENT: conjunctiva pink, EOMI, PERRLA. ABSENT: scleral icterus Mouth exam: PRESENT: moist, tongue midline Respiratory exam: PRESENT: clear to auscultation [place]. ABSENT: rales, rhonchi, wheezes Cardiovascular exam: PRESENT: RRR. ABSENT: diastolic murmur, rubs, systolic murmur GI/Abdominal exam: PRESENT: normal bowel sounds, soft. ABSENT: distended, guarding, mass, organolmegaly, rebound, tenderness Rectal exam: PRESENT: deferred Extremities exam: PRESENT: full ROM. ABSENT: calf tenderness, clubbing, pedal edema Musculoskeletal exam: PRESENT: normal inspection Neurological exam: PRESENT: alert, awake, oriented to person, oriented to place, oriented to time, oriented to situation, CN II-XII grossly intact. ABSENT: motor sensory deficit Psychiatric exam: PRESENT: appropriate affect, normal mood. ABSENT: homicidal ideation, suicidal ideation Skin exam: PRESENT: dry, intact, warm. ABSENT: cyanosis, rash Laboratory/Radiographs Laboratory Results: 04/22/20 05:48 04/22/20 05:48 04/15/20 04/15/20 15:39 15:39 Creatine Kinase 90 CK-MB (CK-2) 0.72 Troponin I < 0.012 NT-Pro-B Natriuret Pep 494 H Impressions: Head CT 04/15/20 06:27 IMPRESSION: 1. No acute intracranial hemorrhage, mass, or evidence of acute territorial infarct. 2. Chronic encephalomalacia and gliosis in the right temporal lobe with right temporal craniectomy, stable from prior. EVIDENCE OF ACUTE STROKE: NO. Soft Tissue Neck CT 04/15/20 06:27 IMPRESSION: 1. At the posterior aspect of the aortic arch there appears to be a double lumen, possibly secondary to tortuosity, however this is a new appearance for the patient and there is also new surrounding soft tissue attenuation at the aortic arch, and dissection cannot be excluded. Further evaluation with CT angiography of the chest is recommended. 2. 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 Differential includes Warthin's tumor, pleomorphic adenoma, other soft tissue masses, given increase in size, ENT consultation is recommended. 3. Multiple bilateral thyroid nodules, not significantly changed since 2018. Ankle X-Ray 04/15/20 12:40 IMPRESSION: NO RADIOGRAPHIC EVIDENCE OF ACUTE INJURY. Carotid Doppler Study 04/20/20 00:00 IMPRESSION: NO HEMODYNAMICALLY SIGNIFICANT STENOSIS. Lower Extremity Ultrasound 04/20/20 00:00 IMPRESSION: NORMAL BILATERAL LOWER EXTREMITY ARTERIAL DOPPLER. PICC Line Insertion 04/20/20 00:00 IMPRESSION: SUCCESSFUL PLACEMENT OF A 5 FR DUAL LUMEN 40 CM PICC IN THE LEFT BASILIC VEIN. Abdomen/Pelvis CTA 04/21/20 00:00 IMPRESSION: [place] type B dissection with short interval 4 mm increase in size (now measuring 4.8 x 4.9 cm in greatest orthogonal dimension) without proximal or distal extension or rupture. Small focal outpouching of the infrarenal abdominal aorta does not meet minimum measurement criteria for characterization as a saccular aneurysm. Chest/Abdomen CTA 04/21/20 00:00 IMPRESSION: [place] type B dissection with short interval 4 mm increase in size (now measuring 4.8 x 4.9 cm in greatest orthogonal dimension) without proximal or distal extension or rupture. Small focal outpouching of the infrarenal abdominal aorta does not meet minimum measurement criteria for characterization as a saccular aneurysm. Chest X-Ray 04/22/20 05:00 IMPRESSION: 1. No evidence of acute pulmonary abnormality. Stable cardiome diastinal silhouette. 2. Interval removal of a left upper extremity PICC. 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 BP control. Has out patient appt. (2) Mass of right parotid gland Is this a current diagnosis for this admission?: No Plan: Needs ENT evaluation when dissection issue is settled. (3) Accelerated hypertension Is this a current diagnosis for this admission?: Yes Plan: Under good control with current regimen. Keep BP low in view of type B dissection. (4) Constipation Qualifiers: Constipation type: unspecified constipation type Qualified Code(s): K59.00 - Constipation, unspecified Is this a current diagnosis for this admission?: Yes Plan: Resolved. Keeping a bowel regimen in view of dissection is warranted. Plan Summary: She has been downgraded for 2 days now. Getting close to discharge. Critical Time Critical Time (minutes): 25 Level of Care: IMCU Anticipated discharge: Home Anticipated DC Timeframe: Other -: 1. The care of a critical patient is a dynamic process. This note is a territory sales representative synopsis but static in nature. The timeframe for treatments given in order is not necessarily the actual time these treatments may have been done. 2. This patient requires critical care secondary to ongoing requirements for therapy not offered or safe outside the critical care environment. Transfer to a lower level of care will result in altered life or limb morbidity and mortality. 3. Multidisciplinary rounds completed. 4. ABCDE bundle addressed.
[2020-04-23] MEDS ORDERED: DEXTROSE 50%-WATER 25 GM/50 ML DISP.SYRIN IV PRN ×2 (15:42)
[2020-04-23] MEDS ORDERED: DEXTROSE 40% GEL 15 GM TUBE PO PRN ×2 (15:42)
[2020-04-23] MEDS ORDERED: GLUCAGON,HUMAN RECOMB 1 MG INJ IM PRN (15:42)
[2020-04-23] MEDS: INSULIN REG, HUMAN 100 UNIT/ML 3 ML VIAL (PYX) SUBCUT SCH ×2 (18:03→22:16)
[2020-04-24] MEDS: CLONIDINE HCL 0.1 MG TABLET PO SCH ×3 (02:08→18:25)
[2020-04-24] MEDS: PANTOPRAZOLE SODIUM 40 MG TABLET.DR PO SCH (05:52)
[2020-04-24] MEDS: DILTIAZEM HCL 60 MG TABLET PO SCH ×3 (05:52→22:10)
[2020-04-24 08:23] LABS: ABSOLUTE BASOPHILS # (AUTO) 0.1 10^3/uL (0.0-0.2); ABSOLUTE EOSINOPHILS # (AUTO) 0.2 10^3/uL (0.0-0.6); ABSOLUTE LYMPHOCYTES (AUTO) 3.2 10^3/uL (0.5-4.7); ABSOLUTE MONOCYTES (AUTO) 0.8 10^3/uL (0.1-1.4); ABSOLUTE NEUT (AUTO) 4.3 10^3/uL (1.7-8.2); BASOPHILS % (AUTO) 1.1 % (0-2); EOSINOPHILS % (AUTO) 1.8 % (0-6); HEMATOCRIT 30.6 % (36.0-47.0); HEMOGLOBIN 10.2 g/dL (12.0-15.5); LYMPHOCYTES % (AUTO) 37.1 % (13-45); MEAN CORPUSCULAR HGB CONC 33.2 g/dL (32.0-36.0); MEAN CORPUSCULAR VOLUME 91 fl (80-97); MONOCYTES % (AUTO) 9.7 % (3-13); PLATELET COUNT 272 10^3/uL (150-450); RED BLOOD COUNT 3.38 10^6/uL (3.72-5.28); RED CELL DISTRIBUTION WIDTH 16.1 % (11.5-14.0); SEGMENTED NEUTROPHILS % (AUTO) 50.3 % (42-78); TOTAL CELLS COUNTED % (AUTO) 100 %; WHITE BLOOD COUNT 8.5 10^3/uL (4.0-10.5)
[2020-04-24 08:42] LABS: ANION GAP 6 (5-19); BLOOD UREA NITROGEN 20 mg/dL (7-20); CALCIUM 8.8 mg/dL (8.4-10.2); CARBON DIOXIDE 30 mmol/L (22-30); CHLORIDE 101 mmol/L (98-107); GLUCOSE 110 mg/dL (75-110); POTASSIUM 4.3 mmol/L (3.6-5.0)
[2020-04-24] MEDS: DOCUSATE SODIUM 100 MG CAPSULE PO SCH ×2 (09:00→18:24)
[2020-04-24] MEDS: INSULIN REG, HUMAN 100 UNIT/ML 3 ML VIAL (PYX) SUBCUT SCH ×4 (09:00→21:57)
[2020-04-24] MEDS: CARVEDILOL 12.5 MG TABLET PO SCH ×2 (09:14→22:10)
[2020-04-24] MEDS: LEVETIRACETAM XR 500 MG TAB.SR.24H PO SCH (09:14)
[2020-04-24] MEDS: PHENYTOIN SODIUM EXTENDED 100 MG CAPSULE PO SCH ×2 (09:14→22:11)
[2020-04-24] MEDS: LISINOPRIL 10 MG TABLET PO SCH (09:14)
--- NOTE | 2020-04-24 14:18 | PDOC PROGRESS REPORT ---
Subjective Progress Note for:: 04/24/20 Subjective:: Patient was admitting in the ICU for the last 8 days because of the patient have some altered mental status and patient have a fall Patients diagnosed with the aortic dissections As per candy vendor note discussed with the vascular surgeon and deon Layton and also in [place] and suggest no need to transfer the patient follow outpatient and patient have appointment to see in May 01 And initially was on a esmolol drip and switched to the p.o. blood pressure medications Patient is currently doing well Patient's denied any chest pain no short of breath Patient having knwon -seizures activity currently on a Keppra and Dilantin Patient have a parotid tumor and thyroid biopsy was done in the ENT in the [facility] and all benign Reason For Visit: [place] TYPE B AORTIC DISSECTION Physical Exam Vital Signs: Temp Pulse Resp BP Pulse Ox 98.0 F 67 12 121/76 100 04/24/20 11:22 04/24/20 11:22 04/24/20 11:22 04/24/20 11:22 04/24/20 11:22 Intake & Output 04/23/20 04/24/20 04/25/20 06:59 06:59 06:59 Intake Total 0 Output Total 100 Balance -100 0 Weight 52.8 kg 45.8 kg General appearance: PRESENT: no acute distress, well-developed, well-nourished Head exam: PRESENT: atraumatic, normocephalic Eye exam: PRESENT: conjunctiva pink, EOMI, PERRLA. ABSENT: scleral icterus Ear exam: PRESENT: normal external ear exam Mouth exam: PRESENT: moist, tongue midline Neck exam: PRESENT: full ROM. ABSENT: carotid bruit, JVD, lymphadenopathy, thyromegaly Respiratory exam: PRESENT: clear to auscultation [place] Cardiovascular exam: PRESENT: RRR. ABSENT: diastolic murmur, rubs, systolic murmur Pulses: PRESENT: normal dorsalis pedis pul, +2 pedal pulses bilateral Vascular exam: PRESENT: normal capillary refill GI/Abdominal exam: PRESENT: normal bowel sounds, soft. ABSENT: distended, guarding, mass, organolmegaly, rebound, tenderness Rectal exam: PRESENT: deferred Musculoskeletal exam: PRESENT: ambulatory Neurological exam: PRESENT: alert, awake, oriented to person, oriented to place, oriented to time, oriented to situation, CN II-XII grossly intact. ABSENT: motor sensory deficit Psychiatric exam: PRESENT: appropriate affect, normal mood. ABSENT: homicidal ideation, suicidal ideation Skin exam: PRESENT: dry, intact, warm. ABSENT: cyanosis, rash Results Laboratory Results: 04/24/20 08:13 04/24/20 08:13 04/24/20 04/24/20 08:13 08:13 WBC 8.5 RBC 3.38 L Hgb 10.2 L Hct 30.6 L MCV 91 MCH 30.0 MCHC 33.2 RDW 16.1 H Plt Count 272 Seg Neutrophils % 50.3 Sodium 137.1 Potassium 4.3 Chloride 101 Carbon Dioxide 30 Anion Gap 6 BUN 20 Creatinine 0.54 Est GFR ( Amer) > 60 Glucose 110 Calcium 8.8 04/15/20 04/15/20 15:39 15:39 Creatine Kinase 90 CK-MB (CK-2) 0.72 Troponin I < 0.012 NT-Pro-B Natriuret Pep 494 H Impressions: Head CT 04/15/20 06:27 IMPRESSION: 1. No acute intracranial hemorrhage, mass, or evidence of acute territorial infarct. 2. Chronic encephalomalacia and gliosis in the right temporal lobe with right temporal craniectomy, stable from prior. EVIDENCE OF ACUTE STROKE: NO. Soft Tissue Neck CT 04/15/20 06:27 IMPRESSION: 1. At the posterior aspect of the aortic arch there appears to be a double lumen, possibly secondary to tortuosity, however this is a new appearance for the patient and there is also new surrounding soft tissue attenuation at the aortic arch, and dissection cannot be excluded. Further evaluation with CT angiography of the chest is recommended. 2. 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 Differential includes Warthin's tumor, pleomorphic adenoma, other soft tissue masses, given increase in size, ENT consultation is recommended. 3. Multiple bilateral thyroid nodules, not significantly changed since 2018. Ankle X-Ray 04/15/20 12:40 IMPRESSION: NO RADIOGRAPHIC EVIDENCE OF ACUTE INJURY. Carotid Doppler Study 04/20/20 00:00 IMPRESSION: NO HEMODYNAMICALLY SIGNIFICANT STENOSIS. Lower Extremity Ultrasound 04/20/20 00:00 IMPRESSION: NORMAL BILATERAL LOWER EXTREMITY ARTERIAL DOPPLER. PICC Line Insertion 04/20/20 00:00 IMPRESSION: SUCCESSFUL PLACEMENT OF A 5 FR DUAL LUMEN 40 CM PICC IN THE LEFT BASILIC VEIN. Abdomen/Pelvis CTA 04/21/20 00:00 IMPRESSION: [place] type B dissection with short interval 4 mm increase in size (now measuring 4.8 x 4.9 cm in greatest orthogonal dimension) without proximal or distal extension or rupture. Small focal outpouching of the infrarenal abdominal aorta does not meet minimum measurement criteria for characterization as a saccular aneurysm. Chest/Abdomen CTA 04/21/20 00:00 IMPRESSION: [place] type B dissection with short interval 4 mm increase in size (now measuring 4.8 x 4.9 cm in greatest orthogonal dimension) without proxi mal or distal extension or rupture. Small focal outpouching of the infrarenal abdominal aorta does not meet minimum measurement criteria for characterization as a saccular aneurysm. Chest X-Ray 04/22/20 05:00 IMPRESSION: 1. No evidence of acute pulmonary abnormality. Stable cardiomediastinal silhouette. 2. Interval removal of a left upper extremity PICC. 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 Rouse all benign (5) Chronic obstructive pulmonary disease Qualifiers: COPD type: chronic bronchitis Is this a current diagnosis for this admission?: Yes (6) Seizure Is this a current diagnosis for this admission?: Yes Plan: Continues to current medications - Time Time Spent with patient: 15-24 minutes Level of Care: IMCU Medications reviewed and adjusted accordingly: Yes Anticipated discharge: Home with Homehealth Anticipated DC Timeframe: within 24 hours - Plan Summary Plan Summary: Discussed with the patient and also discussed with the patient regarding the patient's current conditions follow-up appointment keep her blood pressure under well control and will get the physical therapy evaluations repeat the blood work and hopefully with remained stable discharge tomorrow morning with the home health
[2020-04-25] MEDS: CLONIDINE HCL 0.1 MG TABLET PO SCH ×2 (01:19→09:33)
[2020-04-25] MEDS: DILTIAZEM HCL 60 MG TABLET PO SCH (06:46)
[2020-04-25] MEDS: PANTOPRAZOLE SODIUM 40 MG TABLET.DR PO SCH (06:47)
[2020-04-25] MEDS: INSULIN REG, HUMAN 100 UNIT/ML 3 ML VIAL (PYX) SUBCUT SCH ×2 (08:34→11:46)
--- NOTE | 2020-04-25 08:35 | PDOC DISCHARGE SUMMARY ---
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 Is this a current diagnosis for this admission?: Yes (3) Mass of right parotid gland Is this a current diagnosis for this admission?: Yes (4) Multiple thyroid nodules Is this a current diagnosis for this admission?: Yes (5) Chronic obstructive pulmonary disease Is this a current diagnosis for this admission?: Yes (6) Seizure Is this a current diagnosis for this admission?: Yes - Additional Information Resuscitation Status: Full Code Discharge Diet: Cardiac Discharge Activity: Activity As Tolerated Referrals: OLU JONES PA-C [Primary Care Provider] - Follow up as needed (f/u vidant on 05/01 vasculer surgery f/u in offce 1 wk ) Prescriptions: Diltiazem HCl [Cardizem 60 mg Tablet] 60 mg PO Q8 #90 tablet Clonidine HCl [Catapres 0.1 mg Tablet] 0.1 mg PO Q8A #90 tablet Carvedilol [Coreg 12.5 mg Tablet] 50 mg PO Q12 #60 tablet Phenytoin Sodium Extended [Dilantin 100 mg Capsule.er] 100 mg PO Q12 #60 capsule Levetiracetam [Keppra Xr 500 mg Tab.sr] 750 mg PO DAILY #30 tab.sr.24h Lisinopril [Prinivil 10 mg Tablet] 40 mg PO DAILY #30 tablet Home Medications: Ergocalciferol (Vitamin D2) [Drisdol 50,000 unit (1.25MG) Capsule] 50,000 unit PO MO 04/21/18 Multivitamin [Daily Multiple Vitamin] 1 tab PO Q6AM 04/21/18 Carvedilol [Coreg 12.5 mg Tablet] 50 mg PO Q12 #60 tablet 04/25/20 Clonidine HCl [Catapres 0.1 mg Tablet] 0.1 mg PO Q8A #90 tablet 04/25/20 Diltiazem HCl [Cardizem 60 mg Tablet] 60 mg PO Q8 #90 tablet 04/25/20 Levetiracetam [Keppra Xr 500 mg Tab.sr] 750 mg PO DAILY #30 tab.sr.24h 04/25/20 Lisinopril [Prinivil 10 mg Tablet] 40 mg PO DAILY #30 tablet 04/25/20 Phenytoin Sodium Extended [Dilantin 100 mg Capsule.er] 100 mg PO Q12 #60 capsule 04/25/20 History of Present Illiness History of Present Illness: MARA SPEARS is a 64 year old female Patient was admitting in the ICU for the altered mental status and a chest pain patient was found to be aortic dissections Patient initially put on a esmolol drip to control the blood pressure and patient was put on a p.o. medication and transferred to the medical floor Hospital Course Hospital Course: This is 64-year-old female's with a history of the hypertension hyperlipidemia seizures disorder chronic smoker history of the alcoholism and a history of the parotid tumor and thyroid nodules which all benign came to the emergency departments with a complaining some altered mental status and fall Patient underwent for the CT angiogram which found the aortic dissections and the patient at this point initially transfer to the [place] and suggest there is no need to transfer just continues to control the blood pressures and follow outpatient And was admitting in the ICU stay for almost 8 days patient is responds very well with the treatment changed the p.o. blood pressure medications IntensivistTalk to the vascular surgeon in the [facility] and agreement will both suggest to follow outpatient no need to be transfer Repeat CT scan was all stable Patient's all blood work is stable Patient's otherwise denied any chest pain no short of breath no abdominal pain His blood pressure is well under control Discussed with the patient regarding the patient's current conditions regarding the blood pressure medications and follow-up with the vascular surgery Patient is discharged with home health Physical Exam Vital Signs: Temp Pulse Resp BP Pulse Ox 98.0 F 68 11 L 135/89 H 99 04/25/20 07:22 04/25/20 07:22 04/25/20 07:22 04/25/20 07:22 04/25/20 07:22 Intake & Output 04/24/20 04/25/20 04/26/20 06:59 06:59 06:59 Intake Total 0 341 Balance 0 341 Weight 45.8 kg 52.1 kg General appearance: PRESENT: no acute distress, well-developed, well-nourished Head exam: PRESENT: atraumatic, normocephalic Eye exam: PRESENT: conjunctiva pink, EOMI, PERRLA. ABSENT: scleral icterus Ear exam: PRESENT: normal external ear exam Mouth exam: PRESENT: moist, tongue midline Neck exam: ABSENT: carotid bruit, JVD, lymphadenopathy, thyromegaly Respiratory exam: PRESENT: clear to auscultation [place]. ABSENT: rales, rhonchi, wheezes Cardiovascular exam: PRESENT: RRR. ABSENT: diastolic murmur, rubs, systolic murmur Pulses: PRESENT: normal dorsalis pedis pul Vascular exam: PRESENT: normal capillary refill GI/Abdominal exam: PRESENT: normal bowel sounds, soft. ABSENT: distended, guarding, mass, organolmegaly, rebound, tenderness Rectal exam: PRESENT: deferred Extremities exam: PRESENT: full ROM. ABSENT: calf tenderness, clubbing, pedal edema Neurological exam: PRESENT: alert, awake, oriented to person, oriented to place, oriented to time, oriented to situation, CN II-XII grossly intact. ABSENT: motor sensory deficit Psychiatric exam: PRESENT: appropriate affect, normal mood. ABSENT: homicidal ideation, suicidal ideation Skin exam: PRESENT: dry, intact, warm. ABSENT: cyanosis, rash Results Laboratory Results: WBC 8.5 10^3/uL (4.0-10.5) 04/24/20 08:13 RBC 3.38 10^6/uL (3.72-5.28) L 04/24/20 08:13 Hgb 10.2 g/dL (12.0-15.5) L 04/24/20 08:13 Hct 30.6 % (36.0-47.0) L 04/24/20 08:13 MCV 91 fl (80-97) 04/24/20 08:13 MCH 30.0 pg (27.0-33.4) 04/24/20 08:13 MCHC 33.2 g/dL (32.0-36.0) 04/24/20 08:13 RDW 16.1 % (11.5-14.0) H 04/24/20 08:13 Plt Count 272 10^3/uL (150-450) 04/24/20 08:13 Lymph % (Auto) 37.1 % (13-45) 04/24/20 08:13 [place] % (Auto) 9.7 % (3-13) 04/24/20 08:13 Eos % (Auto) 1.8 % (0-6) 04/24/20 08:13 Baso % (Auto) 1.1 % (0-2) 04/24/20 08:13 Absolute Neuts (auto) 4.3 10^3/uL (1.7-8.2) 04/24/20 08:13 Absolute Lymphs (auto) 3.2 10^3/uL (0.5-4.7) 04/24/20 08:13 Absolute Monos (auto) 0.8 10^3/uL (0.1-1.4) 04/24/20 08:13 Absolute Eos (auto) 0.2 10^3/uL (0.0-0.6) 04/24/20 08:13 Absolute Basos (auto) 0.1 10^3/uL (0.0-0.2) 04/24/20 08:13 Seg Neutrophils % 50.3 % (42-78) 04/24/20 08:13 PT 14.1 SEC (11.4-15.4) 04/15/20 15:39 INR 1.07 04/15/20 15:39 APTT 38.2 SEC (23.5-35.8) H 04/15/20 15:39 D-Dimer 2.27 ug/mL (0.00-0.50) H 04/15/20 15:39 Sodium 137.1 mmol/L (137-145) 04/24/20 08:13 Potassium 4.3 mmol/L (3.6-5.0) 04/24/20 08:13 Chloride 101 mmol/L (98-107) 04/24/20 08:13 Carbon Dioxide 30 mmol/L (22-30) 04/24/20 08:13 Anion Gap 6 (5-19) 04/24/20 08:13 BUN 20 mg/dL (7-20) 04/24/20 08:13 Creatinine 0.54 mg/dL (0.52-1.25) 04/24/20 08:13 Est GFR ( Amer) > 60 (>60) 04/24/20 08:13 Est GFR (Non-Af Amer) Cancelled 04/16/20 09:30 Est GFR (MDRD) Non-Af > 60 (>60) 04/24/20 08:13 Glucose 110 mg/dL (75-110) 04/24/20 08:13 POC Glucose 95 mg/dL (70-110) 04/25/20 07:22 Lactic Acid 1.0 mmol/L (0.7-2.1) 04/19/20 04:16 Calcium 8.8 mg/dL (8.4-10.2) 04/24/20 08:13 Magnesium 2.1 mg/dL (1.6-2.3) 04/22/20 05:48 Total Bilirubin 0.5 mg/dL (0.2-1.3) 04/22/20 05:48 Direct Bilirubin 0.0 mg/dL (0.0-0.4) 04/22/20 05:48 Neonat Total Bilirubin Not Reportable 04/22/20 05:48 Neonat Direct Bilirubin Not Reportable 04/22/20 05:48 Neonat Indirect Bili Not Reportable 04/22/20 05:48 AST 32 U/L (14-36) 04/22/20 05:48 ALT 14 U/L (<35) 04/22/20 05:48 Alkaline Phosphatase 102 U/L (38-126) 04/22/20 05:48 Lactate Dehydrogenase 209 U/L (120-246) 04/15/20 15:39 Creatine Kinase 90 U/L (30-135) 04/15/20 15:39 CK-MB (CK-2) 0.72 ng/mL (<4.55) 04/15/20 15:39 Troponin I < 0.012 ng/mL 04/15/20 15:39 NT-Pro-B Natriuret Pep 494 pg/mL (<125) H 04/15/20 15:39 Total Protein 6.4 g/dL (6.3-8.2) 04/22/20 05:48 Albumin 3.0 g/dL (3.5-5.0) L 04/22/20 05:48 EGFR Cancelled 04/16/20 09:30 Urine Color LANI 04/15/20 10:00 Urine Appearance CLEAR 04/15/20 10:00 Urine pH 8.0 (5.0-9.0) 04/15/20 10:00 Ur Specific [place] 1.031 04/15/20 10:00 Urine Protein NEGATIVE mg/dL (NEGATIVE) 04/15/20 10:00 Urine Glucose (UA) NEGATIVE mg/dL (NEGATIVE) 04/15/20 10:00 Urine Ketones NEGATIVE mg/dL (NEGATIVE) 04/15/20 10:00 Urine Blood NEGATIVE (NEGATIVE) 04/15/20 10:00 Urine Nitrite (Reflex) NEGATIVE (NEGATIVE) 04/15/20 10:00 Urine Bilirubin NEGATIVE (NEGATIVE) 04/15/20 10:00 Urine Urobilinogen NEGATIVE mg/dL (<2.0) 04/15/20 10:00 Leukocyte Esterase Rfl NEGATIVE (NEGATIVE) 04/15/20 10:00 Urine RBC (Auto) 0 /HPF 04/15/20 10:00 Urine WBC (Reflex) < 1 /HPF 04/15/20 10:00 Urine Ascorbic Acid NEGATIVE (NEGATIVE) 04/15/20 10:00 Urine Opiates Screen NEGATIVE 04/15/20 10:00 Urine Methadone Screen NEGATIVE 04/15/20 10:00 Ur Barbiturates Screen NEGATIVE 04/15/20 10:00 Phenytoin 4.2 ug/mL (10.0-20.0) L 04/15/20 08:00 Ur Phencyclidine Scrn NEGATIVE 04/15/20 10:00 Ur Amphetamines Screen NEGATIVE 04/15/20 10:00 U Benzodiazepines Scrn NEGATIVE 04/15/20 10:00 Urine Cocaine Screen NEGATIVE 04/15/20 10:00 U Marijuana (THC) Screen NEGATIVE 04/15/20 10:00 Serum Alcohol < 10 mg/dL (NONE DETECTED) 04/15/20 06:13 Blood Type B POSITIVE 04/15/20 17:20 Antibody Screen NEGATIVE 04/15/20 17:20 04/15/20 15:39 CK-MB (CK-2) 0.72 Troponin I < 0.012 NT-Pro-B Natriuret Pep 494 H Impressions: Chest X-Ray 04/15/20 06:27 IMPRESSION: Clear lungs. Head CT 04/15/20 06:27 IMPRESSION: 1. No acute intracranial hemorrhage, mass, or evidence of acute territorial infarct. 2. Chronic encephalomalacia and gliosis in the right temporal lobe with right temporal craniectomy, stable from prior. EVIDENCE OF ACUTE STROKE: NO. Soft Tissue Neck CT 04/15/20 06:27 IMPRESSION: 1. At the posterior aspect of the aortic arch there appears to be a double lumen, possibly secondary to tortuosity, however this is a new appearance for the patient and there is also new surrounding soft tissue attenuation at the aortic arch, and dissection cannot be excluded. Further evaluation with CT angiography of the chest is recommended. 2. 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 Differential includes Warthin's tumor, pleomorphic adenoma, other soft tissue masses, given increase in size, ENT consultation is recommended. 3. Multiple bilateral thyroid nodules, not significantly changed since 2018. Chest/Abdomen CTA 04/15/20 09:15 IMPRESSION: [place] type B dissection. Maximum aortic diameter 5.4 x 5.0 cm. Dissection extends into the upper abdomen. Ankle X-Ray 04/15/20 12:40 IMPRESSION: NO RADIOGRAPHIC EVIDENCE OF ACUTE INJURY. Chest X-Ray 04/16/20 06:00 IMPRESSION: Tortuous aneurysmal descending thoracic aorta, increased in size fr om prior, possibly related to portable technique. Emphysematous change. Chest X-Ray 04/17/20 06:00 IMPRESSION: COPD. ECTATIC THORACIC AORTA. NO ACUTE RADIOGRAPHIC FINDING IN THE CHEST. Chest X-Ray 04/18/20 06:00 IMPRESSION: Unchanged COPD and ectasia/dilatation of the thoracic aorta. Carotid Doppler Study 04/20/20 00:00 IMPRESSION: NO HEMODYNAMICALLY SIGNIFICANT STENOSIS. Lower Extremity Ultrasound 04/20/20 00:00 IMPRESSION: NORMAL BILATERAL LOWER EXTREMITY ARTERIAL DOPPLER. PICC Line Insertion 04/20/20 00:00 IMPRESSION: SUCCESSFUL PLACEMENT OF A 5 FR DUAL LUMEN 40 CM PICC IN THE LEFT BASILIC VEIN. Abdomen/Pelvis CTA 04/21/20 00:00 IMPRESSION: [place] type B dissection with short interval 4 mm increase in size (now measuring 4.8 x 4.9 cm in greatest orthogonal dimension) without proximal or distal extension or rupture. Small focal outpouching of the infrarenal abdominal aorta does not meet minimum measurement criteria for characterization as a saccular aneurysm. Chest/Abdomen CTA 04/21/20 00:00 IMPRESSION: [place] type B dissection with short interval 4 mm increase in size (now measuring 4.8 x 4.9 cm in greatest orthogonal dimension) without proximal or distal extension or rupture. Small focal outpouching of the infrarenal abdominal aorta does not meet minimum measurement criteria for characterization as a saccular aneurysm. Chest X-Ray 04/21/20 05:00 IMPRESSION: Markedly increased mediastinal width consistent with significant worsening of this patient's known aortic dissection. Left upper extremity PICC demonstrating appropriate positioning. Chest X-Ray 04/22/20 05:00 IMPRESSION: 1. No evidence of acute pulmonary abnormality. Stable cardiomediastinal silhouette. 2. Interval removal of a left upper extremity PICC. Plan Time Spent: Greater than 30 Minutes - Follow-up with the vascular surgery at [place] Stroke Is this a Stroke Patient?: No Acute Heart Failure - Is this a Heart Failure Patient?: No
[2020-04-25] MEDS: LISINOPRIL 10 MG TABLET PO SCH (09:32)
[2020-04-25] MEDS: LEVETIRACETAM XR 500 MG TAB.SR.24H PO SCH (09:33)
[2020-04-25] MEDS: DOCUSATE SODIUM 100 MG CAPSULE PO SCH (09:33)
[2020-04-25] MEDS: PHENYTOIN SODIUM EXTENDED 100 MG CAPSULE PO SCH (09:33)
[2020-04-25] MEDS: CARVEDILOL 12.5 MG TABLET PO SCH (09:33)
[2020-04-25 10:09] VITALS: BP 105/74
== END 2020-04-25 12:14 | disposition home health service (06) | DRG 301 ==
LOC: ER 06:03 → EH 12:51 → ICU 15:51 → 3W 04-23 14:49
PROVIDERS: ADMIT Family Medicine; ATTEND Family Medicine
PROC: 03HB33Z Insertion of Infusion Device into Right Radial Artery, Percutaneous Approach (ICD-10-PCS; principal; 2020-04-15)
PROC: 02HV33Z Insertion of Infusion Device into Superior Vena Cava, Percutaneous Approach (ICD-10-PCS; 2020-04-20)
PROC: B548ZZA Ultrasonography of Superior Vena Cava, Guidance (ICD-10-PCS; 2020-04-20)
DX: I71.01 Dissection of thoracic aorta (principal); I16.0 Hypertensive urgency; J44.9 Chronic obstructive pulmonary disease, unspecified; E11.9 Type 2 diabetes mellitus without complications; I10 Essential (primary) hypertension; Z60.2 Problems related to living alone; Z91.81 History of falling; Z79.899 Other long term (current) drug therapy; F17.210 Nicotine dependence, cigarettes, uncomplicated; G40.909 Epilepsy, unspecified, not intractable, without status epilepticus; E04.2 Nontoxic multinodular goiter; R22.1 Localized swelling, mass and lump, neck; R41.3 Other amnesia; E78.5 Hyperlipidemia, unspecified; F10.20 Alcohol dependence, uncomplicated
CPT/HCPCS: 36415; 36573; 36620; 70450; 70491; 71045; 71275; 74174; 80048; 80053; 80185; 80307; 81001; 82550; 82553; 82962; 83605; 83615; 83735; 83880; 84484; 85025; 85027; 85379; 85610; 85730; 86850; 86900; 86901; 93005; 93010; 93306; 93308; 93880; 93925; 96365; 96366; 99221; 99291; 99292; J1165; J1642; J1953; J2060; J2270; J3475; J3486; J3490